=== PATIENT | male | born 1945 | race Caucasian/White ===

== ENCOUNTER 2019-01-19 06:18 | Emergency (ER) | payer MEDICARE, OTHER ==
[~2019-01-19] VITALS: Ht 177.8 cm; Wt 62.1 kg
--- OUTSIDE RECORDS SUMMARY | ~2019-01-19 | XMS | Clinical Summary ---
Demographics + + + | Address | [address] | | | [place] [address] | + + + | Home Phone | | + + + | Preferred Language | Unknown | + + + | Marital Status | | + + + | Nondenominational Affiliation | MET | + + + | Race | White | + + + | Ethnic Group | Not or | + + + Author + + + | Author | [facility] | + + + | Organization | [facility] | + + + | Address | Unknown | + + + | Phone | Unavailable | + + + Support + + + + + | Name | Relationship | Address | Phone | + + + + + | Marnie Osorio | ECON | [address] | | | | | [place], [place] | | | | | [address] | | + + + + + | Zoey Marie | ECON | Unknown | | + + + + + | Dionne Alba | ECON | Unknown | | + + + + + Care Team Providers + +------+ + | Care Architecture Intern Name | Role | Phone | + +------+ + | Vik Kraft DO | PCP | | + +------+ + Source Comments [facility] is fully live on both EpicCare Ambulatory and EpicCare InPatient.Formerly [facility], Later [facility] Allergies No Known Allergies Medications + + + +---------+------+------+-------+ | Medication | Sig | Dispensed | Refills | Star | End | Statu | | | | | | t | Date | s | | | | | | Date | | | + + + +---------+------+------+-------+ | levothyroxine 75 | Take 75 mcg by mouth | | 0 | | | Activ | | mcg Oral Tablet | once daily. | | | | | e | + + + +---------+------+------+-------+ | metoprolol | Take 50 mg by mouth | | 0 | | | Activ | | tartrate 25 mg Oral | two times daily. | | | | | e | | Tablet | | | | | | | + + + +---------+------+------+-------+ | | Take 1-2 Tabs by | 20 Tab | 0 | 03/1 | | Activ | | HYDROcodone-acetamin | mouth every four | | | 6/20 | | e | | ophen 5-325 mg Oral | hours as needed. Not | | | 12 | | | | Tablet | to exceed 10 | | | | | | | | tablets per any 24 | | | | | | | | hour period. (Not to | | | | | | | | exceed 3250 mg of | | | | | | | | acetaminophen from | | | | | | | | all products per 24 | | | | | | | | hour period.) | | | | | | + + + +---------+------+------+-------+ | warfarin 5 mg Oral | Take 5 mg by mouth | | 0 | | | Activ | | tablet | once daily. | | | | | e | + + + +---------+------+------+-------+ | Iron, Carbonyl 65 | Take by mouth. | | 0 | | | Activ | | mg Oral tablet | | | | | | e | + + + +---------+------+------+-------+ | pyridoxine | Take 200 mg by mouth | | 0 | | | Activ | | (VITAMIN B-6) 100 mg | once daily. | | | | | e | | Oral tablet | | | | | | | + + + +---------+------+------+-------+ | cyanocobalamin | Take 1,000 mcg by | | 0 | | | Activ | | (VITAMIN B-12) 1,000 | mouth once daily. | | | | | e | | mcg Oral tablet | | | | | | | + + + +---------+------+------+-------+ | gabapentin 300 mg | Take 300 mg by mouth | | 0 | | | Activ | | Oral capsule | three times daily. | | | | | e | | | | | | | | | + + + +---------+------+------+-------+ | NITROGLYCERIN SL | Place under tongue. | | 0 | | | Activ | | | | | | | | e | + + + +---------+------+------+-------+ | CEPHALEXIN ORAL | Take 300 mg by | | 0 | | | Activ | | | mouth. | | | | | e | + + + +---------+------+------+-------+ Active Problems + + + | Problem | Noted Date | + + + | S/P AVR (aortic valve replacement) | 06/07/2010 | + + + | S/P MVR (mitral valve replacement) | 06/07/2010 | + + + | Duodenal ulcer without hemorrhage or perforation and without | 05/06/2010 | | obstruction | | + + + + + | Overview: ICD10 | + + + + + | Endocarditis | 03/24/2010 | + + + Social History + +-------+ +--------+------+ | Tobacco [...] recent travel history available. | + + Last Filed Vital Signs + + + + + | Vital Sign | Reading | Time Taken | Comments | + + + + + | Blood Pressure | 122/65 | 05/11/2012 1:09 PM | | | | | PST | | + + + + + | Pulse | 79 | 05/11/2012 1:09 PM | | | | | PST | | + + + + + | Temperature | 36.4 C (97.6 F) | 05/11/2012 1:09 PM | | | | | PST | | + + + + + | Respiratory Rate | 16 | 06/04/2011 8:21 AM | | | | | PDT | | + + + + + | Oxygen Saturation | 82% | 05/11/2012 1:09 PM | | | | | PST | | + + + + + | Inhaled Oxygen | - | - | | | Concentration | | | | + + + + + | Weight | 71.3 kg (157 lb 3.2 | 05/11/2012 1:09 PM | | | | oz) | PST | | + + + + + | Height | 177.8 cm (5' 10") | 05/31/2011 7:58 PM | | | | | PDT | | + + + + + | Body Mass Index | 22.56 | 05/31/2011 7:58 PM | | | | | PDT | | + + + + + Plan of Treatment + + + + + | Health Maintenance | Due Date | Last Done | Comments | + + + + + | Pneumococcal | | | | | vaccination (1 of 2 | 2 | | | | - PCV13) | | | | + + + + + | Influenza (Flu) | | | | | vaccination (#1) | 9 | | | + + + + + Results Not on filefrom Last 3 Months Insurance + +--------+ +--------+ + +--------+ | Payer | Benefi | Subscriber | Effect | Phone | Address | Type | | | t Plan | ID | kvng | | | | | | / | | Dates | | | | | | Group | | | | | | + +--------+ +--------+ + +--------+ | MEDICARE | MEDICA | xxxxxxxxxxx | 03/21/19 | [phone] | [address] | [address] | | | RE A & | | 12-Pre | 1 [id number] | [address] | | | B | | sent | | [place], [place] | | | | | | | | [address] | | + +--------+ +--------+ + +--------+ | PROV PREF DIRECT | PROV | [id number] | 03/21/19 | | | PPO | | | PREF | | 10-Pre | | | | | | DIRECT | | sent | | | | + +--------+ +--------+ + +--------+ + +--------+ +--------+ + + | Guarantor Name | Accoun | Relation to | Date | Phone | Billing Address | | | t Type | Patient | of | | | | | | | | | | + +--------+ +--------+ + + | Clay Osorio | Person | Self | [birth year] | [address] | | | al/Fam | | 1946 | [phone] | [place] | | | scar | | | 2 (Home) | [phone] | + +--------+ +--------+ + + Advance Directives + + + + + | Type | Date Recorded | Patient | Explanation | | | | Inspector Casing | | + + + + + | Advance | | | | | Directives and | | | | | Living Will | | | | + + + + + | Advance | 06/01/2011 12:00 | | ADVANCE DIRECTIVE | | Directives and | AM | | | | Living Will | | | | + + + + + | Power of | | | | | Bark Press Operator | | | | + + + + + + + + + + | Code Status | Date | Date | Comments | | | Activated | Inactivated | | + + + + + | Full Code | 06/01/2011 | 06/04/2011 | | | | 7:28 AM | 6:00 PM | | + + + + + + + + +---+ | | | | | + + + +---+ | Full Code | 03/30/2010 | 07/28/2010 | | | | 8:09 PM | 12:37 AM | | + + + +---+ + + + +---+ | | | | | + + + +---+ | Full Code | 03/24/2010 | 03/30/2010 | | | | 2:46 PM | 2:52 PM | | + + + +---+
--- OUTSIDE RECORDS SUMMARY | ~2019-01-19 | XMS | Encounter Summary ---
Demographics + + + | Address | [address] | | | [place] [address] | + + + | Home Phone | | + + + | Preferred Language | Unknown | + + + | Marital Status | | + + + | Mu-Ism Affiliation | [id number] | + + + | Race | Unknown | + + + | Ethnic Group | Unknown | + + + Author + + + | Author | [facility] | | | and [place] | + + + | Organization | [facility] | | | and [place] | + + + | Address | Unknown | + + + | Phone | Unavailable | + + + Support + + + + + | Name | Relationship | Address | Phone | + + + + + | Marnie Osorio | ECON | [address] | | | | | [place] | | | | | [address] | | + + + + + Care Team Providers + +------+ + | Care Court Officer Name | Role | Phone | + +------+ + | Jesus Damon MD | PCP | | + +------+ + Reason for Visit + + + | Reason | Comments | + + + | Care Coordination | Appointment | + + + Encounter Details +--------+ + + + + | Date | Type | Department | Care Team | Description | +--------+ + + + + | 01/15/ | Telephone | [facility] | Nori Edwards, | Care Coordination | | 2019 | | INFECTIOUS DISEASE | Electrical Manufacturing Engineer | (Appointment) | | | | [address] | | | | | | [place], [place] | | | | | | [address] | | | | | | [phone] | | | +--------+ + + + + Social History + +-------+ +--------+------+ | Tobacco Use | Types | Packs/Day | Years | Date | | | | | Used | | + +-------+ +--------+------+ | Former Smoker | | 1 | | | + +-------+ +--------+------+ + + | Comments: quit about 33 yrs ago | + + + + + | Sex Assigned [...] as of this encounter Plan of Treatment +--------+---------+ + + + | Date | Type | Specialty | Care Team | Description | +--------+---------+ + + + | 03/01/ | Office | Cardiology | Kristy Luna DO | | | 2019 | Visit | | [address] | | | | | | [place] | | | | | | [phone] | | | | | | | | +--------+---------+ + + + documented as of this encounter Visit Diagnoses Not on filedocumented in this encounter"
--- OUTSIDE RECORDS SUMMARY | ~2019-01-19 | XMS | Encounter Summary ---
Demographics + + + | Address | [address] | | | [place] [address] | + + + | Home Phone | | + + + | Preferred Language | Unknown | + + + | Marital Status | | + + + | Jehovah'S Witness Affiliation | MET | + + + | Race | White | + + + | Ethnic Group | Not or | + + + Author + + + | Author | [facility] | + + + | Organization | [facility] | + + + | Address | Unknown | + + + | Phone | Unavailable | + + + Support + + + + + | Name | Relationship | Address | Phone | + + + + + | Marnie Osorio | ECON | [address] | | | | | [place], [place] | | | | | [address] | | + + + + + | Zoey Marie | ECON | Unknown | | + + + + + | Dionne Alba | ECON | Unknown | | + + + + + Care Team Providers + +------+ + | Care Treasury Director Name | Role | Phone | + +------+ + | Vik Kraft DO | PCP | | + +------+ + Reason for Visit PROC - Outpatient Surgery (Routine) +--------+ + + + + + | Status | Reason | Specialty | Diagnoses / | Referred By | Referred To | | | | | Procedures | Contact | Contact | +--------+ + + + + + | Closed | Specialty | Cardiac | Diagnoses | [place], | [place], | | | Services | Surgery | | Pranav Lemus, | MD Tiburcio | | | Required | | Endocarditis | DO [place] | [address] | | | | | , valve | [place] | [place] | | | | | unspecified, | CARDIOLOGY | [address] [place], | | | | | unspecified | [address] | [place] | | | | | cause | [place] | [address] | | | | | Procedures | [address] | | | | | | MI REMV | F | | | | | | [address] | [place], [place] | | | | | | ONE | [id number] | | | | | | LD/THORACOTM | Phone: | | | | | | Y MI REMV | [phone] | | | | | | EPICARD SYST | Fax: | | | | | | TWO | [phone] | | | | | | LD/THORACOTM | | | | | | | Y MI REMV | | | | | | | PERM XVEN | | | | | | | MATTHEW/VIVIEN | | | | | | | ACOTMY | | | +--------+ + + + + + Encounter Details +--------+---------+ + + + | Date | Type | Department | Care Team | Description | +--------+---------+ + + + | 04/27/ | Office | Cardiothoracic | Tiburcio Chung, | S/P AVR (aortic | | 2011 | Visit | Surgery at [facility] [address] | MD | valve replacement); | | | | [address] | | S/P MVR (mitral | | | | Rd Mailcode: [id number] | | valve replacement) | | | | Physician's | | | | | | [place], | | | | | | [place] [address] | | | | | | [phone] | | | +--------+---------+ + + + [...] + + + | Blood Pressure | 106/66 | 04/27/2011 2:58 PM | | | | | PST | | + + + + + | Pulse | 116 | 04/27/2011 2:58 PM | | | | | PST | | + + + + + | Temperature | - | - | | + + + + + | Respiratory Rate | 15 | 04/27/2011 2:58 PM | | | | | PST | | + + + + + | Oxygen Saturation | 100% | 04/27/2011 2:58 PM | | | | | PST | | + + + + + | Inhaled Oxygen | - | - | | | Concentration | | | | + + + + + | Weight | 67.1 kg (148 lb) | 04/27/2011 2:58 PM | | | | | PST | | + + + + + | Height | - | - | | + + + + + | Body Mass Index | 21.19 | 06/24/2010 3:05 AM | | | | | PDT | | + + + + + documented in this encounter Patient Instructions Patient Instructions Piero Goel - 04/27/2011 3:54 PM PST1. Last dose of warfarin (coumad in) on Wednesday, May 25, 2011 2. Start enoxaparin 60 mg (lovenox) sub-cutaneously every 12 hours as directed by pharmaci st on Saturday May 28, 2011 (morning and night) 3. Continue taking enoxaparin shots over the weekend (May 28 and May 29, and in AM of May 30). 4. Arrive at [facility] on Tuesday, May 31, 2011 in the afternoon for admission for anti-coagul ation 5. Tentatively plan surgery on Tuesday. (Electronically Signed) Piero Goel PA-C [facility] Cardiac Surgery documented in this encounter Progress Notes Piero Goel - 04/27/2011 4:03 PM [facility] Date of Service: 04/27/2011 Referring Providers: Pranav Souza DO Patient Care Team: Vik Kraft as PCP - General (Family Medicine) Pranav Souza (Internal Medicine) Reason for Visit: Postoperative check Subjective: Mr. Clay Osorio is well known to our service. 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 He had multiple complications including empyema requiring thoracotom y, duodenum perforation requiring ex-lap and PEG/J tube, renal failure and marked deconditio isela during his 4 month hospitalization. Over past 4 months, he has noticed development of quarter-sized bullae/pustule at inferior most sternotomy incision. It bursts spontaneously and yields blood/purulent fluid. Denies fevers, chills, pain. Saw a Cardiac Surgeon in [place], [place] for this. Obtained CT scan which demonstrated retained epicardial wires (no fl uid accumulation) and due to complexity, was referred to [facility] Cardiac Surgery. Has been on/ off antibiotics over the Fall/Winter secondary to development of PNA requiring hospitalizati on in [facility]. Most recently placed on SMX/TMZ for 1 month by his PCP for presumed staph infection. He has since recovered from his most recent illness/hospitalization and is seek ing our opinion. Other than above, he states that he is feeling well and making progress with his strength, energy, and appetite. Has been taking warfarin as directed and getting INR followed. The patient's current medications include: enoxaparin (LOVENOX) 60 mg/0.6 mL Subcutaneous Syringe, inject 1mg/kg by subcutaneous route every 12 hours levothyroxine 75 mcg Oral Tablet, Take 75 mcg by mouth once daily. metopro lol tartrate 25 mg Oral Tablet, Take 25 mg by mouth once daily. trimethoprim-sulfamethoxaz ole 160-800 mg Oral Tablet, Take 1 Tab by mouth two times daily. warfarin (COUMADIN) 4 mg Oral Tablet, Take 4 mg by mouth once daily. Objective: Vital Signs: BP 106/66 | Pulse 116 | RR 15 | Wt 67.132 kg (148 lb) | SpO2 100% General: thin middle-aged man, smiling,alert and cooperative. Chest: CTA bilateral. Chest Incision: well healed sternotomy incision. No clicks/rubs/crepitus with movement of sternum. Most inferior sternotomy incision has 2mm ulceration, healing, without surrounding erythema or purulence. Non-tender to palpation. Cardiovascular: irreg-irreg. (+) mechanical clicks. No rubs or gallops Extremities: [place], warm, dry, no peripheral edema . Studies: I personally reviewed the patient's CT abdomen form from outside hospital (November 10 2010) which demonstrates retained epicardial wire, well-healed sternotomy incision with intact peña rnal wires. Assessment/Plan: 66 yo man 1year s/p AVR/MVR mechanical valve replacement for MSSA endocarditis, multiple co mplications with extended ICU stay, now presents with retained epicardial wires and likely s uperficial infection vs. Inflammatory response secondary to same. As he is on life-long coumadin for his mechanical valves/a-fib, he will require bridging wi th enoxaparin and admission to [facility] for heparinization prior to surgery. Plan for surgery M arch 2011. He is to continue his TMP/SMZ for suppressive therapy until time of hospitalization. 1. Last dose of warfarin (coumadin) on Wednesday, May 25, 2011 2. Start enoxaparin 60 mg (lovenox) sub-cutaneously every 12 hours as directed by pharmaci st on Saturday May 28, 2011 (morning and night) 3. Continue taking enoxaparin shots over the weekend (May 28 and May 29, and in AM of May 30). 4. Arrive at [facility] on Tuesday, May 31, 2011 in the afternoon for admission for anti-coagul ation 5. Tentatively plan surgery on Tuesday. Above discussed with his PCP, Dr. Kraft (Electronically Signed) Piero Goel PA-C [facility] Cardiac Surgery documented in this encounter Plan of Treatment Not on filedocumented as of this encounter Procedures + +--------+ + + + | Procedure Name | Priori | Date/Time | Associated Diagnosis | Comments | | | ty | | | | + +--------+ + + + | OUTSIDE CARDIOLOGY | | 04/27/2011 | | Results for this | | | | 12:00 AM | | procedure are in the | | | | PST | | results section. | + +--------+ + + + | OUTSIDE CARDIOLOGY | | 04/27/2011 | | Results for this | | | | 12:00 AM | | procedure are in the | | | | PST | | results section. | + +--------+ + + + documented in this encounter Results OUTSIDE CARDIOLOGY (04/27/2011 12:00 AM PST) + + + | Narrative | Performed At | + + + | | | | | | + + + + + | Procedure Note | + + | Angy Carrillo - 03/30/2012 2:48 PM PST | + + OUTSIDE QUITA (04/27/2011 12:00 AM PST) + + + | Narrative | Performed At | + + + | | | | | | + + + + + | Procedure Note | + + | Angy Carrillo - 02/29/2012 1:47 PM PST | + + documented in this encounter Visit Diagnoses + + | Diagnosis | + + | S/P AVR (aortic valve replacement) Heart valve replaced by other means | + + | S/P MVR (mitral valve replacement) Heart valve replaced by other means | + + documented in this encounter"
--- OUTSIDE RECORDS SUMMARY | ~2019-01-19 | XMS | Clinical Summary ---
Demographics + + + | Address | [address] | | | [place] [address] | + + + | Home Phone | | + + + | Preferred Language | Unknown | + + + | Marital Status | | + + + | Bahai Affiliation | 1077 | + + + | Race | Unknown | + + + | Ethnic Group | Unknown | + + + Author + + + | Author | [facility] | | | and [place] | + + + | Organization | [facility] | | | and [place] | + + + | Address | Unknown | + + + | Phone | Unavailable | + + + Support + + + + + | Name | Relationship | Address | Phone | + + + + + | Marnie Osorio | ECON | [address] | | | | | [place] | | | | | [address] | | + + + + + Care Team Providers + +------+ + | Care Automotive Accessory Installer Name | Role | Phone | + +------+ + | Jesus Damon MD | PCP | | + +------+ + Allergies + + + + + + | Active Allergy | Reactions | Severity | Noted | Comments | | | | | Date | | + + + + + + | Uncoded | Other (See Comments) | Low | 08/03/19 | "runny nose and | | Nonscreenable | | | 16 | itchy eyes" | | Allergen | | | | | + + + + + + Medications + + + +---------+------+------+-------+ | Medication | Sig | Dispensed | Refills | Star | End | Statu | | | | | | t | Date | s | | | | | | Date | | | + + + +---------+------+------+-------+ | metoprolol | Take 25 mg by mouth | | 0 | 11/19 | | Activ | | tartrate (LOPRESSOR) | 2 times daily. | | | 07/08 | | e | | 25 mg tablet | | | | 12 | | | + + + +---------+------+------+-------+ | nitroglycerin | Dissolve 1 tablet | | 0 | /1 | | Activ | | (NITROSTAT) 0.4 mg | under tongue every 5 | | | 4/20 | | e | | SL tablet | minutes up to 3 | | | 12 | | | | | tablets total for | | | | | | | | chest pain. Call 911 | | | | | | | | or go to ER if not | | | | | | | | relieved. | | | | | | + + + +---------+------+------+-------+ | warfarin | Take 1 tablet by | | 0 | 11/19 | | Activ | | (COUMADIN) 5 mg | mouth once daily at | | | 4/20 | | e | | tablet | 6 pm | | | 12 | | | + + + +---------+------+------+-------+ | levothyroxine | Take 75 mcg by mouth | | 0 | 091 | | Activ | | (SYNTHROID, | Daily. | | | 4/20 | | e | | LEVOTHROID) 75 MCG | | | | 12 | | | | tablet | | | | | | | + + + +---------+------+------+-------+ | Ferrous Sulfate | 2 tabs daily | | 0 | 08/2 | | Activ | | Dried (GNP IRON) 200 | | | | 2/20 | | e | | (65 FE) MG TABS | | | | 12 | | | + + + +---------+------+------+-------+ | pyridOXINE | Take 100 mg by mouth | | 0 | | | Activ | | (VITAMIN B-6) 50 mg | Daily. | | | | | e | | tablet | | | | | | | + + + +---------+------+------+-------+ | vitamin B-12 | Take 1,000 mcg by | | 0 | | | Activ | | (CYANOCOBALAMIN) | mouth Daily. | | | | | e | | 1000 MCG tablet | | | | | | | + + + +---------+------+------+-------+ | cephalexin | Take 250 mg by mouth | | 0 | | | Activ | | (KEFLEX) 250 mg | 2 times daily. | | | | | e | | capsule | | | | | | | + + + +---------+------+------+-------+ | gabapentin | Take 1 tablet by | 90 | 2 | 01/2 | | Activ | | (NEURONTIN) 300 mg | mouth three times | capsule | | 8/20 | | e | | capsuleIndications: | daily as needed. | | | 13 | | | | Bilateral ankle pain | | | | | | | + + + +---------+------+------+-------+ | MULTIPLE VITAMIN | Take by mouth | | 0 | | | Activ | | PO | daily. | | | | | e | + + + +---------+------+------+-------+ | Lipoic Acid 150 MG | Take 150 mg by mouth | | 0 | | | Activ | | CAPS | daily as needed | | | | | e | | | (1-2 tabs daily | | | | | | | | prn). | | | | | | + + + +---------+------+------+-------+ | Ascorbic Acid | Take 1,000 mg by | | 0 | | | Activ | | (VITAMIN C) 1000 MG | mouth daily. | | | | | e | | tablet | | | | | | | + + + +---------+------+------+-------+ | digoxin (LANOXIN) | Take 1 tablet by | | 0 | 07/2 | | Activ | | 125 mcg tablet | mouth daily. | | | 3/20 | | e | | | | | | 18 | | | + + + +---------+------+------+-------+ | ferrous sulfate | Take 325 mg by mouth | | 0 | | | Activ | | 325 mg tablet | 2 (two) times | | | | | e | | | daily. | | | | | | + + + +---------+------+------+-------+ | Flaxseed, Linseed, | Take by mouth | | 0 | | | Activ | | (FLAXSEED OIL) 1000 | daily. | | | | | e | | MG CAPS | | | | | | | + + + +---------+------+------+-------+ | folic acid 1 mg | Take 1 mg by mouth | | 0 | | | Activ | | tablet | daily. | | | | | e | + + + +---------+------+------+-------+ | metoprolol | Take 1 tablet by | | 0 | 06/2 | | Activ | | succinate | mouth nightly. | | | 07/08 | | e | | (TOPROL-XL) 25 mg 24 | | | | 19 | | | | hr tablet | | | | | | | + + + +---------+------+------+-------+ | | Take 1 tablet by | | 0 | 03/1 | | Activ | | sulfamethoxazole-tri | mouth 2 (two) times | | | 20 | | e | | methoprim (BACTRIM | daily. | | | 19 | | | | DS) 800-160 mg per | | | | | | | | tablet | | | | | | | + + + +---------+------+------+-------+ | gabapentin | Take 300 mg by mouth | | 0 | | | Activ | | (NEURONTIN) 300 mg | every evening. | | | | | e | | capsule | | | | | | | + + + +---------+------+------+-------+ | nitroglycerin | Place 1 tablet under | | 0 | 11/1 | | Activ | | (NITROSTAT) 0.4 mg | the tongue every 5 | | | 2/20 | | e | | SL tablet | (five) minutes as | | | 18 | | | | | needed. | | | | | | + + + +---------+------+------+-------+ | SF 5000 PLUS 1.1 % | | | 0 | 07/0 | | Activ | | CREA | | | | 8/20 | | e | | | | | | 19 | | | + + + +---------+------+------+-------+ | metoprolol | | | 0 | 10/0 | | Activ | | tartrate (LOPRESSOR) | | | | 3/20 | | e | | 50 mg tablet | | | | 18 | | | + + + +---------+------+------+-------+ | amoxicillin | | | 0 | 02/18 | 12/20 | Disco | | (AMOXIL) 500 MG | | | | 04/09 | 05/10 | ntinu | | capsule | | | | 18 | 19 | ed | + + + +---------+------+------+-------+ Active Problems + + + | Problem | Noted Date | + + + | Muscular wasting and disuse atrophy, not elsewhere classified | 10/12/2018 | + + + | Persistent atrial fibrillation | 02/01/2018 | + + + | Thyroid disease | 01/30/2018 | + + + | Anticoagulated on Coumadin | 10/10/2017 | + + + | Dyslipidemia | 10/10/2017 | + + + | History of mitral valve replacement with mechanical valve | 10/10/2017 | + + + | Supratherapeutic INR | 08/03/2015 | + + + | Atrial flutter | 03/08/2013 | + + + + + | Overview: Last Assessment & Plan: | | A fib/flutter. On warfarin, mechanical heart valve. | | 24hr HM, 02/10/2016: A fib, 69-141, averaging 95bpm. | + + + + + | Essential hypertension | 03/08/2013 | + + + + + | Overview: Last Assessment & Plan: HTN, controlled, continue | | current meds. Labs: 02/05/2016: Sodium 138, potassium 5, glucose | | 88, BUN 30/creatinine 1.27. GFR 56. CRP 6.5. Hemoglobin | | 12.9/hematocrit 39. Platelets 239. ESR 16 | + + + + + | Valvular heart disease | 03/08/2013 | + + + + + | Overview: Last Assessment & Plan: AVR (#23 SJM) / MVR (#29 | | SJM). Anticoagulation per PCP. Endocarditis prophylaxis | | reenforced. 70yo WM, doing relatively well, back today to | | follow-up on his 24-hour Holter monitor. He reports he tries to | | stay as active as he can with woodworking but has difficulty with | | prolonged walking due to neuropathy to his feet. He denies any | | significant chest discomfort, shortness of breath, or | | lightheadedness. He walked 500 feet with me today at his own | | moderate pace and tolerated it well without any chest pain, | | palpitations, syncope, dyspnea, or lightheadedness but sometimes | | has problem with his balance but self corrects unsteady on his | | feet. He reports episodes of intermittent palpitations, and time | | his heart rate discussed past but for the most part this is | | relatively short-lived. He denied any new visual disturbances, | | dysarthria, dysphasia, lateralizing signs or symptoms. He also | | denies any significant bruising or bleeding. Results 24-hour | | Holter discussed with patient and results personally reviewed by | | me. It showed atrial fibrillation with rate 69-1 41 bpm and | | averaging in the 90s. His EKG may showed atrial fibrillation | | with controlled ventricular response of 81 bpm. We made no | | changes to his medications today as his blood pressure in the low | | range with a systolic of 95-100 mmHg. I will have him follow-up | | with our nurse practitioner, Mary Anne Rizzo ,whom he met | | today in 6 months.Hx CAB03/30/2010, AVR/MVR.Hx PCI/stent: noHx | | Pacemaker/ICD: noLast Cath: naLast Echo, 01/27/2012: LVEF 50-60%, | | AVR/MVR stable, mild Pulmonary HTN.Last stress test, 01/02/2015: | | Lexiscan, images NML, LVEF 65%.ECG, 08/03/2015: AJoy fib. | | Ventricular rate 81 bpm. QRS 90. Personally reviewed by Antonino | | 02/05/2016: Sodium 138, potassium 5, glucose 88, BUN | | 30/creatinine 1.27. GFR 56. CRP 6.5. Hemoglobin | | 12.9/hematocrit 39. Platelets 239. ESR 16 | + + + + + | Osteomyelitis of sternum | 10/05/2012 | + + + + + | Overview: Last Assessment & Plan: Sternal osteomyelitis, | | chronic antibiotic suppression managed by Dr Burgess. | + + + + + | Peripheral neuropathy | 04/18/2012 | + + + | PARESTHESIA | 11/17/2011 | + + + | FOOT DROP, LEFT | 11/17/2011 | + + + | WEAKNESS, LEFT SIDE OF BODY | 11/17/2011 | + + + | Other severe protein-calorie malnutrition | 01/25/2011 | + + + | History of shingles | 01/24/2011 | + + + + + | Overview: Last Assessment & Plan: The patient has not had any | | signs or symptoms of recurrence, now off Valtrex for 48 hours. | + + + + + | Pain | 01/24/2011 | + + + | Arm edema | 01/22/2011 | + + + + + | Overview: Last Assessment & Plan: | | This has resolved. | + + + + + | H/O mechanical aortic valve replacement | 01/19/2011 | + + + + + | Overview: Last Assessment & Plan: Blood cultures negative | | prior to antibiotics at the outside hospital. No evidence of | | endocarditis. | + + + + + | Anticoagulation monitoring, INR range 2.5-3.5 | 08/29/2010 | + + + + + | Overview: For Mechanical Aortic and Mitral Valves. | + + + +---+ | Chronic diarrhea | | + +---+ + + | Overview: JOLANTA [id number] Decision | + + + +---+ | PURE HYPERCHOLESTEROLEMIA | | + +---+ | HYPERLIPIDEMIA | | + +---+ | ORGANIC IMPOTENCE | | + +---+ | TRANSIENT DISORDER INITIATING/MAINTAINING SLEEP | | + +---+ | AORTIC VALVE REPLACEMENT, HX OF | | + +---+ | ENDOCARDITIS | | + +---+ Encounters +--------+ + + + + | Date | Type | Specialty | Care Team | Description | +--------+ + + + + | 01/15/ | Telephone | Infectious Diseases | Nori Edwards, | Care Coordination | | 2019 | | | Electronics Commodity Manager | (Appointment) | +--------+ + + + + | 01/09/ | Office | Infectious Diseases | Juanito Burgess DO | Osteomyelitis of | | 2019 | Visit | | | sternum (HCC) | | | | | | (Primary Dx) | +--------+ + + + + from Last 3 Months Immunizations + + + + | Name | Dates Previously Given | Next Due | + + + + | INFLUENZA 66 Y OR >, | 03/23/2016, 12/27/2013 | | | TRIVALENT HIGH-DOSE | | | + + + + | INFLUENZA TRIV | 12/19/2012 | | | W/PRES(PED/ADOL/ADUL | | | | T),MULTIDOSE | | | + + + + | PNEUMOCOCCAL | 08/04/2015 | | | CONJUGATE 13-VALENT | | | | (PCV13) | | | + + + + | PNEUMOCOCCAL | 07/29/2014 | | | POLYSACCHARIDE | | | | 23-VALENT (PPSV23) | | | + + + + | TDAP, (ADOL/ADULT) | 08/07/2011 | | + + + + | ZOSTER, 1 DOSE | 12/19/2009 | | | (ZOSTAVAX) | | | + + + + Family [...] | | + +------+ + + | Father | | | | + +------+ + + | Mother | | | cancer,Alzheimers Disease | | | | (Age | | | | | 74) | | + +------+ + + | Mother | | | | + +------+ + + | Paternal Grandmother | | | | + +------+ + + | Paternal Grandmother | | | | + +------+ + + Social History + +-------+ +--------+------+ [...] | 65.3 kg (144 lb) | 01/09/2019 142 PDT | + + + + | Height | 177.8 cm (5' 10") | 09/11/2018 1505 PDT | + + + + | Body Mass Index | 20.66 | 09/11/2018 1505 PDT | + + + + Plan of Treatment +--------+---------+ + + + | Date | Type | Specialty | Care Team | Description | +--------+---------+ + + + | 03/01/ | Office | Cardiology | Kristy Luna DO | | | 2019 | Visit | | [address] | | | | | | [facility] [place] | | | | | | [address] | | | | | | | | +--------+---------+ + + + + + + + + | Health Maintenance | Due Date | Last Done | Comments | + + + + + | Hepatitis C | | | | | Screening | 7 | | | + + + + + | Colorectal Cancer | | | | | Screening | 7 | | | | (Colonoscopy) | | | | + + + + + | AAA Screening | | | | | | 2 | | | + + + + + | Adult Annual | | | | | Wellness Visit | 9 | | | + + + + + | Statin Therapy | | | | | (optimal intensity) | 9 | | | + + + + + | Vaccine: Zoster (3 | | 09/17/2018, 12/19/2009 | | | of 3) | 9 | | | + + [...] + + + | Vaccine: Influenza | Completed | 12/05/2018, 01/09/2018, | | | | | 01/14/2017, Additional history | | | | | exists | | + + + + + Procedures + +--------+ + + + | Procedure Name | Priori | Date/Time | Associated Diagnosis | Comments | | | ty | | | | + +--------+ + + + | LABS - EXTERNAL SCAN | | 12/05/2018 | | Results for this | | | | 0:00 PDT | | procedure are in the | | | | | | results section. | + +--------+ + + + from Last 3 Months Results LABS - EXTERNAL SCAN (12/05/2018 0:00 PDT) + + + | Narrative | Performed At | + + + | Ordered by an | | | unspecified provider. | | + + + from Last 3 Months Insurance + +--------+ +--------+ +---------+--------+ | Payer | Benefi | Subscriber | Effect | Phone | Address | Type | | | t Plan | ID | kvng | | | | | | / | | Dates | | | | | | Group | | | | | | + +--------+ +--------+ +---------+--------+ | MEDICARE | MEDICA | [id number] | 03/21/19 | [phone] | | Medica | | | RE | | 12-Pre | 5 | | re | | | PART A | | sent | | | | | | AND B | | | | | | + +--------+ +--------+ +---------+--------+ | GEHA | GEHA | [id number] | 03/21/19 | [phone] | | Indemn | | | MDCR | | 10-Pre | 6 | | ity | | | SUPPL | | sent | | | | + +--------+ +--------+ +---------+--------+ | MEDICARE | MEDICA | [id number] | 03/21/19 | [phone] | | Medica | | | RE | | 12-Pre | 5 | | re | | | PART A | | sent | | | | | | AND B | | | | | | + +--------+ +--------+ +---------+--------+ | GEHA | GEHA | [id number] | 01/09/ | [phone] | | Indemn | | | MDCR | | 2019-P | 6 | | ity | | | SUPPL | | resent | | | | + +--------+ +--------+ +---------+--------+ + +--------+ +--------+ + + | Guarantor Name | Accoun | Relation to | Date | Phone | Billing Address | | | t Type | Patient | of | | | | | | | | | | + +--------+ +--------+ + + | Clay Osorio | Person | Self [birth year] | [address] | | | al/Fam | | 1946 | [phone] | [place], [place] | | | scar | | | 2 (Home) | [address] | + +--------+ +--------+ + + | Clay Osorio | Person | Self | [birth year] | [address] | | | al/Fam | | 1946 | [phone] | [place] | | | scar | | | 2 ([place]) | [phone] | + +--------+ +--------+ + + Advance Directives Patient has advance care planning documents on file. For more information, please contact:[facility] [place] [address]
--- OUTSIDE RECORDS SUMMARY | ~2019-01-19 | XMS | Encounter Summary ---
Demographics + + + | Address | [address] | | | [place] [address] | + + + | Home Phone | | + + + | Preferred Language | Unknown | + + + | Marital Status | | + + + | Caodaism Affiliation | MET | + + + | Race | White | + + + | Ethnic Group | Not or | + + + Author + + + | Author | [facility] | + + + | Organization | [facility] | + + + | Address | Unknown | + + + | Phone | Unavailable | + + + Support + + + + + | Name | Relationship | Address | Phone | + + + + + | Marnie Osorio | ECON | [address] | | | | | [place], [place] | | | | | [address] | | + + + + + | Zoey Marie | ECON | Unknown | | + + + + + | Dionne Alba | ECON | Unknown | | + + + + + Care Team Providers + +------+ + | Care Conductor And Engineer Name | Role | Phone | + [...] | | unspecified, | CARDIOLOGY | [address] [place], | | | | | unspecified | [address] | [place] | | | | | cause | [place] | [address] | | | | | Procedures | [address] | | | | | | [address] | F | | | | | | [address] | [place], [place] | | | | | | ONE | [id number] | | | | | | LD/THORACOTM | Phone: | | | | | | Y [address] | [phone] | | | | | | [address] | Fax: | | | | | | TWO | [phone] | | | | | | LD/THORACOTM | | | | | | | Y CO REMV | | | | | | [...] | | | | | | [place], | | | | | | [place] [address] | | | | | | [phone] | | | +--------+---------+ + + + [...] AM of May 30). 4. Arrive at [facility] on Tuesday, May 31, 2011 in the afternoon for admission for anti-coagul ation 5. Tentatively plan surgery on Tuesday. (Electronically Signed) Piero Goel PA-C [facility] Cardiac Surgery documented in this encounter Progress Notes Piero Goel - 04/27/2011 4:03 PM [facility] Date of Service: 04/27/2011 Referring Providers: Pranav Souza DO Patient Care Team: Vik Kraft as PCP - General (Family Medicine) Pranav Souza (Internal Medicine) Reason for Visit: Postoperative check Subjective: Mr. Clay Osorio is well known to our service. He is a 66 yo man from [place], [place] who presented with MSSA double valve [...] chills, pain. Saw a Cardiac Surgeon in [place], [place] for this. Obtained CT scan which demonstrated retained epicardial wires (no fl uid accumulation) and due to complexity, was referred to [facility] Cardiac Surgery. Has been on/ off antibiotics over the Fall/Winter secondary to development of PNA requiring hospitalizati on in [facility]. Most recently placed on SMX/TMZ for [...] mechanical clicks. No rubs or gallops Extremities: Tillar, warm, dry, no peripheral edema . Studies: [...] bridging wi th enoxaparin and admission to [facility] for heparinization prior to surgery. Plan for [...] AM of May 30). 4. Arrive at [facility] on Tuesday, May 31, 2011 in the afternoon for admission for anti-coagul ation 5. Tentatively plan surgery on Tuesday. Above discussed with his PCP, Dr. Kraft (Electronically Signed) Piero Goel PA-C [facility] Cardiac Surgery documented in this encounter Plan [...]
--- OUTSIDE RECORDS SUMMARY | ~2019-01-19 | XMS | Encounter Summary ---
Demographics + + + | Address | [address] | | | [place] [address] | + + + | Home Phone | | + + + | Preferred Language | Unknown | + + + | Marital Status | | + + + | Oriental Orthodox Affiliation | MET | + + + | Race | White | + + + | Ethnic Group | Not or | + + + Author + + + | Author | [facility] | + + + | Organization | [facility] | + + + | Address | Unknown | + + + | Phone | Unavailable | + + + Support + + + + + | Name | Relationship | Address | Phone | + + + + + | Marnie Osorio | ECON | [address] | | | | | [place], [place] | | | | | [address] | | + + + + + | Zoey Marie | ECON | Unknown | | + + + + + | Dionne Alba | ECON | Unknown | | + + + + + Care Team Providers + +------+ + | Care Business Coordinator Name | Role | Phone | + +------+ + | Vik Kraft DO | PCP | | + +------+ + Encounter Details +--------+ + + + + | Date | Type | Department | Care Team | Description | +--------+ + + + + | 04/28/ | Procedure - | Cardiothoracic | Piero Garduno MD | Operative Report | | 2010 | | Surgery at [facility] [address] | [address] | | | | Transcribed | [facility] | [facility] [address] | | | | | [address] Mailcode: [address] | [place], [place] | | | | | Physician's | [address] | | | | | [place], | [phone] | | | | | [place] [address] | | | | | | [phone] | | | +--------+ + + + [...] | + +--------+ + + + | OPERATION RECORD | | 04/28/2010 | | Results for this | | | | 12:00 AM | | procedure are in the | | | | PST | | results section. | + +--------+ + + + documented in this encounter Results OPERATION RECORD (04/28/2010 12:00 AM PST) + + + | Narrative | Performed At | + + + | [id number] | | | [id number] | | | [place] [id number] | | | Date: 04/28/2010 Attending Surgeon: | | | Piero Garduno M.D. Cigar Head Pegger(s): | | | Darnell Smith M.D. | | | Mary Sales PJoyACaitlin Preoperative | | | Diagnosis(es): Right hemothorax/fibrothorax. Postoperative | | | Diagnosis(es): Right hemothorax/fibrothorax. Procedures | | | Performed: Right thoracoscopy, decortication of right upper, middle, | | | and lower lobes, evacuation of pleural effusion. Anesthesia: | | | General endotracheal anesthesia, single-lumen ET tube with | | | bronchial sylvie. 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 He developed hemothorax approximately a | | | week and a half ago which was evacuated with a chest tube | | | initially. He has, since that time, although initially having good | | | drainage developed a loculated right pleural effusion with likely | | | trapped lung and collapsed right lower and middle lobes. He is | | | indicated for decortication/deloculation. Procedure: | | | Patience was brought to the operating room suite. General | | | endotracheal anesthesia was induced. A tracheostomy tube was | | | already in place. This was switched out to an 8.0 ET tube. | | | Single lung ventilation was established using a bronchial sylvie. | | | The patient was positioned in the left lateral decubitus | | | position. The right chest was prepped and draped. Two | | | thoracoscopy port sites were ultimately made, one at the anterior | | | axillary line at approximately seventh interspace, one at the | | | anterior axillary line at approximately fifth interspace. Through | | | these, the chest was evacuated of approximately 1 L of fluid. | | | This was largely serous, some sanguineous. Deloculation was | | | then performed. The lung was freed up from the chest wall | | | posteriorly to the hilum apically to approximately the second to | | | third rib, coming posteriorly, inferiorly to the diaphragm and | | | inferior pulmonary ligament, and anteriorly anterior to the | | | mediastinum. The lung was left attached to the mediastinum and to the | | | area in the vicinity of the azygos vein, secondary to this being | | | the area of scar tissue and possible injury from caval catheter. | | | This was also an area of very dense adhesions. The middle, | | | lower, and the lower part of the upper lobe were found to be | | | contained in a rind. This was removed using a decortication using | | | decortication curettes. The lung was 95% freed up and re-expanded | | | to fill the entire chest cavity. Hemostasis was obtained by direct | | | pressure filling the chest cavity with mini laparotomy pads, 10 in | | | and 10 out. There was still some oozing diffusely from the chest | | | wall, but no discrete bleeding areas. Three chest tubes were | | | placed, anterior and posterior apical 32-Vietnamese and a right angle | | | 32-Vietnamese. These were secured to skin with 2-0 nylon stitches. | | | The patient was taken intubated to the ICU. Please note that the | | | 8-Vietnamese ET tube was changed back to his tracheostomy tube. | | | Findings: Mr. Clay Osorio had a deloculation/decortication done | | | thoracoscopically. He had an old retained hemothorax removed and a | | | fibrous peel on his upper, middle, and lower lobe removed. He had | | | a 95% re-expansion of his lung with this. He did have some | | | diffuse oozing from his chest wall, which was largely controlled | | | with laparotomy pad packing. Piero Garduno M.D. PS / HS | | | [id number] / [id number] / [id number] / | | | | | + + + + + | Procedure Note | + + | Piero Garduno MD - 04/28/2010 12:00 AM [facility] [id number] | | [id number] [facility] | | [id number] Date: 04/28/2010 Attending Surgeon: Piero | | Kelechi Garduno Cigar Head Pegger(s): Darnell Smith M.D. | | Giselle Lucio Preoperative Diagnosis(es):Right | | hemothorax/fibrothorax. Postoperative Diagnosis(es):Right hemothorax/fibrothorax. | | Procedures Performed:Right thoracoscopy, decortication of right upper, middle, and lower | | lobes,evacuation of pleural effusion. Anesthesia:General endotracheal anesthesia, | | single-lumen ET tube with bronchialblocker. Indications:Clay Osorio is a 65-year-old | | gentleman who is several weeks post adouble-valve operation for endocarditis. He | | developed hemothoraxapproximately a week and a half ago which was evacuated with a chest | | tubeinitially. He has, since that time, although initially having gooddrainage | | developed a loculated right pleural effusion with likely trappedlung and collapsed right | | lower and middle lobes. He is indicated fordecortication/deloculation. Procedure: | | Patience was brought to the operating room suite. General endotrachealanesthesia was | | induced. A tracheostomy tube was already in place. Thiswas switched out to an 8.0 ET | | tube. Single lung ventilation wasestablished using a bronchial sylvie. The patient | | was positioned in theleft lateral decubitus position. The right chest was prepped and | | draped.Two thoracoscopy port sites were ultimately made, one at the anterioraxillary | | line at approximately seventh interspace, one at the anterioraxillary line at | | approximately fifth interspace. Through these, the chestwas evacuated of approximately | | 1 L of fluid. This was largely serous, somesanguineous. Deloculation was then | | performed. The lung was freed up fromthe chest wall posteriorly to the hilum apically | | to approximately thesecond to third rib, coming posteriorly, inferiorly to the diaphragm | | andinferior pulmonary ligament, and anteriorly anterior to the mediastinum.The lung was | | left attached to the mediastinum and to the area in thevicinity of the azygos vein, | | secondary to this being the area of scartissue and possible injury from caval catheter. | | This was also an area ofvery dense adhesions. The middle, lower, and the lower part of | | the upper lobe were found to becontained in a rind. This was removed using a | | decortication usingdecortication curettes. The lung was 95% freed up and re-expanded | | tofill the entire chest cavity. Hemostasis was obtained by direct pressurefilling the | | chest cavity with mini laparotomy pads, 10 in and 10 out.There was still some oozing | | diffusely from the chest wall, but no discretebleeding areas. Three chest tubes were | | placed, anterior and posteriorapical 32-Vietnamese and a right angle 32-Vietnamese. These were | | secured to skinwith 2-0 nylon stitches. The patient was taken intubated to the | | ICU.Please note that the 8-Vietnamese ET tube was changed back to his tracheostomytube. | | Findings:Mr. Clay Osorio had a deloculation/decortication done thoracoscopically.He | | had an old retained hemothorax removed and a fibrous peel on his upper,middle, and lower | | lobe removed. He had a 95% re-expansion of his lung withthis. He did have some | | diffuse oozing from his chest wall, which waslargely controlled with laparotomy pad | | packing. Piero Garduno M.D.[place] / [id number] / [id number] / [id number] / T: | | 04/29/2010 | |Procedure: | |Mr. Osorio was brought to the operating room suite. General endotracheal | |anesthesia was induced. A tracheostomy tube was already in place. This | |was switched out to an 8.0 ET tube. Single lung ventilation was | |established using a bronchial sylvie. The patient was positioned in the | |left lateral decubitus position. The right chest was prepped and draped. | |Two thoracoscopy port sites were ultimately made, one at the anterior | |axillary line at approximately seventh interspace, one at the anterior | |axillary line at approximately fifth interspace. Through these, the chest | |was evacuated of approximately 1 L of fluid. This was largely serous, some | |sanguineous. Deloculation was then performed. The lung was freed up from | |the chest wall posteriorly to the hilum apically to approximately the | |second to third rib, coming posteriorly, inferiorly to the diaphragm and | |inferior pulmonary ligament, and anteriorly anterior to the mediastinum. | |The lung was left attached to the mediastinum and to the area in the | |vicinity of the azygos vein, secondary to this being the area of scar | |tissue and possible injury from caval catheter. This was also an area of | |very dense adhesions. | | | | | |The middle, lower, and the lower part of the upper lobe were found to be | |contained in a rind. This was removed using a decortication using | |decortication curettes. The lung was 95% freed up and re-expanded to | |fill the entire chest cavity. Hemostasis was obtained by direct pressure | |filling the chest cavity with mini laparotomy pads, 10 in and 10 out. | |There was still some oozing diffusely from the chest wall, but no discrete | |bleeding areas. Three chest tubes were placed, anterior and posterior | |apical 32-Vietnamese and a right angle 32-Vietnamese. These were secured to skin | |with 2-0 nylon stitches. The patient was taken intubated to the ICU. | |Please note that the 8-Vietnamese ET tube was changed back to his tracheostomy | |tube. | | | | | |Findings: | |Mr. Clay Osorio had a deloculation/decortication done thoracoscopically. | |He had an old retained hemothorax removed and a fibrous peel on his upper, | |middle, and lower lobe removed. He had a 95% re-expansion of his lung with | |this. He did have some diffuse oozing from his chest wall, which was | |largely controlled with laparotomy pad packing. | | | | | | | | | |Piero Garduno M.D. | |PS / HS | |[id number] / [id number] / [id number] / | | | | | | | | | | | | | | | | | | | | | + + documented in this encounter Visit Diagnoses Not on filedocumented in this encounter"
--- OUTSIDE RECORDS SUMMARY | ~2019-01-19 | XMS | Clinical Summary ---
Demographics + + + | Address | [address] | | | [place] [address] | + + + | Home Phone | | + + + | Preferred Language | Unknown | + + + | Marital Status | | + + + | Mandaen Affiliation | 1077 | + + + | Race | Unknown | + + + | Ethnic Group | Unknown | + + + Author + + + | Author | [facility] | | | and [place] | + + + | Organization | [facility] | | | and [...] [place] | | | | | [address] | | + + + + + Care Team Providers + +------+ + | Care Sales Representative [employer] Name | Role | Phone | + [...] + +---+ + + | Overview: JOLANTA [id number] Decision | + + + +---+ | [...] Coordination | | 2019 | | | Secretary To Board Of Commissioners | (Appointment) | +--------+ + + + [...] | | | | [address] [facility] | | | | | | [address] | | | | | | | [...] +--------+ +---------+--------+ | MEDICARE | MEDICA | [id number] | 03/21/19 | [phone] | | Medica | | | RE | | 12-Pre | 5 | | re | | | PART A | | sent | | | | | | AND B | | | | | | + +--------+ +--------+ +---------+--------+ | GEHA | GEHA | [id number] | 03/21/19 | [phone] | | Indemn | | | MDCR | | 10-Pre | 6 | | ity | | | SUPPL | | sent | | | | + +--------+ +--------+ +---------+--------+ | MEDICARE | MEDICA | [id number] | 03/21/19 | [phone] | | Medica | | | RE | | 12-Pre | 5 | | re | | | PART A | | sent | | | | | | AND B | | | | | | + +--------+ +--------+ +---------+--------+ | GEHA | GEHA | [id number] | 01/09/ | [phone] | | Indemn [...] scar | | | 2 (Home) | [address] | + +--------+ +--------+ + + | Clay Osorio | Person | Self | [birth year] | [address] | | | al/Fam | | 1946 | [phone] | [place] | | | scar | | | 2 ([place]) | [address] | + +--------+ +--------+ + + Advance Directives Patient has advance care planning documents on file. For more information, please contact:[facility] and [facility] [place] [address]
--- OUTSIDE RECORDS SUMMARY | ~2019-01-19 | XMS | Encounter Summary ---
Demographics + + + | Address | [address] | | | [place] [address] | + + + | Home Phone [...] Author + + + | Author | [facility] | + + + | Organization | [facility] | + + + | Address | Unknown | + + + | Phone | Unavailable | + + + Support + + + + + | Name | Relationship | Address | Phone | + + + + + | Marnie Osorio | ECON | [address] | | | | | [place], [place] | | | | | [address] | | + + + + + | Zoey Marie | ECON | Unknown | | + + + + + | Dionne Alba | ECON | Unknown | | + + + + + Care Team Providers + +------+ + | Care Monotypist Name | Role | Phone | + +------+ + | iVk Kraft DO | PCP | | + +------+ + Encounter Details +--------+ + + + + | Date | Type | Department | Care Team | Description | +--------+ + + + + | 04/05/ | Results | LAB REFERRED TESTS | Other, Faculty | | | 2010 | Only | [address] | [phone] | | | | | [address] | | | | | | [place], [place] | | | | | | [address] | | | +--------+ + + + [...] + | EJECTION FRACTION | Routin | 04/05/2010 | | Results for this | | | e | 3:06 PM | | procedure are in the | | | | PST | | results section. | + +--------+ + + + documented in this encounter Results EJECTION FRACTION (04/05/2010 3:06 PM PST) + + + + + + | Component | Value | Ref Range | Performed | Pathologist | | | | | At | Signature | + + + + + + | EJECTION | 70 - 75%Comment: EF | | [facility] | | | FRACTION | Recorded from | | OF | | | | Transesophageal | | CARDIOLOGY | | | | Echocardiagram | | | | + + + + + + + + | Specimen | + + | | + + + + + + + | Performing | Address | City/State/Zipcode | Phone Number | | Organization | | | | + + + + + | [facility] | [address] | [place], [place] | | | CARDIOLOGY | [facility] | [address] | | + + + + + documented in this encounter Visit Diagnoses Not on filedocumented in this encounter"
--- OUTSIDE RECORDS SUMMARY | ~2019-01-19 | XMS | Encounter Summary ---
Demographics + + + | Address | [address] | | | [place] [address] | + + + | Home Phone | | + + + | Preferred Language | Unknown | + + + | Marital Status | | + + + | Mandaeism Affiliation | MET | + + + | Race | White | + + + | Ethnic Group | Not or | + + + Author + + + | Author | [facility] | + + + | Organization | [facility] | + + + | Address | Unknown | + + + | Phone | Unavailable | + + + Support + + + + + | Name | Relationship | Address | Phone | + + + + + | Marnie Osorio | ECON | [address] | | | | | [place], [place] | | | | | [address] | | + + + + + | Zoey Marie | ECON | Unknown | | + + + + + | Dionne Alba | ECON | Unknown | | + + + + + Care Team Providers + +------+ + | Care Environmental Conservation Professor Name | Role | Phone | + +------+ + | Vik Kraft DO | PCP | | + +------+ + Encounter Details +--------+------+ + + + | Date | Type | Department | Care Team | Description | +--------+------+ + + + | 05/11/ | Lab | Laboratory, | | S/P AVR (aortic | | 2012 | | Specimen Collection | | valve replacement) | | | | at [facility] [address] | | | | | | [address] | | | | | | [place], | | | | | | [place] [address] | | | | | | [phone] | | | +--------+------+ + + + Social History + +-------+ [...] +--------+ + + + | INR | Routin | 05/11/2012 | S/P AVR (aortic | Results for this | | | e | 2:22 PM | valve replacement) | procedure are in the | | | | PST | | results section. | + +--------+ + + + documented in this encounter Results INR (05/11/2012 2:22 PM PST) + + + + + + | Component | Value | Ref Range | Performed | Pathologist | | | | | At | Signature | + + + + + + | INR | 2.01 (H) | 0.90 - 1.20 INR | [facility] | | | | | | LABORATORY | | | | | | SERVICES, | | | | | | CORE | | + + + + + + + + | Specimen | + + | Blood - Blood | + + + + + | Narrative | Performed At | + + + | INR Therapeutic ranges for full anticoagulation: INR for | [facility] | | Venous Thromboembolism (2.0 - 3.0) INR INR for | LABORATORY | | most patients with mech. valves (2.5 - 3.5) INR | [facility] | + + + + + + + + | Performing | Address | City/State/Zipcode | Phone Number | | Organization | | | | + + + + + | [facility] | [address] | [place] [address] | | | [place] | [address] | | | + + + + + documented in this encounter Visit Diagnoses + + | Diagnosis | + + | S/P AVR (aortic valve replacement) Heart valve replaced by other means | + + documented in this encounter"
--- OUTSIDE RECORDS SUMMARY | ~2019-01-19 | XMS | Encounter Summary ---
Demographics + + + | Address | [address] | | | [place] [address] | + + + | Home Phone | | + + + | Preferred Language | Unknown | + + + | Marital Status | | + + + | Hinduism Affiliation | MET | + + + | Race | White | + + + | Ethnic Group | Not or | + + + Author + + + | Author | [facility] | + + + | Organization | [facility] | + + + | Address | Unknown | + + + | Phone | Unavailable | + + + Support + + + + + | Name | Relationship | Address | Phone | + + + + + | Marnie Osorio | ECON | [address] | | | | | [place], [place] | | | | | [address] | | + + + + + | Zoey Marie | ECON | Unknown | | + + + + + | Dionne Alba | ECON | Unknown | | + + + + + Care Team Providers + +------+ + | Care Liner Replacer Name | Role | Phone | + [...] [address] | | | | | | [place], [place] | | | | | | [address] | | | +--------+ + + + [...]
--- OUTSIDE RECORDS SUMMARY | ~2019-01-19 | XMS | Encounter Summary ---
Demographics + + + | Address | [address] | | | [place] [address] | + + + | Home Phone | | + + + | Preferred Language | Unknown | + + + | Marital Status | | + + + | Rastafarian Affiliation | MET | + + + | Race | White | + + + | Ethnic Group | Not or | + + + Author + + + | Author | [facility] | + + + | Organization | [facility] | + + + | Address | Unknown | + + + | Phone | Unavailable | + + + Support + + + + + | Name | Relationship | Address | Phone | + + + + + | Marnie Osorio | ECON | [address] | | | | | [place], [place] | | | | | [address] | | + + + + + | Zoey Marie | ECON | Unknown | | + + + + + | Dionne Alba | ECON | Unknown | | + + + + + Care Team Providers + +------+ + | Care Head Control Clerk Name | Role | Phone | + [...] | | | | (aortic | [address] | [address] | | | | | valve | [address] | Mailcode: | | | | | replacement) | [address] | [facility] | | | | | Procedures | [place], [place] | for [facility] | | | | | X-RAY | [address] | and Healing, | | | | | ESOPHAGRAM | Phone: | [address], | | | | | | [phone] | 3rd Floor | | | | | | Fax: | [place], [place] | | | | | | [phone] | [address] | | | | | | | Phone: | | | | | | | [phone] | | | | | | | Fax: | | | | | | | [phone] | +--------+--------+ + + + + Encounter Details +--------+ + + + + | Date | Type | Department | Care Team | Description | +--------+ + + + + | 08/13/ | Hospital | Radiology/Imaging | | | | 2010 | Encounter | Lab at [facility] [address] | | | | | | [address] Mailcode: | | | | | | [facility] | | | | | | Health and Healing, | | | | | | Building , [facility] | | | | | | Floor [place], [place] | | | | | | [address] | | | | | | [phone] | | | +--------+ + + + [...]
--- OUTSIDE RECORDS SUMMARY | ~2019-01-19 | XMS | Encounter Summary ---
Demographics + + + | Address | [address] | | | [place] [address] | + + + | Home Phone | | + + + | Preferred Language | Unknown | + + + | Marital Status | | + + + | Baptist Affiliation | 1077 | + + + | Race | Unknown | + + + | Ethnic Group | Unknown | + + + Author + + + | Author | [facility] | | | and [place] | + + + | Organization | [facility] | | | [...] [place] | | | | | [address] | | + + + + + Care Team Providers + +------+ + | Care Tuck Pointer Helper Name | Role | Phone | + +------+ + | Jesus Damon MD | PCP | | + +------+ + Encounter Details +--------+---------+ + + + | Date | Type | Department | Care Team | Description | +--------+---------+ + + + | 01/09/ | Office | [facility] | Kelly BurgessianDO | Osteomyelitis of | | 2019 | Visit | INFECTIOUS DISEASE | [address] | sternum (HCC) | | | | [address] | [place] [address] | (Primary Dx) | | | | [place], [place] | [phone] | | | | | [address] | | | | | | [phone] | | | +--------+---------+ + + + [...] | | | | | [address] [place], [place] | | | | | | [address] | | | | | | | | +--------+---------+ + + + documented as of this encounter Visit Diagnoses + + | Diagnosis | + + | 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
--- OUTSIDE RECORDS SUMMARY | ~2019-01-19 | XMS | Encounter Summary ---
Demographics + + + | Address | [address] | | | [place] [address] | + + + | Home Phone | | + + + | Preferred Language | Unknown | + + + | Marital Status | | + + + | Tenriism Affiliation | MET | + + + | Race | White | + + + | Ethnic Group | Not or | + + + Author + + + | Author | [facility] | + + + | Organization | [facility] | + + + | Address | Unknown | + + + | Phone | Unavailable | + + + Support + + + + + | Name | Relationship | Address | Phone | + + + + + | Marnie Morin | ECON | [address] | | | | | [place], [place] | | | | | [address] | | + + + + + | Zoey Marie | ECON | Unknown | | + + + + + | Dionne Alba | ECON | Unknown | | + + + + + Care Team Providers + +------+ + | Care Executive Relations Specialist Name | Role | Phone | + [...] EPICARDIAL PACING | | 2011 | | [facility] | MD | WIRE REMOVAL flouro | | | | Admitting Desk | | used | | | | Located on the 9th | | | | | | floor [address] | | | | | | [address] | | | | | | [place], [place] | | | | | | [address] | | | +--------+---------+ + + + [...] Course: Mr. Clay Morin was admitted to [facility] on 06/01/2011 for heparin bridge (on [...] Care Coordination rounds held. Disciplines attending included: Detective Bureau Chief,, Rope Rider,, Bedside RN,, consultant technology,, Physician, Dr. Winn, Physician's Emergency Dept Tech,, Physical Therapist,, Roof Mechanic,, Pharmacist PERTINENT FINDINGS Notes: Pt will DC home when IRN >1.8; with follow up from PCP Dr. Kraft for anti-coag upon DC. Electronically signed by:Elyse An Position:Detective Bureau Chief Pager ID:[phone] Electronically signed on:2011-06-03 1215Electronically signed by Elyse [...] INR >1.8 (Electronically Signed) Piero Goel PA-C [facility] Cardiac Surgery Ceci Handy PA-C - 2011 4:37 PM PDTPost-procedure note: Pt underwent small subxiphoid incision. Two pacing wires were removed. No complication. Pt to recover in PACU then back to 11K. Restart coumadin tonight. Start Heparin gtt tomorrow @ 0900. CECI ARAYA PA-C Division of Cardiothoracic Surgery [facility] [place] Mail Code L353 [address] [facility] [address] Tiburcio Panda MD - 06/01/2011 5:58 [...] Electronically signed Tiburcio Chung MD, FACS, FACC Child Specialist, Department of Surgery Clinical Director, Adult Cardiac Surgery Co-Director, Multidisciplinary Heart Valve Clinic [facility] | [email or web address] ambriz Martinez Nagy 0 06/01/2011 4:07 [...] 66y/o M admitted for heparin bridge (has [facility] AV/MV) prior to retained epic ardial pacing [...] the living situation and support system included: [facility] Spouse or Domestic Partner Kai [phone] FUNCTIONAL STATUS Patient's baseline functional status prior [...] that may arise. Electronically signed by:Elyse An Position:Detective Bureau Chief Pager ID:[phone] Electronically signed on:2011-06-01 1148Electronically signed by Elyse [...] 1.13Comment: | 0.90 - 1.20 INR | [facility] | | | | INR Therapeutic [...] | + + + + + | [facility] DEPARTMENT OF | [address] | [place] [address] | | | PATHOLOGY | [address] [...] | + + + + + | [facility] | [address] | [place] [address] | | | PATHOLOGY | [address] [...] DEPARTMENT OF | [address] | [place] [address] | | | PATHOLOGY | [address] [...] HEPARIN, | < 0.10Comment: | U/mL | [facility] | | | STD LMW | Heparin, [...] | + + + + + | [facility] | [address] | [place] [address] | | | PATHOLOGY | [address] [...] | | + +---------+ + + | [facility] DEPARTMENT OF | | | | [...] 1.13Comment: | 0.90 - 1.20 INR | [facility] | | | | INR Therapeutic [...] | + + + + + | [facility] | [address] | [place] [address] | | | PATHOLOGY | [address] [...] | + + + + + | [facility] | [address] | [place] [address] | | | PATHOLOGY | [address] [...] + + + + | PRODUCT | [id number] | | [facility] | | | UNIT [...] + + + + | BLOOD | [id number] | | [facility] | | | PRODUCT [...] | + + + + + | [facility] DEPARTMENT OF | [address] | [place] [address] | | | PATHOLOGY | [address] [...] [facility] DEPARTMENT | [address] | [place] [address] | | | PATHOLOGY | [address] [...] | + + + + + | [facility] | [address] | [place] [address] | | | PATHOLOGY | [address] [...] | | + +---------+ + + | [facility] DEPARTMENT OF | | | | [...] DEPARTMENT OF | [address] | [place] [address] | | | PATHOLOGY | [address] [...] | + + + + + | [facility] DEPARTMENT | [address] | [place] [address] | | | PATHOLOGY | [address] [...] | HEPARIN, | 0.48Comment: | U/mL | [facility] | | | STD LMW | [...] | + + + + + | [facility] | [address] | [place] [address] | | | PATHOLOGY | [address] [...] view image for the detailed interpretation from [employer] results. | CARDIOLOGY | + + + + + + + + | Performing | Address | City/State/Zipcode | Phone Number | | Organization | | | | + + + + + | [facility] DEPT OF | [address] | [place], [place] | | | CARDIOLOGY | [address] | [address] | | + + + + + [...] | + + + + + | [facility] DEPARTMENT OF | [address] | [place] [address] | | | PATHOLOGY | [address] | | | + + + + + INR (05/31/2011 8:49 PM PDT) + + + + + + | Component | Value | Ref Range | Performed | Pathologist | | | | | At | Signature | + + + + + + | INR | 1.14Comment: | 0.90 - 1.20 INR | [facility] | | | | INR Therapeutic [...] | + + + + + | [facility] | [address] | [place] [address] | | | PATHOLOGY | [address] [...] | + + + + + | [facility] | [address] | [place] [address] | | | PATHOLOGY | [address] [...] | + + + + + | [facility] | [address] | [place] [address] | | | PATHOLOGY | [address] [...]
--- OUTSIDE RECORDS SUMMARY | ~2019-01-19 | XMS | Encounter Summary ---
Demographics + + + | Address | [address] | | | [place] [address] | + + + | Home Phone | | + + + | Preferred Language | Unknown | + + + | Marital Status | | + + + | Uatsdin Affiliation | MET | + + + | Race | White | + + + | Ethnic Group | Not or | + + + Author + + + | Author | [facility] | + + + | Organization | [facility] | + + + | Address | Unknown | + + + | Phone | Unavailable | + + + Support + + + + + | Name | Relationship | Address | Phone | + + + + + | Marnie Osorio | ECON | [address] | | | | | [place], [place] | | | | | [address] | | + + + + + | Zoey Marie | ECON | Unknown | | + + + + + | Dionne Alba | ECON | Unknown | | + + + + + Care Team Providers + +------+ + | Care Basic Combatant Swimmer Name | Role | Phone | + +------+ + | Vik Kraft DO | PCP | | + +------+ + Encounter Details +--------+ + + + + | Date | Type | Department | Care Team | Description | +--------+ + + + + | 04/05/ | Results | LAB REFERRED TESTS | Other, Faculty | | | 2010 | Only | [address] [facility] | [phone] | | | | | [address] | | | | | | [place], [place] | | | | | | [address] | | | +--------+ + + + [...] DEPT OF | [address] | [place], [place] | | | CARDIOLOGY | [facility] | [address] | | + + + + + documented in this encounter Visit Diagnoses Not on filedocumented in this encounter"
--- OUTSIDE RECORDS SUMMARY | ~2019-01-19 | XMS | Encounter Summary ---
Demographics + + + | Address | [address] | | | [place] [address] | + + + | Home Phone | | + + + | Preferred Language | Unknown | + + + | Marital Status | | + + + | Moravian Affiliation | MET | + + + | Race | White | + + + | Ethnic Group | Not or | + + + Author + + + | Author | [facility] | + + + | Organization | [facility] | + + + | Address | Unknown | + + + | Phone | Unavailable | + + + Support + + + + + | Name | Relationship | Address | Phone | + + + + + | Marnie Osorio | ECON | [address] | | | | | [place], [place] | | | | | [address] | | + + + + + | Zoey Marie | ECON | Unknown | | + + + + + | Dionne Alba | ECON | Unknown | | + + + + + Care Team Providers + +------+ + | Care Amr Physician Name | Role | Phone | + +------+ + | Vik Kraft DO | PCP | | + +------+ + Reason for Visit + + + | Reason | Comments | + + + | Feeding Tube Clogged | | + + + | Tachycardia | | + + + Encounter Details +--------+ + + + + | Date | Type | Department | Care Team | Description | +--------+ + + + + | 11/12/ | Emergency | [facility] Emergency | | | | 2010 | | Department [address] | | | | | | [facility] | | | | | | [facility] | | | | | | [place], [place] | | | | | | [address] | | | | | | [phone] | | | +--------+ + + + [...]
--- OUTSIDE RECORDS SUMMARY | ~2019-01-19 | XMS | Encounter Summary ---
Demographics + + + | Address | [address] | | | [place] [address] | + + + | Home Phone | | + + + | Preferred Language | Unknown | + + + | Marital Status | | + + + | Confucianist Affiliation | MET | + + + | Race | White | + + + | Ethnic Group | Not or | + + + Author + + + | Author | [facility] | + + + | Organization | [facility] | + + + | Address | Unknown | + + + | Phone | Unavailable | + + + Support + + + + + | Name | Relationship | Address | Phone | + + + + + | Marnie Osorio | ECON | [address] | | | | | [place], [place] | | | | | [address] | | + + + + + | Zoey Marie | ECON | Unknown | | + + + + + | Dionne Alba | ECON | Unknown | | + + + + + Care Team Providers + +------+ + | Care Sales Hunter Name | Role | Phone | + +------+ + | Vik Kraft DO | PCP | | + +------+ + Encounter Details +--------+ + + + + | Date | Type | Department | Care Team | Description | +--------+ + + + + | 04/08/ | Results | LAB REFERRED TESTS | Other, Faculty | | | 2010 | Only | [address] [facility] | [phone] | | | | | [address] | | | | | | [place], [place] | | | | | | [address] | | | +--------+ + + + [...] + | EJECTION FRACTION | Routin | 04/08/2010 | | Results for this | | | e | 4:40 PM | | procedure are in the | | | | PST | | results section. | + +--------+ + + + documented in this encounter Results EJECTION FRACTION (04/08/2010 4:40 PM PST) + + + + + + | Component | Value | Ref Range | Performed | Pathologist | | | | | At | Signature | + + + + + + | EJECTION | > 75%Comment: EF | | [facility] DEPT | [...] + + | [facility] | [address] | [place], [place] | | | CARDIOLOGY | [facility] | [address] | | + + + + + documented in this encounter Visit Diagnoses Not on filedocumented in this encounter"
--- OUTSIDE RECORDS SUMMARY | ~2019-01-19 | XMS | Encounter Summary ---
Demographics + + + | Address | [address] | | | [place] [address] | + + + | Home Phone | | + + + | Preferred Language | Unknown | + + + | Marital Status | | + + + | Muslim Affiliation | MET | + + + | Race | White | + + + | Ethnic Group | Not or | + + + Author + + + | Author | [facility] | + + + | Organization | [facility] | + + + | Address | Unknown | + + + | Phone | Unavailable | + + + Support + + + + + | Name | Relationship | Address | Phone | + + + + + | Marnie Osorio | ECON | [address] | | | | | [place], [place] | | | | | [address] | | + + + + + | Zoey Marie | ECON | Unknown | | + + + + + | Dionne Alba | ECON | Unknown | | + + + + + Care Team Providers + +------+ + | Care Digital Imager Name | Role | Phone | + +------+ + | Vik Kraft DO | PCP | | + +------+ + Encounter Details +--------+ + + + + | Date | Type | Department | Care Team | Description | +--------+ + + + + | 05/31/ | Results | LAB REFERRED TESTS | Other, Faculty | | | 2011 | Only | [address] [facility] | [phone] | | | | | [address] | | | | | | [place], [place] | | | | | | [address] | | | +--------+ + + + [...] DEPT OF | [address] | [place], [place] | | | CARDIOLOGY | [address] | [address] | | + + + + + documented in this encounter Visit Diagnoses Not on filedocumented in this encounter"
--- OUTSIDE RECORDS SUMMARY | ~2019-01-19 | XMS | Encounter Summary ---
Demographics + + + | Address | [address] | | | [place] [address] | + + + | Home Phone [...] [place], [place] | | | | | [address] | | + + + + + | Zoey Marie | ECON | Unknown | | + + + + + | Dionne Alba | ECON | Unknown | | + + + + + Care Team Providers + +------+ + | Care Water Supervisor Name | Role | Phone | [...] | | | 2011 | Event | [facility] | [address] [facility] | | | | | Admitting Desk | Silvia Vizcarra [facility] | | | | | Located on the | [place] [address] | | | | | floor [address] [facility] | [phone] | | | | | [address] | | | | | | [place], [place] | Marielle Kaufman MD | | | | | [address] | [facility] | | | | | | Group [address] | | | | | | [address] | | | | | | [place] [address] | | | | | | [phone] | | | | | | | [...] 0720 | Asuncion Madrigal RN | Seth Montesinos | | Incisi | | | MARLINE [...]
--- OUTSIDE RECORDS SUMMARY | ~2019-01-19 | XMS | Encounter Summary ---
Demographics + + + | Address | [address] | | | [place] [address] | + + + | Home Phone | | + + + | Preferred Language | Unknown | + + + | Marital Status | | + + + | Confucianism Affiliation | MET | + + + | Race | White | + + + | Ethnic Group | Not or | + + + Author + + + | Author | [facility] | + + + | Organization | [facility] | + + + | Address | Unknown | + + + | Phone | Unavailable | + + + Support + + + + + | Name | Relationship | Address | Phone | + + + + + | Marnie Osorio | ECON | [address] | | | | | [place], [place] | | | | | [address] | | + + + + + | Zoey Marie | ECON | Unknown | | + + + + + | Dionne Alba | ECON | Unknown | | + + + + + Care Team Providers + +------+ + | Care Cutting And Splicing Supervisor Name | Role | Phone | [...] | | | | Transcribed | [facility] | [facility] | | | | | Rd Mailcode: L[address] | [place], [place] | | | | | Physician's | [address] | | | | | [place], | [phone] | | | | | [place] [address] | | | | | | [phone] | | | +--------+ + + + [...] Performed At | + + + | [id number] | | | [id number] [phone] | | | [address] [id number] | | | Date: 04/28/2010 Attending Surgeon: | | | Piero Garduno M.D. It Training Specialist(s): | | | Darnell Smith M.D. | [...] | | placed, anterior and posterior apical 32-Cypriot and a right angle | | | 32-Cypriot. These were secured to skin with 2-0 nylon stitches. | | | The patient was taken intubated to the ICU. Please note that the | | | 8-Cypriot ET tube was changed back to his [...] M.D. PS / HS | | | [id number] / [id number] / [id number] / | | | | | + + + + + | Procedure Note | + + | Piero Garduno MD - 04/28/2010 12:[address] [facility] [id number] | | [phone] [id number] | | [id number] Date: 04/28/2010 Attending Surgeon: Piero | | Kelechi Garduno It Training Specialist(s): Darnell Smith M.D. | | Giselle Lucio [...] were | | placed, anterior and posteriorapical 32-Cypriot and a right angle 32-Cypriot. These were | | secured to skinwith 2-0 nylon stitches. The patient was taken intubated to the | | ICU.Please note that the 8-Cypriot ET tube was changed back to his [...] | | packing. Piero Garduno M.D.[place] / [id number] / [id number] / [id number] / T: | | 04/29/2010 | |Procedure: [...] were placed, anterior and posterior | |apical 32-Cypriot and a right angle 32-Cypriot. These were secured to skin | |with 2-0 nylon stitches. The patient was taken intubated to the ICU. | |Please note that the 8-Cypriot ET tube was changed back to his [...] Garduno M.D. | |PS / HS | |[id number] / [id number] / [id number] / | | | | | | | | | | | | | | | | | | | | | + + documented in this encounter Visit Diagnoses Not on filedocumented in this encounter"
--- OUTSIDE RECORDS SUMMARY | ~2019-01-19 | XMS | Encounter Summary ---
Demographics + + + | Address | [address] | | | [place] [address] | + + + | Home Phone | | + + + | Preferred Language | Unknown | + + + | Marital Status | | + + + | Mandaeism Affiliation | MET | + + + | Race | White | + + + | Ethnic Group | Not or | + + + Author + + + | Author | [facility] | + + + | Organization | [facility] | + + + | Address | Unknown | + + + | Phone | Unavailable | + + + Support + + + + + | Name | Relationship | Address | Phone | + + + + + | Marnie Osorio | ECON | [address] | | | | | [place], [place] | | | | | [address] | | + + + + + | Zoey Marie | JAZZMINE | Unknown | | + + + + + | Dionne Alba | ECON | Unknown | | + + + + + Care Team Providers + +------+ + | Care Spice Mixer Name | Role | Phone | + [...] | | | | valve | DO [facility] | [address] [facility] | | | | | disorders | [place] | [address] | | | | | | CARDIOLOGY | [address] [place], | | | | | | [address] | [place] | | | | | | [place] | [address] | | | | | | [address]IVE [address] | | | | | | | [address] | | | | | | | [place] | | | | | | | [address] | | | | | | | Phone: | | | | | | | [phone] | | | | | | | Fax: | | | | | | | [phone] | | +--------+--------+ + + + + [...] | | | | | | [place], | | | | | | [place] [address] | | | | | | [phone] | | | +--------+---------+ + + + [...] [facility] | [address] | [place] [address] | | | DAISY AQU[address] | SAMANTHA [...]
--- OUTSIDE RECORDS SUMMARY | ~2019-01-19 | XMS | Encounter Summary ---
Demographics + + + | Address | [address] | | | [place] [address] | + + + | Home Phone | | + + + | Preferred Language | Unknown | + + + | Marital Status | | + + + | Zoroastrian Affiliation | MET | + + + | Race | White | + + + | Ethnic Group | Not or | + + + Author + + + | Author | [facility] | + + + | Organization | [facility] | + + + | Address | Unknown | + + + | Phone | Unavailable | + + + Support + + + + + | Name | Relationship | Address | Phone | + + + + + | Marnie Osorio | ECON | [address] | | | | | [place], [place] | | | | | [address] | | + + + + + | Zoey Marie | ECON | Unknown | | + + + + + | Dionne Alba | ECON | Unknown | | + + + + + Care Team Providers + +------+ + | Care Sde Name | Role | Phone | + [...] | 2010 | Only | [address] [facility] | [phone] | | | | | [address] | | | | | | [place], [place] | | | | | | [address] | | | +--------+ + + + [...] + + | [facility] | [address] | [place], [place] | | | CARDIOLOGY | [facility] | [address] | | + + + + + documented in this encounter Visit Diagnoses Not on filedocumented in this encounter"
--- OUTSIDE RECORDS SUMMARY | ~2019-01-19 | XMS | Encounter Summary ---
Demographics + + + | Address | [address] | | | [place] [address] | + + + | Home Phone | | + + + | Preferred Language | Unknown | + + + | Marital Status | | + + + | Muslim Affiliation | MET | + + + | Race | White | + + + | Ethnic Group | Not or | + + + Author + + + | Author | [facility] | + + + | Organization | [facility] | + + + | Address | Unknown | + + + | Phone | Unavailable | + + + Support + + + + + | Name | Relationship | Address | Phone | + + + + + | Marnie Osorio | ECON | [address] | | | | | [place], [place] | | | | | [address] | | + + + + + | Zoey Marie | ECON | Unknown | | + + + + + | Dionne Alba | ECON | Unknown | | + + + + + Care Team Providers + +------+ + | Care Copy Coordinator Name | Role | Phone | [...] | | | 2011 | Event | [facility] | [address] [facility] | | | | | Admitting Desk | Silvia Vizcarra [facility] | | | | | Located on the | [place] [address] | | | | | floor [address] [facility] | [phone] | | | | | [address] | | | | | | [place], [place] | Marielle Kaufman MD | | | | | [address] | [facility] | | | | | | Group [address] | | | | | | [address] | | | | | | [place] [address] | | | | | | [phone] | | | | | | | [...] Gastri | feeding tube | | MARLINE aZman | | c/Feed | intraoperatively{"Witzel"} | | [...] | | Drains | 7mm CARLTON drain; ACRLTON; Anterior, Left; | | MARLINE Zaman | [...]
--- OUTSIDE RECORDS SUMMARY | ~2019-01-19 | XMS | Encounter Summary ---
Demographics + + + | Address | [address] | | | [place] [address] | + + + | Home Phone | | + + + | Preferred Language | Unknown | + + + | Marital Status | | + + + | Restorationist Affiliation | MET | + + + [...] [place], [place] | | | | | [address] | | + + + + + | Zoey Marie | ECON | Unknown | | + + + + + | Dionne Alba | ECON | Unknown | | + + + + + Care Team Providers + +------+ + | Care Hand Box Coverer Name | Role | Phone | + [...] Duodenal | Cortes Henriquez MD | [address] | | | | | ulcer, | | [address] | | | | | unspecified | | Sil[facility]ra | | | | | as acute or | | Mailcode: | | | | | chronic, | | [facility] | | | | | without | | [place] | | | | | hemorrhage, | | [address] | | | | | perforation, | | [place], | | | | | or | | [place] [address] | | | | | obstruction | | Phone: | | | | | Procedures | | [phone] | | | | | CONSULT TO | | Fax: | | | | | GI PROCEDURE | | [phone] | | | | | UNIT: EGD | | | +--------+--------+ + + + + Encounter Details +--------+ + + + + | Date | Type | Department | Care Team | Description | +--------+ + + + + | 05/08/ | Grief Counsellor | Digestive Health | Cortes Schmitt | Duodenal ulcer | | 2010 | | Center at [facility] [address] | MD Martinez | (Primary Dx) | | | | [address] | | | | | | Mailcode: [place] | | | | | | for Health and | | | | | | [facility] [place] [address] | | | | | | [place], [place] | | | | | | [address] | | | | | | [phone] | | | +--------+ + + + [...]
--- OUTSIDE RECORDS SUMMARY | ~2019-01-19 | XMS | Encounter Summary ---
Demographics + + + | Address | [address] | | | [place] [address] | + + + | Home Phone [...] + + + | Author | [facility] | + + + | Organization | [facility] | + + + | Address | Unknown | + + + | Phone | Unavailable | + + + Support + + + + + | Name | Relationship | Address | Phone | + + + + + | Marnie Morin | ECON | [address] | | | | | [place], [place] | | | | | [address] | | + + + + + | Zoey Marie | ECON | Unknown | | + + + + + | Dionne Alba | ECON | Unknown | | + + + + + Care Team Providers + +------+ + | Care Bellperson Name | Role | Phone | + [...] | | | | MAHAMED Mcgovern | [facility] [address] | | | | | TRANSTHORACI | [address] | [address] | | | | | C | [address] | Samantha Vizcarra | | | | | ECHOCARDIOGR | Samantha Vizcarra | Mailcode: | | | | | AM, ADULT | [place], [place] | [address] | | | | | | [address] | [address] | | | | | | Phone: | Building | | | | | | [phone] | [place], [place] | | | | | | Fax: | [address] | | | | | | [phone] | Phone: | | | | | | | [phone] | +--------+--------+ + + + + Reason [...] + + | 05/30/ | Hospital | [facility] [address] | Tiburcio Chung, | | | 2011 - | Encounter | [address] | | | | | | [id number] [facility] | | | | 06/03/ | | [facility], | | | | 2011 | | [place] [address] | | | | | | [phone] | | | +--------+ + + + [...] Course: Mr. Clay Morin was admitted to [facility] on 06/01/2011 for heparin bridge [...] Care Coordination rounds held. Disciplines attending included: Snow Ranger,, Cake Stripper,, Bedside RN,, general surgeon,, Physician, Dr. Winn, Physician's J2Ee Architect,, Physical Therapist,, Mate First,, Pharmacist PERTINENT FINDINGS Notes: Pt will DC home when IRN >1.8; with follow up from PCP Dr. Kraft for anti-coag upon DC. Electronically signed by:Elyse An Position:Snow Ranger Pager ID:[phone] Electronically signed on:2011-06-03 1215Electronically signed by Elyse [...] INR >1.8 (Electronically Signed) Piero Goel PA-C [facility] Cardiac Surgery Ceci Handy PA-C - 2011 4:37 PM PDTPost-procedure note: Pt underwent small subxiphoid incision. Two pacing wires were removed. No complication. Pt to recover in PACU then back to 11K. Restart coumadin tonight. Start Heparin gtt tomorrow @ 0900. CECI ARAYA PA-C Division of Cardiothoracic Surgery [facility] Mail Code L353 [address] [facility] [address] Tiburcio Panda MD - 06/01/2011 5:58 [...] Electronically signed Tiburcio Chung MD, FACS, FACC Platen Drier Operator, Department of Surgery Clinical Director, Adult Cardiac Surgery Co-Director, Multidisciplinary Heart Valve Clinic [facility] | [email or web address] eterson, Thuy L - 0 06/01/2011 4:07 [...] 66y/o M admitted for heparin bridge ([facility]) prior to retained epic ardial [...] included: Wtih Spouse or Domestic Partner Geramauricio [phone] FUNCTIONAL STATUS Patient's baseline functional status prior [...] that may arise. Electronically signed by:Elyse An Position:Snow Ranger Pager ID:[phone] Electronically signed on:2011-06-01 1148Electronically signed by Elyse [...] | + + + + + | [facility] | [address] | [place] [address] | | | PATHOLOGY | [address] [...] | + + + + + | [facility] | [address] | [place] [address] | | | PATHOLOGY | [address] [...] | + + + + + | [facility] | [address] | [place] [address] | | | PATHOLOGY | [address] [...] | + + + + + | [facility] | [address] | [place] [address] | | | PATHOLOGY | [address] [...] | + + + + + | [facility] DEPARTMENT OF | [address] | [place] [address] | | | PATHOLOGY | [address] [...] | + + + + + | [facility] | [address] | [place] [address] | | | PATHOLOGY | [address] [...] + + + + | PRODUCT | [id number] | | [facility] | | | UNIT [...] + + + + | BLOOD | [id number] | | [facility] | | | PRODUCT [...] | + + + + + | [facility] | [address] | [place] [address] | | | PATHOLOGY | [address] [...] [place] DEPARTMENT | [address] | [place] [address] | | | PATHOLOGY | [address] [...] | + + + + + | [facility] | [address] | [place] [address] | | | PATHOLOGY | [address] [...] DEPARTMENT OF | [address] | [place] [address] | | | PATHOLOGY | [address] [...] | + + + + + | [facility] DEPARTMENT OF | [address] | [place] [address] | | | PATHOLOGY | [address] [...] | + + + + + | [facility] | [address] | [place] [address] | | | PATHOLOGY | [address] [...] view image for the detailed interpretation from [employer]Q results. | CARDIOLOGY | + + + + + + + + | Performing | Address | City/State/Zipcode | Phone Number | | Organization | | | | + + + + + | [facility] DEPT OF | [address] | [place], [place] | | | CARDIOLOGY | [address] | [address] | | + + + + + [...] + + | [facility] DEPARTMENT OF | [address] | [place] [address] | | | PATHOLOGY | [address] [...] | + + + + + | [facility] | [address] | [place] [address] | | | PATHOLOGY | [address] [...] | + + + + + | [facility] | [address] | [place] [address] | | | PATHOLOGY | [address] [...] | + + + + + | [facility] | [address] | [place] [address] | | | PATHOLOGY | [address] [...]
--- OUTSIDE RECORDS SUMMARY | ~2019-01-19 | XMS | Encounter Summary ---
Demographics + + + | Address | [address] | | | [place] [address] | + + + | Home Phone [...] + + + | Author | [facility] | + + + | Organization | [facility] | + + [...] [place], [place] | | | | | [address] | | + + + + + | Zoey Marie | ECON | Unknown | | + + + + + | Dionne Alba | ECON | Unknown | | + + + + + Care Team Providers + +------+ + | Care Metallography Teacher Name | Role | Phone | + +------+ + | Vik Karft DO | PCP | | + +------+ [...] | | | | MAHAMED Mcgovern | [facility] [address] | | | | | TRANSTHORACI | [address] | [address] | | | | | C | [address] | Samantha Vizcarra | | | | | ECHOCARDIOGR | Samantha Vizcarra | Mailcode: | | | | | AM, ADULT | [place], [place] | [address] | | | | | | [address] | [address] | | | | | | Phone: | Building | | | | | | [phone] | [place], [place] | | | | | | Fax: | [address] | | | | | | [phone] | Phone: | | | | | | | [phone] | +--------+--------+ + + + + Reason [...] + + | 05/30/ | Hospital | [facility] [address] | Tiburcio Chung, | | | 2011 - | Encounter | [address] | | | | | | [id number] [facility] | | | | 06/03/ | | [facility], | | | | 2011 | | [place] [address] | | | | | | [phone] | | | +--------+ + + + [...] Course: Mr. Clay Morin was admitted to [facility] on 06/01/2011 for heparin bridge (on warfarin [...] Care Coordination rounds held. Disciplines attending included: Central Service Tech,, Mothercraft Nurse,, Bedside RN,, valet service attendant,, Physician, Dr. Winn, Physician's Pipeman,, Physical Therapist,, Plate Shear Operator,, Pharmacist PERTINENT FINDINGS Notes: Pt will DC home when IRN >1.8; with follow up from PCP Dr. Kraft for anti-coag upon DC. Electronically signed by:Elyse An Position:Central Service Tech Pager ID:[phone] Electronically signed on:2011-06-03 1215Electronically signed by Elyse [...] INR >1.8 (Electronically Signed) Piero Goel PA-C [facility] Cardiac Surgery Ceci Handy PA-C - 2011 4:37 PM PDTPost-procedure note: Pt underwent small subxiphoid incision. Two pacing wires were removed. No complication. Pt to recover in PACU then back to 11K. Restart coumadin tonight. Start Heparin gtt tomorrow @ 0900. CECI ARAYA PA-C Division of Cardiothoracic Surgery [facility] Mail Code L353 [address] [facility] [address] Tiburcio Panda MD - [...] Electronically signed Tiburcio Chung MD, FACS, FACC Germination Worker, Department of Surgery Clinical Director, Adult Cardiac Surgery Co-Director, Multidisciplinary Heart Valve Clinic [facility] | [email or web address] eterson, Thuy L - 0 06/01/2011 4:07 [...] 66y/o M admitted for heparin bridge (has [facility] AV/MV) prior to retained epic ardial [...] included: Wtih Spouse or Domestic Partner Geramauricio [phone] FUNCTIONAL STATUS Patient's baseline functional status prior [...] that may arise. Electronically signed by:Elyse An Position:Central Service Tech Pager ID:[phone] Electronically signed on:2011-06-01 1148Electronically signed by Elyse [...] | + + + + + | [facility] | [address] | [place] [address] | | | PATHOLOGY | [address] [...] | + + + + + | [facility] | [address] | [place] [address] | | | PATHOLOGY | [address] [...] | + + + + + | [facility] | [address] | [place] [address] | | | PATHOLOGY | [address] [...] | + + + + + | [facility] | [address] | [place] [address] | | | PATHOLOGY | [address] [...] | + + + + + | [facility] DEPARTMENT OF | [address] | [place] [address] | | | PATHOLOGY | [address] [...] | + + + + + | [facility] | [address] | [place] [address] | | | PATHOLOGY | [address] [...] + + + + | PRODUCT | [id number] | | [facility] | | | UNIT [...] + + + + | BLOOD | [id number] | | [facility] | | | PRODUCT [...] | + + + + + | [facility] | [address] | [place] [address] | | | PATHOLOGY | [address] [...] [place] DEPARTMENT | [address] | [place] [address] | | | PATHOLOGY | [address] [...] | + + + + + | [facility] | [address] | [place] [address] | | | PATHOLOGY | [address] [...] DEPARTMENT OF | [address] | [place] [address] | | | PATHOLOGY | [address] [...] | + + + + + | [facility] DEPARTMENT OF | [address] | [place] [address] | | | PATHOLOGY | [address] [...] | + + + + + | [facility] | [address] | [place] [address] | | | PATHOLOGY | [address] [...] view image for the detailed interpretation from [employer] results. | CARDIOLOGY | + + + + + + + + | Performing | Address | City/State/Zipcode | Phone Number | | Organization | | | | + + + + + | [facility] DEPT OF | [address] | [place], [place] | | | CARDIOLOGY | [address] | [address] | | + + + + + [...] + + | [facility] DEPARTMENT OF | [address] | [place] [address] | | | PATHOLOGY | [address] [...] | + + + + + | [facility] | [address] | [place] [address] | | | PATHOLOGY | [address] [...] | + + + + + | [facility] | [address] | [place] [address] | | | PATHOLOGY | [address] [...] | + + + + + | [facility] | [address] | [place] [address] | | | PATHOLOGY | [address] [...] | | | | ONCE, 1 dose, [facility] 06/01/11 at 1615 | | | | [...]
--- OUTSIDE RECORDS SUMMARY | ~2019-01-19 | XMS | Encounter Summary ---
Demographics + + + | Address | [address] | | | [place] [address] | + + + | Home Phone | | + + + | Preferred Language | Unknown | + + + | Marital Status | | + + + | Hindu Affiliation | 1077 | + + + | Race | Unknown | + + + | Ethnic Group | Unknown | + + + Author + + + | Author | [facility] | | | and [place] | + + + | Organization | [facility] | | | [...] [place] | | | | | [address] | | + + + + + Care Team Providers + +------+ + | Care Supervisor Pyrotechnic Loading Name | Role | Phone | + [...] + + | 01/15/ | Telephone | [facility] | Nori Edwards, | Care Coordination | | 2019 | | INFECTIOUS DISEASE | Environmental Education Specialist | (Appointment) | | | | [address] [facility] | | | | | | [place], [place] | | | | | | [address] | | | | | | [phone] | | | +--------+ + + + [...] | | | | | JUDY Fitzgerald [facility]AN[facility]DMITRY | | | | | | [id number] | | | | | | | | +--------+---------+ + + + documented as of this encounter Visit Diagnoses Not on filedocumented in this encounter"
--- OUTSIDE RECORDS SUMMARY | ~2019-01-19 | XMS | Encounter Summary ---
Demographics + + + | Address | [address] | | | [place] [address] | + + + | Home Phone | | + + + | Preferred Language | Unknown | + + + | Marital Status | | + + + | Shinto Affiliation | MET | + + + [...] [place], [place] | | | | | [address] | | + + + + + | Zoey Marie | ECON | Unknown | | + + + + + | Dionne Alba | ECON | Unknown | | + + + + + Care Team Providers + +------+ + | Care Benefit Specialist Name | Role | Phone | [...] Duodenal | Cortes Henriquez MD | [address] | | | | | ulcer, | | [address] | | | | | unspecified | | [place] V[address]carra | | | | | as acute or | | Mailcode: | | | | | chronic, | | [facility] | | | | | without | | [place] | | | | | hemorrhage, | | [address] | | | | | perforation, | | [place], | | | | | or | | [place] [address] | | | | | obstruction | | Phone: | | | | | Procedures | | [phone] | | | | | CONSULT TO | | Fax: | | | | | GI PROCEDURE | | [phone] | | | | | UNIT: | | | | | | | COLONOSCOPY | | | +--------+--------+ + + + + Encounter Details +--------+ + + + + | Date | Type | Department | Care Team | Description | +--------+ + + + + | 05/06/ | [employer]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 and | | | | | | [facility] [place] [address] | | | | | | [place], [place] | | | | | | [address] | | | | | | [phone] | | | +--------+ + + + [...]
--- OUTSIDE RECORDS SUMMARY | ~2019-01-19 | XMS | Encounter Summary ---
Demographics + + + | Address | [address] | | | [place] [address] | + + + | Home Phone | | + + + | Preferred Language | Unknown | + + + | Marital Status | | + + + | Orthodox Affiliation | MET | + + + | Race | White | + + + | Ethnic Group | Not or | + + + Author + + + | Author | [facility] | + + + | Organization | [facility] | + + + | Address | Unknown | + + + | Phone | Unavailable | + + + Support + + + + + | Name | Relationship | Address | Phone | + + + + + | Marnie Morin | ECON | [address] | | | | | [place], [place] | | | | | [address] | | + + + + + | Zoey Marie | ECON | Unknown | | + + + + + | Dionne Alba | ECON | Unknown | | + + + + + Care Team Providers + +------+ + | Care Health Companion Name | Role | Phone | + [...] | | 2011 | | [facility] | MD | WIRE REMOVAL flouro | | | | Admitting Desk | | used | | | | Located on the 9th | | | | | | floor [address] | | | | | | [address] | | | | | | [place], [place] | | | | | | [address] | | | +--------+---------+ + + + [...] Course: Mr. Clay Morin was admitted to [facility] on 06/01/2011 for heparin bridge [...] Condition: good Discharging Physician: Electronically signed by: Leyt MARISCAL PAYakovC Department of Surgery | Division [...] Care Coordination rounds held. Disciplines attending included: Developer Analyst,, Cartography Technician,, Bedside RN,, art gallery director,, Physician, Dr. Winn, Physician's Metal Furniture Repairer,, Physical Therapist,, Steam Oven Operator,, Pharmacist PERTINENT FINDINGS Notes: Pt will DC home when IRN >1.8; with follow up from PCP Dr. Kraft for anti-coag upon DC. Electronically signed by:Elyse An Position:Developer Analyst Pager ID:[phone] Electronically signed on:2011-06-03 1215Electronically signed by Elyse [...] INR >1.8 (Electronically Signed) Piero Goel PA-C [facility] Cardiac Surgery Ceci Hnady PA-C - 2011 4:37 PM PDTPost-procedure note: Pt underwent small subxiphoid incision. Two pacing wires were removed. No complication. Pt to recover in PACU then back to 11K. Restart coumadin tonight. Start Heparin gtt tomorrow @ 0900. CECI ARAYA PA-C Division of Cardiothoracic Surgery Replaced By [facility] Mail Code L353 [address] [facility] [address] Tiburcio Panda MD - 06/01/2011 5:58 [...] Electronically signed Tiburcio Chung MD, FACS, FACC Bike Shop Manager, Department of Surgery Clinical Director, Adult Cardiac Surgery Co-Director, Multidisciplinary Heart Valve Clinic Replaced By [facility] | [email or web address] ennyferThuy ambriz Martinez Nagy 0 06/01/2011 4:07 [...] 66y/o M admitted for heparin bridge (has [facility]) prior to retained epic ardial [...] the living situation and support system included: [facility] Spouse or Domestic Partner Kai [phone] FUNCTIONAL STATUS Patient's baseline functional status prior [...] that may arise. Electronically signed by:Elyse An Position:Developer Analyst Pager ID:[phone] Electronically signed on:2011-06-01 1148Electronically signed by Elyse [...] 1.13Comment: | 0.90 - 1.20 INR | [facility] | | | | INR [...] | + + + + + | [facility] DEPARTMENT OF | [address] | [place] [address] | | | PATHOLOGY | [address] [...] | + + + + + | [facility] | [address] | [place] [address] | | | PATHOLOGY | [address] [...] DEPARTMENT OF | [address] | [place] [address] | | | PATHOLOGY | [address] [...] HEPARIN, | < 0.10Comment: | U/mL | CASU | | | STD LMW | Heparin, [...] | + + + + + | [facility] | [address] | [place] [address] | | | PATHOLOGY | [address] [...] | | + +---------+ + + | [facility] DEPARTMENT OF | | | [...] 1.13Comment: | 0.90 - 1.20 INR | [facility] | | | | INR [...] | + + + + + | [facility] | [address] | [place] [address] | | | PATHOLOGY | [address] [...] | + + + + + | [facility] | [address] | [place] [address] | | | PATHOLOGY | [address] [...] + + + + | PRODUCT | [id number] | | [facility] | | | UNIT [...] + + + + | BLOOD | [id number] | | [facility] | | | PRODUCT [...] | + + + + + | [facility] DEPARTMENT OF | [address] | [place] [address] | | | PATHOLOGY | [address] [...] [facility] DEPARTMENT | [address] | [place] [address] | | | PATHOLOGY | [address] [...] | + + + + + | [facility] | [address] | [place] [address] | | | PATHOLOGY | [address] [...] | | + +---------+ + + | [facility] DEPARTMENT OF | | | [...] DEPARTMENT OF | [address] | [place] [address] | | | PATHOLOGY | [address] [...] | + + + + + | [facility] DEPARTMENT | [address] | [place] [address] | | | PATHOLOGY | [address] [...] | HEPARIN, | 0.48Comment: | U/mL | [facility] | | | STD LMW [...] | + + + + + | [facility] | [address] | [place] [address] | | | PATHOLOGY | [address] [...] view image for the detailed interpretation from [employer] results. | CARDIOLOGY | + + + + + + + + | Performing | Address | City/State/Zipcode | Phone Number | | Organization | | | | + + + + + | [facility] DEPT OF | [address] | [place], [place] | | | CARDIOLOGY | [address] | [address] | | + + + + + [...] | + + + + + | [facility] DEPARTMENT OF | [address] | [place] [address] | | | PATHOLOGY | [address] | | | + + + + + INR (05/31/2011 8:49 PM PDT) + + + + + + | Component | Value | Ref Range | Performed | Pathologist | | | | | At | Signature | + + + + + + | INR | 1.14Comment: | 0.90 - 1.20 INR | [facility] | | | | INR [...] | + + + + + | [facility] | [address] | [place] [address] | | | PATHOLOGY | [address] [...] | + + + + + | [facility] | [address] | [place] [address] | | | PATHOLOGY | [address] [...] | + + + + + | [facility] | [address] | [place] [address] | | | PATHOLOGY | [address] [...]
--- OUTSIDE RECORDS SUMMARY | ~2019-01-19 | XMS | Encounter Summary ---
Demographics + + + | Address | [address] | | | [place] [address] | + + + | Home Phone | | + + + | Preferred Language | Unknown | + + + | Marital Status | | + + + | Congregational Affiliation | MET | + + + | Race | White | + + + | Ethnic Group | Not or | + + + Author + + + | Author | [facility] | + + + | Organization | [facility] | + + + | Address | Unknown | + + + | Phone | Unavailable | + + + Support + + + + + | Name | Relationship | Address | Phone | + + + + + | Marnie Osorio | ECON | [address] | | | | | [place], [place] | | | | | [address] | | + + + + + | Zoey Marie | JAZZMINE | Unknown | | + + + + + | Dionne Alba | ECON | Unknown | | + + + + + Care Team Providers + +------+ + | Care Gear Finisher Name | Role | Phone | + [...] | | | | valve | DO [facility] | [address] [facility] | | | | | disorders | [place] | [address] | | | | | | CARDIOLOGY | [address] [place], | | | | | | [address] | [place] | | | | | | [place] | [address] | | | | | | [address]IVE [address] | | | | | | | [address] | | | | | | | [place] | | | | | | | [address] | | | | | | | Phone: | | | | | | | [phone] | | | | | | | Fax: | | | | | | | [phone] | | +--------+--------+ + + + + [...] | | | | | | [place], | | | | | | [place] [address] | | | | | | [phone] | | | +--------+---------+ + + + [...] malaise. He is currently en route to [place] in his RV c his until May. [...] [facility] | [address] | [place] [address] | | | DAISY AQUINO | [address] [...]
--- OUTSIDE RECORDS SUMMARY | ~2019-01-19 | XMS | Clinical Summary ---
Demographics + + + | Address | [address] | | | [place] [address] | + + + | Home Phone | | + + + | Preferred Language | Unknown | + + + | Marital Status | | + + + | Muslim Affiliation | 1077 | + + + | Race | Unknown | + + + | Ethnic Group | Unknown | + + + Author + + + | Author | [employer] (Historical as of | | | 11-04-18) | + + + | Organization | [facility] [employer] (Historical as of | | | 11-04-18) [...] [place] | | | | | [address] | | + + + + + Care Team Providers + +------+ + | Care Director Dietetics Department Name | Role | Phone | + [...] [place] | | | | | | [address] | | | | | | | [...] +------+-------+ + | MEDICARE | MEDICA | [id number] | | | [address] | | | RE | | | | [place] [address] | | | IP-OP | | | | | + +--------+ +------+-------+ + | AETNA | AETNA | [id number] | | | | | | - [...] | | | scar | | | [address] | [address] | + +--------+ +--------+ + +
--- OUTSIDE RECORDS SUMMARY | ~2019-01-19 | XMS | Encounter Summary ---
Demographics + + + | Address | [address] | | | [place] [address] | + + + | Home Phone [...] [place], [place] | | | | | [address] | | + + + + + | Zoey Marie | ECON | Unknown | | + + + + + | Dionne Alba | ECON | Unknown | | + + + + + Care Team Providers + +------+ + | Care Secondary History Teacher Name | Role | Phone | [...] Duodenal | Cortes Henriquez MD | [address] | | | | | ulcer, | | [address] | | | | | unspecified | | Silvia Vizcarra | | | | | as acute or | | Mailcode: | | | | | chronic, | | [facility] | | | | | without | | [place] | | | | | hemorrhage, | | [address] | | | | | perforation, | | [place], | | | | | or | | [place] [address] | | | | | obstruction | | Phone: | | | | | Procedures | | [phone] | | | | | CONSULT TO | | Fax: | | | | | GI PROCEDURE | | [phone] | | | | | UNIT: EGD | | | +--------+--------+ + + + + Encounter Details +--------+ + + + + | Date | Type | Department | Care Team | Description | +--------+ + + + + | 05/08/ | Staff Radiologist | Digestive Health | Cortes Schmitt | Duodenal ulcer | | 2010 | | Center at [facility] [address] | MD Martinez | (Primary Dx) | | | | [address] | | | | | | Mailcode: [place] | | | | | | for Health and | | | | | | [facility], [place] [address] | | | | | | [place], [place] | | | | | | [address] | | | | | | [phone] | | | +--------+ + + + [...]
--- OUTSIDE RECORDS SUMMARY | ~2019-01-19 | XMS | Encounter Summary ---
Demographics + + + | Address | [address] | | | [place] [address] | + + + | Home Phone [...] + + | Author | [facility] | + + + | Organization | [facility] | + + + | Address | Unknown | + + + | Phone | Unavailable | + + + Support + + + + + | Name | Relationship | Address | Phone | + + + + + | Marnie Osorio | ECON | [address] | | | | | [place], [place] | | | | | [address] | | + + + + + | Zoey Marie | ECON | Unknown | | + + + + + | Dionne Alba | ECON | Unknown | | + + + + + Care Team Providers + +------+ + | Care Railroad Hand Name | Role | Phone | + [...] | | | | | Samantha Vizcarra [place], | | | | | | [place] [address] | | | | | | [phone] | | | +--------+------+ + + + [...] | + + + + + | [facility] | [address] | [place] [address] | | | DAISY AQUINO | [address] | | | + + + + + documented in this encounter Visit Diagnoses + + | Diagnosis | + + | S/P AVR (aortic valve replacement) Heart valve replaced by other means | + + documented in this encounter"
--- OUTSIDE RECORDS SUMMARY | ~2019-01-19 | XMS | Encounter Summary ---
Demographics + + + | Address | [address] | | | [place] [address] | + + + | Home Phone | | + + + | Preferred Language | Unknown | + + + | Marital Status | | + + + | Methodist Affiliation | MET | + + + | Race | White | + + + | Ethnic Group | Not or | + + + Author + + + | Author | [facility] | + + + | Organization | [facility] | + + + | Address | Unknown | + + + | Phone | Unavailable | + + + Support + + + + + | Name | Relationship | Address | Phone | + + + + + | Marnie Osorio | ECON | [address] | | | | | [place], [place] | | | | | [address] | | + + + + + | Zoey Marie | ECON | Unknown | | + + + + + | Dionne Alba | ECON | Unknown | | + + + + + Care Team Providers + +------+ + | Care Diamond Cleaner Name | Role | Phone | + [...] | | | | (aortic | [address] | [address] | | | | | valve | [address] | Mailcode: | | | | | replacement) | [address] | [facility] | | | | | Procedures | [place], [place] | for Health | | | | | X-RAY | [address] | and Healing, | | | | | ESOPHAGRAM | Phone: | Building [address], | | | | | | [phone] | 3rd Floor | | | | | | Fax: | [place], [place] | | | | | | [phone] | [address] | | | | | | | Phone: | | | | | | | [phone] | | | | | | | Fax: | | | | | | | [phone] | +--------+--------+ + + + + Encounter Details +--------+ + + + + | Date | Type | Department | Care Team | Description | +--------+ + + + + | 08/13/ | Hospital | Radiology/Imaging | | | | 2010 | Encounter | Lab at [facility] [address] | | | | | | [address] Mailcode: | | | | | | [facility] | | | | | | Health and Healing, | | | | | | Building , [facility] | | | | | | Floor [place], [place] | | | | | | [address] | | | | | | [phone] | | | +--------+ + + + [...]
--- OUTSIDE RECORDS SUMMARY | ~2019-01-19 | XMS | Encounter Summary ---
Demographics + + + | Address | [address] | | | [place] [address] | + + + | Home Phone | | + + + | Preferred Language | Unknown | + + + | Marital Status | | + + + | Moravian Affiliation | 1077 | + + + | Race | Unknown | + + + | Ethnic Group | Unknown | + + + Author + + + | Author | [facility] | | | and [place] | + + + | Organization | [facility] | | | [...] [place] | | | | | [address] | | + + + + + Care Team Providers + +------+ + | Care Assembler Radio And Electrical Name | Role | Phone | + +------+ + | Jesus Damon MD | PCP | | + +------+ + Encounter Details +--------+---------+ + + + | Date | Type | Department | Care Team | Description | +--------+---------+ + + + | 01/09/ | Office | [facility] | Kelly BurgessianDO | Osteomyelitis of | | 2019 | Visit | INFECTIOUS DISEASE | [address] | sternum (HCC) | | | | [address] | [place] [address] | (Primary Dx) | | | | [place], [place] | [phone] | | | | | [address] | | | | | | [phone] | | | +--------+---------+ + + + [...] | | | | | [place], [place] | | | | | | [address] | | | | | | | | +--------+---------+ + + + documented as of this encounter Visit Diagnoses + + | Diagnosis | + + | 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
--- OUTSIDE RECORDS SUMMARY | ~2019-01-19 | XMS | Encounter Summary ---
Demographics + + + | Address | [address] | | | [place] [address] | + + + | Home Phone [...] + + | Author | [facility] | + + + | Organization | [facility] | + + + | Address | Unknown | + + + | Phone | Unavailable | + + + Support + + + + + | Name | Relationship | Address | Phone | + + + + + | Marnie Osorio | ECON | [address] | | | | | [place], [place] | | | | | [address] | | + + + + + | Zoey Marie | ECON | Unknown | | + + + + + | Dionne Alba | ECON | Unknown | | + + + + + Care Team Providers + +------+ + | Care Campaign Director Name | Role | Phone | [...] | | 2011 | Only | [address] [facility] | [phone] | | | | | [address] | | | | | | [place], [place] | | | | | | [address] | | | +--------+ + + + [...] DEPT OF | [address] | [place], [place] | | | CARDIOLOGY | [address] | [address] | | + + + + + documented in this encounter Visit Diagnoses Not on filedocumented in this encounter"
--- OUTSIDE RECORDS SUMMARY | ~2019-01-19 | XMS | Encounter Summary ---
Demographics + + + | Address | [address] | | | [place] [address] | + + + | Home Phone [...] [place], [place] | | | | | [address] | | + + + + + | Zoey Marie | ECON | Unknown | | + + + + + | Dionne Alba | ECON | Unknown | | + + + + + Care Team Providers + +------+ + | Care Retention Representative Name | Role | Phone | + [...] Duodenal | Cortes Henriquez MD | [address] | | | | | ulcer, | | [address] | | | | | unspecified | | Silvia Vizcarra | | | | | as acute or | | Mailcode: | | | | | chronic, | | [facility] | | | | | without | | [place] | | | | | hemorrhage, | | [address] | | | | | perforation, | | [place], | | | | | or | | [place] [address] | | | | | obstruction | | Phone: | | | | | Procedures | | [phone] | | | | | CONSULT TO | | Fax: | | | | | GI PROCEDURE | | [phone] | | | | | UNIT: | | | | | | | COLONOSCOPY | | | +--------+--------+ + + + + Encounter Details +--------+ + + + + | Date | Type | Department | Care Team | Description | +--------+ + + + + | 05/06/ | Electoral Officer | Digestive Health | Cortes Schmitt | Duodenal ulcer | | 2010 | | [place] at [facility] [address] | MD Martinez | (Primary Dx) | | | | [address] | | | | | | Mailcode: [place] | | | | | | [facility] and | | | | | | [facility] [place] [address] | | | | | | [place], [place] | | | | | | [address] | | | | | | [phone] | | | +--------+ + + + [...]
--- OUTSIDE RECORDS SUMMARY | ~2019-01-19 | XMS | Encounter Summary ---
Demographics + + + | Address | [address] | | | [place] [address] | + + + | Home Phone | | + + + | Preferred Language | Unknown | + + + | Marital Status | | + + + | Jain Affiliation | MET | + + + [...] [place], [place] | | | | | [address] | | + + + + + | Zoey Marie | ECON | Unknown | | + + + + + | Dionne Alba | ECON | Unknown | | + + + + + Care Team Providers + +------+ + | Care Nutrition Aide Name | Role | Phone | + [...] + + | 11/12/ | Emergency | [facility] Emergency | | | | 2010 | | Department [address] | | | | | | [facility] | | | | | [facility] | | | | | | [place], [place] | | | | | | [address] | | | | | | [phone] | | | +--------+ + + + [...]
--- OUTSIDE RECORDS SUMMARY | ~2019-01-19 | XMS | Encounter Summary ---
Demographics + + + | Address | [address] | | | [place] [address] | + + + | Home Phone | | + + + | Preferred Language | Unknown | + + + | Marital Status | | + + + | Yazidi Affiliation | MET | + + + | Race | White | + + + | Ethnic Group | Not or | + + + Author + + + | Author | [facility] | + + + | Organization | [facility] | + + + | Address | Unknown | + + + | Phone | Unavailable | + + + Support + + + + + | Name | Relationship | Address | Phone | + + + + + | Marnie Osorio | ECON | [address] | | | | | [place], [place] | | | | | [address] | | + + + + + | Zoey Marie | ECON | Unknown | | + + + + + | Dionne Alba | ECON | Unknown | | + + + + + Care Team Providers + +------+ + | Care Cryogenics Repairer Name | Role | Phone | + [...] [address] | | | | | | [place], [place] | | | | | | [address] | | | +--------+ + + + [...]
--- OUTSIDE RECORDS SUMMARY | ~2019-01-19 | XMS | Clinical Summary ---
Demographics + + + | Address | [address] | | | [place] [address] | + + + | Home Phone | | + + + | Preferred Language | Unknown | + + + | Marital Status | | + + + | Restorationist Affiliation | 1077 | + + + | Race | Unknown | + + + | Ethnic Group | Unknown | + + + Author + + + | Author | [facility] (Historical as of | | | 11-04-18) | + + + | Organization | [facility] (Historical as of | | | 11-04-18) [...] [place] | | | | | [address] | | + + + + + Care Team Providers + +------+ + | Care Continuous Drier Operator Name | Role | Phone | [...] [place] | | | | | | [address] | | | | | | | [...] +------+-------+ + | MEDICARE | MEDICA | [id number] | | | [address] | | | RE | | | | [place] [address] | | | IP-OP | | | | | + +--------+ +------+-------+ + | AETNA | AETNA | [id number] | | | | | | - [...] | | | scar | | | [address] | [address] | + +--------+ +--------+ + +
--- OUTSIDE RECORDS SUMMARY | ~2019-01-19 | XMS | Clinical Summary ---
Demographics + + + | Address | [address] | | | [place] [address] | + + + | Home Phone [...] [place], [place] | | | | | [address] | | + + + + + | Zoey Marie | ECON | Unknown | | + + + + + | Dionne Alba | ECON | Unknown | | + + + + + Care Team Providers + +------+ + | Care Harvester Operator Name | Role | Phone | + +------+ + | iVk Kraft DO | PCP | | + +------+ + Source Comments OLIVA is fully live on both EpicCare Ambulatory and EpicCare InPatient.[facility] Allergies No Known Allergies Medications + + [...] | | | | | | | [address] | | + +--------+ +--------+ + +--------+ [...] scar | | | 2 (Home) | [address] | + +--------+ +--------+ + + Advance Directives + + + + + | Type | Date Recorded | Patient | Explanation | | | | Manager Call | | + + + + + [...] Power of | | | | | Showcase Trimmer | | | | + + + [...]
[~2019-01-19 06:18] MED LIST: BACTRIM DS TAB1 EACH PO; CENTRUM SILVER1 EAC6 PO; COUMADIN5 MG PO; DELATESTRY200 MG/1 M IM; DIGOXIN125 MCG PO; DOXYCYCLINE HY100 MG PO; FEROSUL325 MG PO; FLAXSEED1000 MG PO; FOLIC ACID1 MG PO; GABAPENTIN300 MG PO; LEVOTHYROXINE75 MCG PO; METOPROLOL TART25 MG PO; METOPROLOL TART50 MG PO; NITROGLYCERIN0.4 MG SL; SEPTRA DS TABL1 EACH PO; SULFAMETHOXAZO1 EAC1 PO; SYNTHROID75 MCG PO; WARFARIN SODIUM5 MG PO
== END 2019-01-19 10:52 | disposition home or self-care (01) ==
LOC: ED 06:18
DX: R04.2 Hemoptysis (principal); Z79.01 Long term (current) use of anticoagulants; Z87.891 Personal history of nicotine dependence; Z79.899 Other long term (current) drug therapy
CPT/HCPCS: 71046; 80053; 85025; 85610; 94640; 99283-25

== ENCOUNTER 2019-01-20 17:47 | Emergency (ER) | payer MEDICARE, OTHER ==
[~2019-01-20] VITALS: Ht 177.8 cm; Wt 62.1 kg
--- OUTSIDE RECORDS SUMMARY | ~2019-01-20 | XMS | Encounter Summary ---
Demographics + + + | Address | [address] | | | [place] [address] | + + + | Home Phone | | + + + | Preferred Language | Unknown | + + + | Marital Status | | + + + | Bahai Affiliation | MET | + + + | Race | White | + + + | Ethnic Group | Not or | + + + Author + + + | Author | [facility] | + + + | Organization | [facility] | + + + | Address | Unknown | + + + | Phone | Unavailable | + + + Support + + + + + | Name | Relationship | Address | Phone | + + + + + | Marnie Osorio | ECON | [address] | | | | | [place], [place] | | | | | [address] | | + + + + + | Zoey Marie | ECON | Unknown | | + + + + + | Dionne Alba | ECON | Unknown | | + + + + + Care Team Providers + +------+ + | Care Mechanic/Welder Name | Role | Phone | + +------+ + | Vik Kraft DO | PCP | | + +------+ + Reason for Visit AUTH/CERT (Routine) +--------+--------+ + + + + | Status | Reason | Specialty | Diagnoses / | Referred By | Referred To | | | | | Procedures | Contact | Contact | +--------+--------+ + + + + | Closed | | | | | | +--------+--------+ + + + + Encounter Details +--------+ + + + + | Date | Type | Department | Care Team | Description | +--------+ + + + + | 06/01/ | Anesthesia | 6A Intra [facility] | Carmela Triplett MD | | | 2011 | Event | [facility] | [address] [facility] | | | | | Admitting Desk | Silvia Vizcarra [facility] | | | | | Located on the | [place] [address] | | | | | floor [address] [facility] | [phone] | | | | | [address] | | | | | | [place], [place] | Marielle Kaufman [place] | | | | | [address] | [facility] | | | | | | Group [address] | | | | | | [address] | | | | | | [place] [address] | | | | | | [phone] | | | | | | | | +--------+ + + + + Anesthesia Record + + + + + | Procedure Name | Responsible | Anesthesia Start | Anesthesia Stop Time | | | Anesthesiologist | Time | | + + + + + | EPICARDIAL PACING | Carmela Triplett MD | 06/02/11 1427 | 06/02/11 1630 | | WIRE REMOVAL coyo | | | | | used (N/A ) | | | | + + + + + +----+---+ + + | Da | T | Event | Comment | | te | i | | | | | m | | | | | e | | | +----+---+ + + | 03 | 1 | An Start | | | /1 | 4 | | | | 4/ | 2 | | | | 20 | 7 | | | | 12 | | | | +----+---+ + + | | 1 | Eq Check | Anesthesia machine checked Equipment verified | | | 4 | | | | | 2 | | | | | 7 | | | +----+---+ + + | | 1 | Pt. Check | Prior to anesthesia start, pt. Identified, examined, chart | | | 4 | | reviewed, PARQ held, anesthetic plan made or approved by | | | 2 | | attending anesthesiologist. NPO status confirmed as appropriate | | | 8 | | for procedure Preoperative evaluation: unchanged | +----+---+ + + | | 1 | Preprocedur | Pt ID confirmed, informed consent obtained, insertion site | | | 4 | e Checklist | marked, equipment available | | | 2 | | | | | 8 | | | +----+---+ + + | | 1 | An Start | | | | 4 | Data | | | | 3 | | | | | 4 | | | +----+---+ + + | | 1 | Vitals | Monitors applied Vital signs checked | | | 4 | Checked | | | | 4 | | | | | 0 | | | +----+---+ + + | | 1 | Ready | | | | 4 | | | | | 4 | | | | | 0 | | | +----+---+ + + | | 1 | Quick Note | Awaiting arrival of surgeon | | | 4 | | | | | 4 | | | | | 9 | | | +----+---+ + + | | 1 | Quick Note | Local injected by surgeon | | | 4 | | | | | 5 | | | | | 3 | | | +----+---+ + + | | 1 | Abx | | | | 5 | Administere | | | | 2 | d | | | | 0 | | | +----+---+ + + | | 1 | Incision | | | | 5 | | | | | 2 | | | | | 1 | | | +----+---+ + + | | 1 | Surgery end | | | | 6 | | | | | 1 | | | | | 5 | | | +----+---+ + + | | 1 | Anesthesia | | | | 6 | End | | | | 3 | | | | | 0 | | | +----+---+ + + +------+ | Meds | +------+ + + + | Name | Total | + + + | propofol INF | 403,125 mcg | + + + | alfentanil | 1,000 mcg | + + + | ceFAZolin | 1,000 mg | + + + | LR | 700 mL | + + + + + | Name | + + | Avance Primary Agent 1=Iso 3= None 5=Logan 6=Sevo | + + | EtNO2 | + + | insp | + + | Et | + + | Insp N2O % | + + | O2 Flow Rate (Total Liters) | + + + + | No blood administrations on file. | + + +--------+ + + + | Type | Details | Placement | Removal | +--------+ + + + | RETIRE | 05/10/10; 328; 06/03/11; 737; | 05/10/10328 by | 06/03/11737 by | | D - | No; 26 fr. decompressive | Evangelina Goldberg RN | Seth Montesinos | | Gastri | gastrostomy feeding tube to drain | | [address]aman | | c/Feed | bag--placed | | | | ing | intraoperatively{"Juanito"} | | | | Tube | | | | +--------+ + + + | RETIRE | 05/10/10; 0405; 06/03/11; 0738; | 05/10/10 0405 by | 06/03/11 0738 by | | D - | No; 16 fr. Red Rubber placed as | Evangelina Goldberg RN | Seth Montesinos | | Gastri | feeding tube | | MARLINE [place]aman | | c/Feed | intraoperatively{"Witzel"} | | | | ing | | | | | Tube | | | | +--------+ + + + | RETIRE | 05/13/10; 0800; Bilateral:, | 05/13/10 0800 by | 06/03/11 07 by | | D - | lateral, upper; penis; | Sailaja Edeney | Seth Montesinos | | Wound | ulceration; 06/03/11; 0720 | | [address] | +--------+ + + + | RETIRE | 05/16/10; 1100; midline; abdomen; | 05/16/10 1100 by | 06/03/11 0720 by | | D - | 06/03/11; 0720 | Asuncion Madrigal RN | Seth oMntesinos | | Incisi | | | [place] | | on | | | | +--------+ + + + | RETIRE | 05/26/10; 1200; Sacral | 05/26/10 1200 by | 06/03/11 0720 by | | D - | Laceration; Yes; Right:; sacrum; | Len Rodrigues | Seth Montesinos | | Wound | skin tear, laceration, pressure | | [address] Zaman | | | ulcer; 06/03/11; 0720 | | | +--------+ + + + | RETIRE | 06/11/10; 0243; 06/03/11; 0720; | 06/11/10 0243 by | 06/03/11 0720 by | | D - | 10 fr. flat Timmy drain to Right | Evangelina Goldberg RN | Seth Montesinos | | Drains | flank incision--Right | | [place]aman | | | | | | | (wound | | | | | s/surg | | | | | ical) | | | | +--------+ + + + | RETIRE | 06/11/10; 0400; Right:, anterior; | 06/11/10 0400 by | 06/03/11 0720 by | | D - | abdomen; surgical wound; | Norman Frey | Seth Montesinos | | Wound | 06/03/11; 0720 | | [address] | +--------+ + + + | RETIRE | 06/03/11; 0720; No; left upper | 06/20/10 1834 by | 06/03/11 0720 by | | D - | quadrant drain; Left; Abdomen | | Seth Montesinos | | Drains | | | MARLINE [place]aman | | | | | | | (wound | | | | | s/surg | | | | | ical) | | | | +--------+ + + + | RETIRE | 06/23/10; 1430; central; Left:; | 06/23/10 1430 by | 06/03/11 0737 by | | D - | Arm; basilic; 5 Fr; 2; no; | Leda Spencer RN | Seth Montesinos | | PICC | saline; no; 4 cm (pulled back 4cm | | MARLINE Zaman | | Line | after cxr); 06/03/11; 0737 | | | +--------+ + + + | RETIRE | 06/30/10; 1000; Forearm; Left:; | 06/30/10 1000 by | 06/03/11 0720 by | | D - | skin tear; 06/03/11; 0720 | Norman Elsea | Seth Montesinos | | Wound | | | [address] | +--------+ + + + | RETIRE | 07/17/10; 1100; 06/03/11; 07; | 07/17/10 1100 by | 06/03/11 07 by | | D - | No; Santos; 6.0; Cuffed | Yelena Reyes RN | Seth Montesinos | | Trach | | | [address] | +--------+ + + + | RETIRE | 05/31/11; 2128; 06/04/11; 1799; | 05/31/112128 by | 06/04/11 1800 by | | D - | No; #20 guage; 20; Right; | Jelena Zafar RN | Discontinued After | | Periph | Forearm; Lidocaine; No; Positive | | Discharge | | eral | | | | | Line | | | | +--------+ + + + | RETIRE | 06/02/11; 1528; sternum; No; | 06/02/11 1528 by | 01/06/17 1622 by | | D - | anterior; chest; 01/06/17 | Mikki Junior RN | Discontinued After | | Incisi | (Automatic cleanup per RA | | Discharge | | on | 3006--contact admin for | | | | | questions.); 1622 (Automatic | | | | | cleanup per RA 3006--contact | | | | | admin for questions.) | | | +--------+ + + + | RETIRE | 06/02/11; 1553 (placed by M. | 06/02/11 1553 by | 06/04/11 0900 by | | D - | Sheldon TA); 06/04/11; 0900; No; | Mikki Junior RN | Seth Barnardlante | | Drains | 7mm CARLTON drain; CARLTON; Anterior, Left; | | [address] [place]aman | | | Chest | | | | (wound | | | | | s/surg | | | | | ical) | | | | +--------+ + + + documented in this encounter Social History + +-------+ +--------+------+ | Tobacco Use | Types | Packs/Day | Years | Date | | | | | Used | | + +-------+ +--------+------+ | Former Smoker | | | | | + +-------+ +--------+------+ + + | Comments: pt quit 32 yrs ago | + + + + +---------+ + | Alcohol Use | Drinks/Week | oz/Week | Comments | + + +---------+ + | Yes | 4 Shots of liquor | 3.3 | | + + +---------+ + + + + | Sex Assigned at | Date Recorded | | | | + + + | Not on file | | + + + + + + + | Job Start Date | Occupation | Industry | + + + + | Not on file | Not on file | Not on file | + + + + + + + + | Travel History | Travel Start | Travel End | + + + + + + | No recent travel history available. | + + documented as of this encounter Plan of Treatment Not on filedocumented as of this encounter Visit Diagnoses Not on filedocumented in this encounter Administered Medications + +--------+ +---------+------+------+ | Medication Order | MAR | Action | Dose | Rate | Site | | | Action | Date | | | | + +--------+ +---------+------+------+ | alfentanil (akbhavna ALFMERLYN) | Given | 06/02/19 | 100 mcg | | | | injection INTRAPROCEDURE PRN, | | 12 4:07 | | | | | Starting Tue06/02/11 at 1452, | | PM PDT | | | | | Until Tue06/02/11 at 1630 | | | | | | + +--------+ +---------+------+------+ +-------+ +---------+---+---+ | Given | 06/02/19 | 100 mcg | | | | | 12 4:00 | | | | | | PM PDT | | | | +-------+ +---------+---+---+ | Given | 06/02/19 | 100 mcg | | | | | 12 3:29 | | | | | | PM PDT | | | | +-------+ +---------+---+---+ +---+---+ | | | +---+---+ + +-------+ + +---+---+ | ceFAZolin (aka ANCEF) injection | Given | 06/02/19 | 1,000 mg | | | | intravenous, INTRAPROCEDURE | | 12 3:20 | | | | | PRN, Starting 06/02/11 at | | PM PDT | | | | | 1520, Until Tue06/02/11 at 1630 | | | | | | + +-------+ + +---+---+ +---+---+ | | | +---+---+ + + + +----+---+---+ | lactated ringers IV | given by | 06/02/19 | mL | | | | intravenous, INTRAPROCEDURE | | 12 4:28 | | | | | CONTINUOUS PRN, Starting Tue | anesthes | PM PDT | | | | | 06/02/11 at 1427, Until Tue | iology | | | | | | 06/02/11 at 1630 | | | | | | + + + +----+---+---+ +---------+ +----+---+---+ | New Bag | 06/02/19 | mL | | | | | 12 2:27 | | | | | | PM PDT | | | | +---------+ +----+---+---+ +---+---+ | | | +---+---+ + + + + +--------+---+ | propofol (alejandro NORRISRIMANUEL) | Rate/Dos | 06/02/19 | 75 | 29.03 | | | injection INTRAPROCEDURE | e Change | 12 3:37 | mcg/kg/m | mL/hr | | | CONTINUOUS PRN, Starting Wed | | PM PDT | in | | | | 06/02/11 at 1439, Until Wed | | | | | | | 06/02/11 at 1630 | | | | | | + + + + +--------+---+ + + + +--------+---+ | Rate/Dose Change | 06/02/19 | 50 | 19.35 | | | | 12 2:49 | mcg/kg/m | mL/hr | | | | PM PDT | in | | | + + + +--------+---+ | New Bag | 06/02/19 | 100 | 38.7 | | | | 12 2:39 | mcg/kg/m | mL/hr | | | | PM PDT | in | | | + + + +--------+---+ +---+---+ | | | +---+---+ documented in this encounter
--- OUTSIDE RECORDS SUMMARY | ~2019-01-20 | XMS | Encounter Summary ---
Demographics + + + | Address | [address] | | | [place] [address] | + + + | Home Phone | | + + + | Preferred Language | Unknown | + + + | Marital Status | | + + + | Oriental Orthodox Affiliation | 1077 | + + + | Race | Unknown | + + + | Ethnic Group | Unknown | + + + Author + + + | Author | [facility] | | | and [place] | + + + | Organization | [facility] | | | and [...] [place] | | | | | [address] | | + + + + + Care Team Providers + +------+ + | Care Regional Clinical Research Associate Name | Role | Phone | + [...] + + | 01/15/ | Telephone | [facility] | Nori Edwards, | Care Coordination | | 2019 | | INFECTIOUS DISEASE | Mental Health Tech | (Appointment) | | | | [address] [facility] | | | | | | [place], [place] | | | | | | [address] | | | | | | [phone] | | | +--------+ + + + [...] | | | | | JUDY Fitzgerald [place] | | | | | | [phone] | | | | | | | | +--------+---------+ + + + documented as of this encounter Visit Diagnoses Not on filedocumented in this encounter"
--- OUTSIDE RECORDS SUMMARY | ~2019-01-20 | XMS | Clinical Summary ---
Demographics + + + | Address | [address] | | | [place] [address] | + + + | Home Phone | | + + + | Preferred Language | Unknown | + + + | Marital Status | | + + + | Scientologist Affiliation | 1077 | + + + | Race | Unknown | + + + | Ethnic Group | Unknown | + + + Author + + + | Author | [facility] (Historical as of | | | 11-04-18) | + + + | Organization | [facility] (Historical as of | | | 11-04-18) | + + + | Address | Unknown | + + + | Phone | Unavailable | + + + Support + + + + + | Name | Relationship | Address | Phone | + + + + + | Marnie Osorio | ECON | [address] | | | | | [place] | | | | | [address] | | + + + + + Care Team Providers + +------+ + | Care Field Mechanic Name | Role | Phone | + +------+ + | Jesus Damon MD | PP | | + +------+ + Allergies + + + + + + | Active Allergy | Reactions | Severity | Noted | Comments | | | | | Date | | + + + + + + | Other-Environmental | Rhinitis | Low | 08/03/19 | "runny nose and | | | | | 16 | itchy eyes" | + + + + + + Current Medications + + +--------+---------+------+------+-------+ | Prescription | Sig. | Disp. | Refills | Star | End | Statu | | | | | | t | Date | s | | | | | | Date | | | + + +--------+---------+------+------+-------+ | ferrous sulfate | Take 325 mg by mouth | | | | | Activ | | 325 (65 FE) MG | 2 (two) times | | | | | e | | tablet | daily. | | | | | | + + +--------+---------+------+------+-------+ | levothyroxine | Take 75 mcg by mouth | | | | | Activ | | (SYNTHROID, | daily. | | | | | e | | LEVOTHROID) 75 MCG | | | | | | | | tablet | | | | | | | + + +--------+---------+------+------+-------+ | warfarin | Take 5 mg by mouth | | | | | Activ | | (COUMADIN) 5 MG | daily. Dr. Leighton Kraft | | | | | e | | tabletIndications: | regulatesPatient | | | | | | | afib and valvular | takes warfarin 5mg | | | | | | | heart disease | every day Except | | | | | | | | Tuesday when takes | | | | | | | | 7.5mg | | | | | | + + +--------+---------+------+------+-------+ | gabapentin | Take 300 mg by mouth | | | | | Activ | | (NEURONTIN) 300 MG | every evening. | | | | | e | | capsule | | | | | | | + + +--------+---------+------+------+-------+ | folic acid | Take 1 mg by mouth | | | | | Activ | | (FOLVITE) 1 MG | daily. | | | | | e | | tablet | | | | | | | + + +--------+---------+------+------+-------+ | Alpha-Lipoic Acid | Take 150 mg by mouth | | | | | Activ | | 150 MG CAPS | daily as needed | | | | | e | | | (1-2 tabs daily | | | | | | | | prn). | | | | | | + + +--------+---------+------+------+-------+ | Flaxseed, Linseed, | Take by mouth | | | | | Activ | | (FLAXSEED OIL) 1000 | daily. | | | | | e | | MG CAPS | | | | | | | + + +--------+---------+------+------+-------+ | MULTIPLE VITAMIN | Take by mouth | | | | | Activ | | PO | daily. | | | | | e | + + +--------+---------+------+------+-------+ | digoxin (LANOXIN) | Take 1 tablet by | 90 | 3 | 07/2 | | Activ | | 0.125 MG tablet | mouth daily. | tablet | | 3/20 | | e | | | | | | 18 | | | + + +--------+---------+------+------+-------+ | nitroGLYCERIN | Place 1 tablet under | 25 | 1 | 01/19 | | Activ | | (NITROSTAT) 0.4 MG | the tongue every 5 | tablet | | 05/10 | | e | | SL tablet | (five) minutes as | | | 18 | | | | | needed. | | | | | | + + +--------+---------+------+------+-------+ | | Take 1 tablet by | 180 | 3 | 05/19 | | Activ | | sulfamethoxazole-tri | mouth 2 (two) times | tablet | | 12/08 | | e | | methoprim (BACTRIM | daily. | | | 19 | | | | DS) 800-160 MG per | | | | | | | | tablet | | | | | | | + + +--------+---------+------+------+-------+ | Ascorbic Acid | Take 1,000 mg by | | | | | Activ | | (VITAMIN C) 1000 MG | mouth daily. | | | | | e | | tablet | | | | | | | + + +--------+---------+------+------+-------+ | metoprolol | Take 1 tablet by | 90 | 3 | 06 | | Activ | | (TOPROL-XL) 25 MG 24 | mouth nightly. | tablet | | 07/08 | | e | | hr tablet | | | | 19 | | | + + +--------+---------+------+------+-------+ Active Problems + + + | Problem | Noted Date | + + + | Persistent atrial fibrillation (HCC) | 02/01/2018 | + + + | Thyroid disease | 01/30/2018 | + + + | History of mitral valve replacement with mechanical valve | 10/10/2017 | + + + | Dyslipidemia | 10/10/2017 | + + + | Anticoagulated on Coumadin | 10/10/2017 | + + + | Supratherapeutic INR | 08/03/2015 | + + + | Atrial flutter (HCC) | 03/08/2013 | + + + + + | Last Assessment & Plan: A fib/flutter. On warfarin, | | mechanical heart valve.24hr , 02/10/2016: A fib, 69-141, | | averaging 95bpm. | + + + + + | Valvular heart disease | 03/08/2013 | + + + + + | Last Assessment & Plan: AVR (#23 SJM) / MVR (#29 SJM). | | Anticoagulation per PCP. Endocarditis prophylaxis reenforced. | | 70yo WM, doing relatively well, back today to follow-up on his | | 24-hour Holter monitor. 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 He denies any significant | | chest discomfort, shortness of breath, or lightheadedness. He | | walked 500 feet with me today at his own moderate pace and | | tolerated it well without any chest pain, palpitations, syncope, | | dyspnea, or lightheadedness but sometimes has problem with his | | balance but self corrects unsteady on his feet. He reports | | episodes of intermittent palpitations, and time his heart rate | | discussed past but for the most part this is relatively | | short-lived. He denied any new visual disturbances, dysarthria, | | dysphasia, lateralizing signs or symptoms. He also denies any | | significant bruising or bleeding. Results 24-hour Holter | | discussed with patient and results personally reviewed by me. It | | showed atrial fibrillation with rate 69-1 41 bpm and averaging | | in the 90s. His EKG may showed atrial fibrillation with | | controlled ventricular response of 81 bpm. We made no changes to | | his medications today as his blood pressure in the low range | | with a systolic of 95-100 mmHg. I will have him follow-up with | | our nurse practitioner, Mary Anne Rizzo ,whom he met today in | | 6 months.Hx CAB03/30/2010, AVR/MVR.Hx PCI/stent: noHx | | Pacemaker/ICD: noLast Cath: naLast Echo, 01/27/2012: LVEF 50-60%, | | AVR/MVR stable, mild Pulmonary HTN.Last stress test, 01/02/2015: | | Lexiscan, images NML, LVEF 65%.ECG, 08/03/2015: A. fib. | | Ventricular rate 81 bpm. QRS 90. Personally reviewed by Antonino | | 02/05/2016: Sodium 138, potassium 5, glucose 88, BUN | | 30/creatinine 1.27. GFR 56. CRP 6.5. Hemoglobin | | 12.9/hematocrit 39. Platelets 239. ESR 16 | + + + + + | Essential hypertension | 03/08/2013 | + + + + + | Last Assessment & Plan: HTN, controlled, continue current | | meds. Labs: 02/05/2016: Sodium 138, potassium 5, glucose 88, BUN | | 30/creatinine 1.27. GFR 56. CRP 6.5. Hemoglobin | | 12.9/hematocrit 39. Platelets 239. ESR 16 | + + + + + | Osteomyelitis of sternum (HCC) | 10/05/2012 | + + + + + | Last Assessment & Plan: Sternal osteomyelitis, chronic | | antibiotic suppression managed by Dr Burgess. | + + + + + | Other severe protein-calorie malnutrition | 01/25/2011 | + + + | Pain | 01/24/2011 | + + + | History of shingles | 01/24/2011 | + + + + + | Last Assessment & Plan: The patient has not had any signs or | | symptoms of recurrence, now off Valtrex for 48 hours. | + + + + + | Arm edema | 01/22/2011 | + + + + + | Last Assessment & Plan: This has resolved. | + + + + + | H/O mechanical aortic valve replacement | 01/19/2011 | + + + + + | Last Assessment & Plan: Blood cultures negative prior to | | antibiotics at the outside hospital. No evidence of endocarditis. | + + + + + | Anticoagulation monitoring, INR range 2.5-3.5 | 08/29/2010 | + + + + + | Overview: Overview: | | For Mechanical Aortic and Mitral Valves. | + + + +---+ | Physical deconditioning | | + +---+ Resolved Problems + + + + | Problem | Noted | Resolved | | | Date | Date | + + + + | Community acquired bacterial pneumonia | 08/03/19 | | | | 16 | 8 | + + + + | Sepsis (HCC) | 08/03/19 | | | | 16 | 8 | + + + + | Hemoptysis | 08/03/19 | | | | 16 | 9 | + + + + | Pneumonia due to Streptococcus (HCC) | 01/20/20 | | | | 11 | 8 | + + + + + + | Last Assessment & Plan: Continue Rocephin 2 g q.24 hours. Rx | | day # . Four-week course of therapy will be completed on | | February 142010. | + + + + + + | Empyema of left pleural space (HCC) | 01/20/20 | | | | 11 | 8 | + + + + + + | Last Assessment & Plan: Findings on CT scan showed resolution | | of the previous infection with mild residual scarring in the | | right lung base. The patient's lymphadenopathy has also improved | | with multiple lymph nodes still visible but not meeting | | pathologic size. These are likely related to the previous severe | | bilateral lung infection and should not need any further | | followup. | + + + + + + | Respiratory failure (HCC) | 01/20/20 | | | | 11 | 8 | + + + + + + | Last Assessment & Plan: Stable on the vent, await [facility] | | transfer. | + + + + + + | Mechanical complication of cardiac device, implant, and graft, | 12/03/19 | | | other | 11 | 1 | + + + + + + | Last Assessment & Plan: Blood cultures obtained on admission | | to the outside hospital were negative. It is unlikely that his | | current infection involves his mechanical heart valves. | + + + +---+ + | Empyema lung | | | | | | 8 | + +---+ + + + | Overview: 1st R lung, 2nd L lung | + + Immunizations + + + + | Name | Dates Previously Given | Next Due | + + + + | INFLUENZA, PF | 03/23/2016, 12/27/2013 | | | TRIVALENT HIGH DOSE | | | | 65 YRS OR > | | | + + + + | Influenza, Trivalent | 12/19/2012 | | | W/Preservative | | | + + + + | Pneumococcal | 08/04/2015 | | | Conjugate 13-valent | | | + + + + | Pneumococcal | 07/29/2014 | | | Polysaccharide | | | | 23-valent | | | + + + + | Tdap | 08/07/2011 | | + + + + | Zoster (Live) | 12/19/2009 | | + + + + Family History + + +------+ + | Medical History | Relation | Name | Comments | + + +------+ + | Heart disease | Father | | | + + +------+ + | Alzheimer's disease | Mother | | | + + +------+ + | Cancer | Mother | | lung | + + +------+ + | Lung cancer | Mother | | | + + +------+ + | Heart disease | Paternal | | | | | Grandmoth | | | | | er | | | + + +------+ + + +------+ + + | Relation | Name | Status | Comments | + +------+ + + | Father | | | heart disease | | | | (Age | | | | | 69) | | + +------+ + + | Mother | | | cancer,Alzheimers Disease | | | | (Age | | | | | 74) | | + +------+ + + | Paternal Grandmother | | | | + +------+ + + Social History + + + +--------+ + | Tobacco Use | Types | Packs/Day | Years | Date | | | | | Used | | + + + +--------+ + | Former Smoker | Cigarettes | 1 | 10 | Quit: 08/30/1976 | + + + +--------+ + + +---+---+---+ | Smokeless Tobacco: | | | | | Never Used | | | | + +---+---+---+ + + | Comments: quit about 33 yrs ago | + + + + +---------+ + | Alcohol Use | Drinks/We | oz/Week | Comments | | | ek | | | + + +---------+ + | No | 0 | 0.0 | | | | Standard | | | | | drinks or | | | | | | | | | | equivalen | | | | | t | | | + + +---------+ + + + + | Sex Assigned at | Date Recorded | | | | + + + | Not on file | | + + + Last Filed Vital Signs + + + + | Vital Sign | Reading | Time Taken | + + + + | Blood Pressure | 122/52 | 09/11/2018 3:02 PM PDT | + + + + | Pulse | 74 | 09/11/2018 3:02 PM PDT | + + + + | Temperature | 36.1 C (96.9 F) | 06/27/2018 10:50 AM PDT | + + + + | Respiratory Rate | 16 | 09/11/2018 3:02 PM PDT | + + + + | Oxygen Saturation | 99% | 09/11/2018 3:02 PM PDT | + + + + | Inhaled Oxygen | - | - | | Concentration | | | + + + + | Weight | 66.5 kg (146 lb 9.6 | 09/11/2018 3:02 PM PDT | | | oz) | | + + + + | Height | 177.8 cm (5' 10") | 09/11/2018 3:02 PM PDT | + + + + | Body Mass Index | 21.03 | 09/11/2018 3:02 PM PDT | + + + + Plan of Treatment +--------+---------+ + + + | Date | Type | Specialty | Care Team | Description | +--------+---------+ + + + | 03/01/ | Office | | Kristy Luna DO | | | 2019 | Visit | | [address] | | | | | | [place] | | | | | | [address] | | | | | | | | +--------+---------+ + + + + + + + + | Health Maintenance | Due Date | Last Done | Comments | + + + + + | Colon Cancer | | | | | Screening | 7 | | | | (Colonoscopy) | | | | + + + + + | Vaccine: Zoster (2 | | 12/19/2009 | | | of 3) | 0 | | | + + + + + | Statin Therapy | | | | | (optimal intensity) | 7 | | | + + + + + | Vaccine: Influenza | | 03/23/2016, 12/27/2013, | | | (#1) | 9 | 12/19/2012 | | + + + + + | Vaccine: | | 08/07/2011 | | | Dtap/Tdap/Td (2 - | 2 | | | | Td) | | | | + + + + + | Vaccine: | Completed | 08/04/2015, 07/29/2014 | | | Pneumococcal 65+ | | | | | Low/Medium Risk | | | | + + + + + Results Not on filefrom Last 3 Months Insurance + +--------+ +------+-------+ + | Payer | Benefi | Subscriber | Type | Phone | Address | | | t Plan | ID | | | | | | / | | | | | | | Group | | | | | + +--------+ +------+-------+ + | MEDICARE | MEDICA | [id number] | | | [address] | | | RE | | | | [place] [address] | | | IP-OP | | | | | + +--------+ +------+-------+ + | AETNA | AETNA | [id number] | | | | | | - [place] | | | | | + +--------+ +------+-------+ + + +--------+ +--------+ + + | Guarantor Name | Accoun | Relation to | Date | Phone | Billing Address | | | t Type | Patient | of | | | | | | | | | | + +--------+ +--------+ + + | CLAY OSORIO | Person | Self | [birth year] | Home: | [address] | | | [place] | | 1946 | [phone] [place] | | | scar | | | [phone] | [address] | + +--------+ +--------+ + +
--- OUTSIDE RECORDS SUMMARY | ~2019-01-20 | XMS | Encounter Summary ---
Demographics + + + | Address | [address] | | | [place] [address] | + + + | Home Phone | | + + + | Preferred Language | Unknown | + + + | Marital Status | | + + + | Orthodox Affiliation | MET | + + + | Race | White | + + + | Ethnic Group | Not or | + + + Author + + + | Author | [facility] | + + + | Organization | [facility] | + + + | Address | Unknown | + + + | Phone | Unavailable | + + + Support + + + + + | Name | Relationship | Address | Phone | + + + + + | Marnie Osorio | ECON | [address] | | | | | [place], [place] | | | | | [address] | | + + + + + | Zoey Marie | ECON | Unknown | | + + + + + | Dionne Alba | ECON | Unknown | | + + + + + Care Team Providers + +------+ + | Care Yarding Supervisor Name | Role | Phone | + +------+ + | Vik Kraft DO | PCP | | + +------+ + Encounter Details +--------+ + + + + | Date | Type | Department | Care Team | Description | +--------+ + + + + | 05/31/ | Results | LAB REFERRED TESTS | Other, Faculty | | | 2011 | Only | [address] [facility] | [phone] | | | | | [address] | | | | | | [place], [place] | | | | | | [address] | | | +--------+ + + + [...] Not on filedocumented as of this encounter Procedures + +--------+ + + + | Procedure Name | Priori | Date/Time | Associated Diagnosis | Comments | | | ty | | | | + +--------+ + + + | EJECTION FRACTION | Routin | 06/01/2011 | | Results for this | | | e | 3:03 PM | | procedure are in the | | | | PDT | | results section. | + +--------+ + + + documented in this encounter Results EJECTION FRACTION (06/01/2011 3:03 PM PDT) + + + + + + | Component | Value | Ref Range | Performed | Pathologist | | | | | At | Signature | + + + + + + | EJECTION | 50 - 55%Comment: EF | | [facility] | | | FRACTION | Recorded from | | OF | | | | Transthoracic | | CARDIOLOGY | | | | Echocardiogram | | | | + + + + + + + + | Specimen | + + | | + + + + + + + | Performing | Address | City/State/Zipcode | Phone Number | | Organization | | | | + + + + + | [facility] | [address] | [place], [place] | | | CARDIOLOGY | [address] | [address] | | + + + + + documented in this encounter Visit Diagnoses Not on filedocumented in this encounter"
--- OUTSIDE RECORDS SUMMARY | ~2019-01-20 | XMS | Encounter Summary ---
Demographics + + + | Address | [address] | | | [place] [address] | + + + | Home Phone | | + + + | Preferred Language | Unknown | + + + | Marital Status | | + + + | Restorationist Affiliation | 1077 | + + + | Race | Unknown | + + + | Ethnic Group | Unknown | + + + Author + + + | Author | [facility] | | | and [place] | + + + | Organization | [facility] | | | and [...] [place] | | | | | [address] | | + + + + + Care Team Providers + +------+ + | Care Auctioneer Art Name | Role | Phone | + +------+ + | Jesus Damon MD | PCP | | + +------+ + Encounter Details +--------+---------+ + + + | Date | Type | Department | Care Team | Description | +--------+---------+ + + + | 01/09/ | Office | [facility] | Kelly BurgessianDO | Osteomyelitis of | | 2019 | Visit | INFECTIOUS DISEASE | [address] | sternum (HCC) | | | | [address] | [place] [address] | (Primary Dx) | | | | [place], [place] | [phone] | | | | | [address] | | | | | | [phone] | | | +--------+---------+ + + + Social History + +-------+ [...] + + documented as of this encounter Last Filed Vital Signs + + + + | Vital Sign | Reading | Time Taken | + + + + | Blood Pressure | 108/65 | 01/09/20191424 PDT | + + + + | Pulse | 76 | 01/09/20191424 PDT | + + + + | Temperature | 36.5 C (97.7 F) | 01/09/20191424 PDT | + + + + | Respiratory Rate | 16 | 01/09/20191424 PDT | + + + + | Oxygen Saturation | 99% | 01/09/20191424 PDT | + + + + | Inhaled Oxygen | - | - | | Concentration | | | + + + + | Weight | 65.3 kg (144 lb) | 01/09/2019 1425 PDT | + + + + | Height | - | - | + + + + | Body Mass Index | 20.66 | 09/11/2018 1505 PDT | + + + + documented in this encounter Patient Instructions Patient Instructions Juanito Burgess DO - 01/09/2019 14:40 PDTContinue Bactrim once daily.Elec tronically signed by Juanito Burgess DO at 01/09/2019 15:04 PDT documented in this encounter Progress Notes Juanito Burgess DO - 01/09/2019 1440 PDT Subjective Patient ID: Clay Osorio is a 73 y.o. male. Chief complaint: Follow-up sternal osteomyelitis Background history: This is a pleasant 72-year-old male with a history of recurrent sternal wound infection wit h presumed underlying chronic osteomyelitis and chronic draining sinus tract. The patient west s had 2 relapses in the past after stopping antibiotic therapy, and due to the presence of p rosthetic valves has been placed on chronic lifelong suppression. He was initially taking mi nocycline, but was switched to trimethoprim-sulfamethoxazole due to blue pigmentation on his skin. The patient had been doing very well when he followed up in February 2018, but called in March 2018 to report that a new bump that appeared on his chest wound. CT scan suggest ed there may be a pocket of fluid below the sternum at that level. The patient underwent peña rnal debridement with removal of [address] Menedz on May 31, 2018, and recov ered well, discharged home to continue Bactrim as previously prescribed. Interim history: The patient presents for follow-up today and reports that his chest has been doing well, west s not had any redness, swelling or drainage there. He denies any fevers or chills. Bactrim double strength once daily has been well-tolerated, no nausea, vomiting or diarrhea. He west s been struggling with control of his INR recently, but has not had any change in his diet. He has also been found to have a very high iron level, but has been taking iron supplementa tion for anemia. The following elements of the patient's history were reviewed and updated as appropriate. T hey are available elsewhere in the patient record. allergies, current medications, past med ical history, past social history and problem list Review of Systems Objective BP 108/65 | Pulse 76 | Temp 36.5 C (97.7 F) (Oral) | Resp 16 | Wt 65.3 kg (144 lb) | SpO2 99% | BMI 20.66 kg/m Physical Exam Assessment /Plan 1. Osteomyelitis of sternum (HCC) This has now been debrided, and the patient continues to do well on chronic suppression wit h trimethoprim-sulfamethoxazole. There is no evidence of recurrent infection at the site. I do not suspect that this problem or the trimethoprim-sulfamethoxazole is contributing to h is anemia and elevated iron levels. Trimethoprim-sulfamethoxazole can interact with Coumadi n, but as long as his dosing of the antibiotic does not change, it should not lead to instab ility in the INR. Agree with hematology consultation for assistance with anticoagulation an d his anemia, which is noted to be normocytic or on the upper limit of cell size. A total of 15 minutes was spent face to face with the patient, of which greater than 10 min utes was spent in education and councilling regarding the above issues. documented in this encounter Plan of Treatment +--------+---------+ + + + | Date | Type | Specialty | Care Team | Description | +--------+---------+ + + + | 03/01/ | Office | Cardiology | Kristy Luna DO | | | 2018 | Visit | | [address] | | | | | | [place], [place] | | | | | | [address] | | | | | | | | +--------+---------+ + + + documented as of this encounter Visit Diagnoses + + | Diagnosis | + + | 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
--- OUTSIDE RECORDS SUMMARY | ~2019-01-20 | XMS | Encounter Summary ---
Demographics + + + | Address | [address] | | | [place] [address] | + + + | Home Phone | | + + + | Preferred Language | Unknown | + + + | Marital Status | | + + + | Jewish Affiliation | 1077 | + + + | Race | Unknown | + + + | Ethnic Group | Unknown | + + + Author + + + | Author | [facility] | | | and [place] | + + + | Organization | [facility] | | [...] [place] | | | | | [address] | | + + + + + Care Team Providers + +------+ + | Care Parts Department Manager Name | Role | Phone | + +------+ + | Jesus Damon MD | PCP | | + +------+ + Encounter Details +--------+---------+ + + + | Date | Type | Department | Care Team | Description | +--------+---------+ + + + | 01/09/ | Office | [facility] | Kelly BurgessianDO | Osteomyelitis of | | 2019 | Visit | INFECTIOUS DISEASE | [address] | sternum (HCC) | | | | [address] | [place] [address] | (Primary Dx) | | | | [place], [place] | [phone] | | | | | [address] | | | | | | [phone] | | | +--------+---------+ + + + [...] removal of [address] Mendez on May 31, 2018, and recov ered [...] | | | | | [address] [place], [place] | | | | | | [address] | | | | | | | | +--------+---------+ + + + documented as of this encounter Visit Diagnoses + + | Diagnosis | + + | 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
--- OUTSIDE RECORDS SUMMARY | ~2019-01-20 | XMS | Encounter Summary ---
Demographics + + + | Address | [address] | | | [place] [address] | + + + | Home Phone | | + + + | Preferred Language | Unknown | + + + | Marital Status | | + + + | Quaker Affiliation | MET | + + + | Race | White | + + + | Ethnic Group | Not or | + + + Author + + + | Author | [facility] | + + + | Organization | [facility] | + + + | Address | Unknown | + + + | Phone | Unavailable | + + + Support + + + + + | Name | Relationship | Address | Phone | + + + + + | Marnie Osorio | ECON | [address] | | | | | [place], [place] | | | | | [address] | | + + + + + | Zoey Marie | ECON | Unknown | | + + + + + | Dionne Alba | ECON | Unknown | | + + + + + Care Team Providers + +------+ + | Care Production Lapping Machine Operator Name | Role | Phone | + +------+ + | Vik Kraft DO | PCP | | + +------+ + Reason for Referral Consultation (Routine) +--------+--------+ + + + + | Status | Reason | Specialty | Diagnoses / | Referred By | Referred To | | | | | Procedures | Contact | Contact | +--------+--------+ + + + + | Closed | | Gastroenterol | Diagnoses | Schlansky, | [facility] End[facility] | | | | ogy | Duodenal | Cortes Henriquez MD | [address] | | | | | ulcer, | | Chuck Williamson | | | | | unspecified | | Silvia Vizcarra | | | | | as acute or | | Mailcode: | | | | | chronic, | | [facility] | | | | | without | | [place] | | | | | hemorrhage, | | [address] | | | | | perforation, | | [place], | | | | | or | | [place] [address] | | | | | obstruction | | Phone: | | | | | Procedures | | [phone] | | | | | CONSULT TO | | Fax: | | | | | GI PROCEDURE | | [phone] | | | | | UNIT: | | | | | | | COLONOSCOPY | | | +--------+--------+ + + + + Encounter Details +--------+ + + + + | Date | Type | Department | Care Team | Description | +--------+ + + + + | 05/06/ | Community Midwife | Digestive Health | Cortes Schmitt | Duodenal ulcer | | 2010 | | [place] [facility] [address] | MD Martinez | (Primary Dx) | | | | [address] | | | | | | Mailcode: [place] | | | | | | [facility] | | | | | | [facility] [place] [address] | | | | | | [place], [place] | | | | | | [address] | | | | | | [phone] | | | +--------+ + + + [...] filedocumented as of this encounter Visit Diagnoses + + | Diagnosis | + + | Duodenal ulcer, unspecified as acute or chronic, without hemorrhage, perforation, or | | obstruction - Primary | + + documented in this encounter"
--- OUTSIDE RECORDS SUMMARY | ~2019-01-20 | XMS | Clinical Summary ---
Demographics + + + | Address | [address] | | | [place] [address] | + + + | Home Phone | | + + + | Preferred Language | Unknown | + + + | Marital Status | | + + + | Advent Affiliation | 1077 | + + + | Race | Unknown | + + + | Ethnic Group | Unknown | + + + Author + + + | Author | [facility] | | | and [place] | + + + | Organization | [facility] | | | [...] [place] | | | | | [address] | | + + + + + Care Team Providers + +------+ + | Care Vocational Guidance Counselor Name | Role | Phone | + [...] + +---+ + + | Overview: JOLANTA [id number] Decision | + + + +---+ | [...] Coordination | | 2019 | | | Route Delivery Supervisor | (Appointment) | +--------+ + + + [...] | | | | | [facility] [place] | | | | | | [address] | | | | | | | [...] +--------+ +---------+--------+ | MEDICARE | MEDICA | [id number] | 03/21/19 | [phone] | | Medica | | | RE | | 12-Pre | 5 | | re | | | PART A | | sent | | | | | | AND B | | | | | | + +--------+ +--------+ +---------+--------+ | GEHA | GEHA | [id number] | 03/21/19 | [phone] | | Indemn | | | MDCR | | 10-Pre | 6 | | ity | | | SUPPL | | sent | | | | + +--------+ +--------+ +---------+--------+ | MEDICARE | MEDICA | [id number] | 03/21/19 | [phone] | | Medica | | | RE | | 12-Pre | 5 | | re | | | PART A | | sent | | | | | | AND B | | | | | | + +--------+ +--------+ +---------+--------+ | GEHA | GEHA | [id number] | 01/09/ | [phone] | | Indemn [...] scar | | | 2 (Home) | [address] | + +--------+ +--------+ + + | Clay Osorio | Person | Self | [birth year] | [address] | | | al/Fam | | 1946 | [phone] | [place] | | | scar | | | 2 ([place]) | [phone] | + +--------+ +--------+ + + Advance Directives Patient has advance care planning documents on file. For more information, please contact:[facility] [place] [address]
--- OUTSIDE RECORDS SUMMARY | ~2019-01-20 | XMS | Encounter Summary ---
Demographics + + + | Address | [address] | | | [place] [address] | + + + | Home Phone [...] Author + + + | Author | [facility] | + + + | Organization | [facility] | + + + | Address | Unknown | + + + | Phone | Unavailable | + + + Support + + + + + | Name | Relationship | Address | Phone | + + + + + | Marnie Osorio | ECON | [address] | | | | | [place], [place] | | | | | [address] | | + + + + + | Zoey Marie | ECON | Unknown | | + + + + + | Dionne Alba | ECON | Unknown | | + + + + + Care Team Providers + +------+ + | Care Corn Cutter Operator Name | Role | Phone | + +------+ + | Vik Kraft DO | PCP | | + +------+ + Reason for Visit Diagnostic Testing (Routine) +--------+--------+ + + + + | Status | Reason | Specialty | Diagnoses / | Referred By | Referred To | | | | | Procedures | Contact | Contact | +--------+--------+ + + + + | Closed | | Radiology | Diagnoses | Wacek, | Rad General | | | | | S/P AVR | GALLO Diaz | [address] | | | | | (aortic | [address] | [address] | | | | | valve | [address] | Mailcode: | | | | | replacement) | [address] | [facility] | | | | | Procedures | [place], [place] | for Health | | | | | X-RAY | [address] | and Healing, | | | | | [facility] | Phone: | [address], | | | | | | [phone] | [address]rd Floor | | | | | | Fax: | [place], [place] | | | | | | [phone] | [address] | | | | | | | Phone: | | | | | | | [phone] | | | | | | | Fax: | | | | | | | [phone] | +--------+--------+ + + + + Encounter Details +--------+ + + + + | Date | Type | Department | Care Team | Description | +--------+ + + + + | 08/13/ | Hospital | Radiology/Imaging | | | | 2010 | Encounter | Lab at [facility] [address] | | | | | | [address] Mailcode: | | | | | | [facility] | | | | | | [facility] and Healing, | | | | | | Building , [facility] | | | | | | Floor [place], [place] | | | | | | [address] | | | | | | [phone] | | | +--------+ + + + [...] | + +--------+ + + + | ORDERS OTHER | | 08/13/2010 | | Results for this | | | | 12:00 AM | | procedure are in the | | | | PDT | | results section. | + +--------+ + + + documented in this encounter Results ORDERS OTHER (08/13/2010 12:00 AM PDT) + + + | Narrative | Performed At | + + + | | | + + + + + | Procedure Note | + + | Angy Carrillo - 08/22/2010 8:03 AM PDT | | | + + documented in this encounter Visit Diagnoses + + | Diagnosis | + + | S/P AVR (aortic valve replacement) Heart valve replaced by other means | + + documented in this encounter"
--- OUTSIDE RECORDS SUMMARY | ~2019-01-20 | XMS | Encounter Summary ---
Demographics + + + | Address | [address] | | | [place] [address] | + + + | Home Phone | | + + + | Preferred Language | Unknown | + + + | Marital Status | | + + + | Mandaen Affiliation | MET | + + + [...] + + + + + | Marnie Morin | ECON | [address] | | | | | [place], [place] | | | | | [address] | | + + + + + | Zoey Marie | ECON | Unknown | | + + + + + | Dionne Alba | ECON | Unknown | | + + + + + Care Team Providers + +------+ + | Care Well Digger Name | Role | Phone | + [...] +--------+--------+ + + + + Encounter Details +--------+---------+ + + + | Date | Type | Department | Care Team | Description | +--------+---------+ + + + | 06/01/ | Surgery | 6A Intra Op [facility] | Tiburcio Chung, | EPICARDIAL PACING | | 2011 | | [facility] | MD | WIRE REMOVAL flouro | | | | Admitting Desk | | used | | | | Located on the 9th | | | | | | floor [address] | | | | | | [address] | | | | | | [place], [place] | | | | | | [address] | | | +--------+---------+ + + + [...] + + + | Blood Pressure | 94/64 | 06/04/2011 8:21 AM | | | | | PDT | | + + + + + | Pulse | 110 | 06/04/2011 8:21 AM | | | | | PDT | | + + + + + | Temperature | 36.6 C (97.9 F) | 06/04/2011 8:21 AM | | | | | PDT | | + + + + + | Respiratory Rate | 16 | 06/04/2011 8:21 AM | | | | | PDT | | + + + + + | Oxygen Saturation | 99% | 06/04/2011 8:21 AM | | | | | PDT | | + + + + + | Inhaled Oxygen | - | - | | | Concentration | | | | + + + + + | Weight | 64.6 kg (142 lb 6.7 | 06/04/2011 9:23 AM | | | | oz) | PDT | | + + + + + | Height | 177.8 cm (5' 10") | 05/31/2011 7:58 PM | | | | | PDT | | + + + + + | Body Mass Index | 20.43 | 05/31/2011 7:58 PM | | | | | PDT | | + + + + + documented in this encounter Discharge Summaries Lety Cuellar PA - 06/07/2011 2:27 PM PDTFormatting of this note might be different f rom the original. INPATIENT PHYSICIAN DISCHARGE SUMMARY Author: MAHAMED MAN Attending Physician: Tiburcio Chung MD PCP: Vik Kraft DO Admission Date: 06/01/2011 Discharge Date: 06/04/2011 Principal Final Diagnoses: Retained epicardial pacing wire Additional Diagnoses: H/o MSSA endocarditis s/p MVR/AVR (mechanical) H/o respiratory failure requiring multiple intubations and tracheostomy - decannulated H/o empyema s/p decortication H/o duodenal perforation s/p ex lap and PEG - dc'd Afib Hypothyroid Chronic anemia Principal Procedure: Extraction of retained pacing wires Additional Procedures: CARLTON drain IVs TTE Hospital Course: Mr. Clay Morin was admitted to [facility] on 06/01/2011 for heparin bridge (on warfarin for Af ib and mechanical MV and AV) and underwent pacing wire removal on 06/02/2011. He recovered i n the PACU and then was transferred to the telemetry floor. Warfarin was restarted that nig ht. Heparin gtt bridge was restarted 06/02. Drain was removed on 06/03, and was di scharged home on lovenox while his INR became therapeutic. Medications: Discharge Medication List as of 06/04/2011 10:06 AM START taking these medications Details HYDROcodone-acetaminophen 5-325 mg Oral Tablet Take 1-2 Tabs by mouth every four hours as n eeded. Not to exceed 10 tablets per any 24 hour period. (Not to exceed 3250 mg of acetaminop hen from all products per 24 hour period.), Disp-20 Tab, R-0, Print Prescription CONTINUE these medications which have CHANGED or have new prescriptions Details enoxaparin 80 mg/0.8 mL Subcutaneous Syringe Inject 0.6 mL under the skin (SUBC) every twel ve hours for 4 doses., Disp-2.4 mL, R-2, Print Prescription trimethoprim-sulfamethoxazole 160-800 mg Oral Tablet Take 1 Tab by mouth two times daily fo r 14 days., Disp-28 Tab, R-0, Print Prescription CONTINUE these medications which have NOT CHANGED Details levothyroxine 75 mcg Oral Tablet Take 75 mcg by mouth once daily. , Historical Med metoprolol tartrate 25 mg Oral Tablet Take 25 mg by mouth two times daily., Historical Med warfarin (COUMADIN) 4 mg Oral Tablet Take 4 mg by mouth once daily. , Historical Med Outstanding labs/studies: INR/anticoag monitoring - First appt TuesdayJune 06. Diet: regular Activity: as tolerated. Shower daily. Follow Up: PCP - Vik Kraft DO - 2-4 weeks Disposition: home Condition: good Discharging Physician: Electronically signed by: Lety MARISCAL PAYakovC Department of Surgery | Division of Cardiothoracic Surgery Attending Physician: Tiburcio Chung MD documented in this encounter Discharge Instructions Instructions Seth Guillen RN - 06/04/2011Patient Education Materials: Signs and symptoms of wound infection Wound care. Additional Instructions: Call or come in for: Fever Increased pain not relieved by pain meds Colored drainage from wound especially green or yellow Increased redness around wound . Sensation of heat from around wound. AVOID Driving while taking pain meds Drinking alcohol while taking pain meds. Handling your wound with your bare hands unless you wash them with soap and water well. Take your Lovenox as directed and follow up with your primary doctor. Discharge Nurse: Seth Zaman Date: 06/04/2011 Discharge Time: 10:04 AM AttachmentsThe following attachments cannot be sent through Care Everywhere.Adult Health Ad visor 2010.3: Surgical Site InfectionAdult Health Advisor 2010.3: Wound Closure and Wound Ca reAdult Health Advisor 2010.3: Wound Care with Topical Skin Adhesivedocumented in this encou nter Medications at Time of Discharge + + + +---------+ + + | Medication | Sig | Dispensed | Refills | Start | End Date | | | | | | Date | | + + + +---------+ + + | | Take 1-2 Tabs by | 20 Tab | 0 | // | | | HYDROcodone-acetamin | mouth every four | | | 12 | | | ophen 5-325 mg Oral | hours as needed. Not | | | | | | Tablet | to [...] hour period.) | | | | | + + + +---------+ + + | levothyroxine 75 | Take 75 mcg by mouth | | 0 | | | | mcg Oral Tablet | once daily. | | | | | + + + +---------+ + + | metoprolol | Take 50 mg by mouth | | 0 | | | | tartrate 25 mg Oral | two times daily. | | | | | | Tablet | | | | | | + + + +---------+ + + | enoxaparin 60 | Inject 0.6 mL under | 6 | 2 | 06/04/19 | | | mg/0.6 mL | the skin (SUBC) | Syringe | | 12 | 2 | | Subcutaneous Syringe | every twelve hours | | | | | | | for 6 doses. | | | | | + + + +---------+ + + | | Take 1 Tab by mouth | 28 Tab | 0 | 06/04/19 | | | trimethoprim-sulfame | two times daily for | | | 12 | 2 | | thoxazole 160-800 mg | 14 days. | | | | | | Oral Tablet | | | | | | + + + +---------+ + + documented as of this encounter Progress Notes Elyse An RN - 06/03/2011 12:15 PM PDTPatient Name: CLAY MORIN Date of : 1945 CARE COORDINATION ROUNDING NOTE Care Coordination rounds held. Disciplines attending included: Log Buncher,, Drywall Foreman,, Bedside RN,, event planning intern,, Physician, Dr. Winn, Physician's Net C Developer,, Physical Therapist,, Hogshead Roller,, Pharmacist PERTINENT FINDINGS Notes: Pt will DC home when IRN >1.8; with follow up from PCP Dr. Kraft for anti-coag upon DC. Electronically signed by:Elyse An Position:Log Buncher Pager ID:[phone] Electronically signed on:2011-06-03 1215Electronically signed by Elyse An RN at 12:15 PM PDTWacelola Piero - 06/03/2011 7:20 AM PDTFormatting of this note might be di fferent from the original. Cardiothoracic Surgery Progress Note POD # 1 Past 24 hour Events Coumadin resumed Subjective Denies pain, slept well Objective: Last Vitals: BP 102/55 | Pulse 95 | Temp 36.5 C (97.7 F) | RR 16 | Ht 177.8 cm (5' 10") | Wt 64.5 kg (142 lb 3.2 oz) | SpO2 99% | BMI 20.40 kg/(m^2) Intake/Output Summary (Last 24 hours) at 06/03/11 0720 Last data filed at 06/03/11 0600 Gross per 24 hour Intake 1530 ml Output 945 ml Net 585 ml Telemetery: A-fib (90's) Neuro: WNL CV: s1-s2 irreg-irreg Resp: cta GI Skin: pink,warm, dry. Sternal incision dressing is c,d,i Chemistries: Last 72 Hours (or 3 results): Recent Labs Basename 06/01/11 1505 05/31/11 2049 NA 136 135 K 4.2 4.9 CL 110* 109* BICARB 22 22 BUN 19 23* CR 1.34* 1.48* CA 8.1* 8.5* MG -- -- PO4 3.4 3.5 CBC with diff last 72 hours (or 3 results) Recent Labs Basename 05/31/11 2049 WBC 4.7 HB 9.7* HCT 28.4* PLT 207 NEUTROPERC 60 BANDPCT -- LYMPHPERC 21 MONOPERC 15* BASOPERC 0 EOSPERC 4* Chest x-ray: Assessment/Plan: Operative Issues: S/p epicardial wire d/c -- low drain output, (15mL past 8 hours), likely d/c this afternoon Other issues: Mechanical valve prophylaxis--- heparin bridge to start this AM. Continue qhs coumadin 5 m g A-fib (chronic)--- rate controlled on metoprolol. On coumadin Home when INR >1.8 (Electronically Signed) Piero Goel PA-C [facility] Cardiac Surgery Ceci Handy PA-C - 2011 4:37 PM PDTPost-procedure note: Pt underwent small subxiphoid incision. Two pacing wires were removed. No complication. Pt to recover in PACU then back to 11K. Restart coumadin tonight. Start Heparin gtt tomorrow @ 0900. CECI ARAYA PA-C Division of Cardiothoracic Surgery [facility] [place] Mail Code [id number] [facility] [address] Tiburcio Panda MD - 06/01/2011 5:58 PM PDTCT Surgery Staff I Interviewed and examined the patient with the team. I agree with Mahamed Cuellar's assessment and plan and have edited the note where appropriate. Imaging and chart reviewed Mccabe for pacing wire extraction later today. PARQ with patient and his family. He wishes to proceed and has signed his consent. Heparin .48 I spent 35 minutes with the patient, over 50% of this time was counseling and coordinating care focused on the rationale for wire removal, the risks, the alternatives, and the anticip ated duration of hospitalization. Electronically signed Tiburcio Chung MD, FACS, FACC Theater Education Teacher, Department of Surgery Clinical Director, Adult Cardiac Surgery Co-Director, Multidisciplinary Heart Valve [facility] | [email or web address] [email or web address] ambriz Martinez Nagy 0 06/01/2011 4:07 PM PDTTransthoracic echocardiogram completed. Final report to follow. Lety Mac PA - 06/01/2011 1:02 PM PDTCTS NOTE S: No complaints Slept well O: BP 89/54 | Pulse 94 | Temp 36.8 C (98.2 F) | RR 16 | Ht 177.8 cm (5' 10") | Wt 64.5 kg (142 lb 3.2 oz) | SpO2 99% | BMI 20.40 kg/(m^2) GA: supine, comfortable CV: tachy, irreg irreg A/P: Mr. Morin is a 66y/o M admitted for heparin bridge (has [place] AV/MV) prior to retained epic ardial pacing wire removal. 1. Protruding pacemaker lead --to OR tomorrow --PARQ to be held and consent signed c Dr. Chung this evening 2. Afib/flutter c RVR --hemodynamically stable and asymptomatic --cont scheduled PO and prn IV metop --TTE today 3. Elevated creat --good UOP. Will recheck this pm 4. Anemia --continue iron supplement Electronically signed by: Lety MARISCAL PAYakovC Department of Surgery | Division of Cardiothoracic Surgery Elyse Pozo R N - 06/01/2011 11:48 AM PDTPatient Name: CLAY MORIN Date of : 1945 CASE MANAGEMENT INITIAL ASSESSMENT SOURCE OF INFORMATION Assessment information came from: patient interview, chart review REASON FOR ADMISSION The circumstances leading to hospitalization are as follows: Notes: Pacer wire removal PRIOR HOME SERVICES IN PLACE Names of agencies providing services include the following: Notes: attended out pt PT at this time LIVING SITUATION AND SUPPORT SYSTEM Prior to admission, the living situation and support system included: [facility] Spouse or Domestic Partner Kai [phone] FUNCTIONAL STATUS Patient's baseline functional status prior to coming to admission: Requires assistance/assistive device POTENTIAL FOR READMISSION My assessment indicates the following high risk factors for readmission apply: Age > 65 years, Male, Other risk factor for readmission Multiple hospitalizations with complications. TRANSPORTATION AVAILABLE Patient's plan for discharge transportation: Family or friends to transport ANTICIPATED DISCHARGE NEEDS The initial plan was discussed with: Patient OTHER PERTINENT ASSESSMENT AND PLANNING INFORMATION * Notes: This pt is well know to this CM, plan to DC home with his , CM will arrange any additional needs that may arise. Electronically signed by:Elyse An Position:Log Buncher Pager ID:[phone] Electronically signed on:2011-06-01 1148Electronically signed by Elyse An RN at 11:48 AM PDTdocumented in this encounter Plan of Treatment + +---------+--------+ + + | Name | Type | Priori | Associated Diagnoses | Date/Time | | | | ty | | | + +---------+--------+ + + | FLUOROSCOPY OR <= 1 | Imaging | Routin | | 06/02/2011 4:09 PM | | HR | | e | | PDT | + +---------+--------+ + + + +---------+--------+ + + | Name | Type | Priori | Associated Diagnoses | Order Schedule | | | | ty | | | + +---------+--------+ + + | FLUOROSCOPY OR <= 1 | Imaging | Routin | | One Time for 1 | | HR | | e | | Occurrences starting | | | | | | 06/02/2011 until | | | | | | 06/02/2011 | + +---------+--------+ + + | X-RAY PORTABLE CHEST | Imaging | Routin | | One Time for 1 | | 1 VIEW | | e | | Occurrences starting | | | | | | 06/03/2011 until | | | | | | 06/03/2011 | + +---------+--------+ + + documented as of this encounter Procedures + +--------+ + + + | Procedure Name | Priori | Date/Time | Associated Diagnosis | Comments | | | ty | | | | + +--------+ + + + | PROCEDURE NOTE | Routin | 04/25/2015 | | Results for this | | | e | 3:19 AM | | procedure are in the | | | | PST | | results section. | + +--------+ + + + | PROCEDURE NOTE | Routin | 04/25/2015 | | Results for this | | | e | 3:16 AM | | procedure are in the | | | | PST | | results section. | + +--------+ + + + | HEPARIN, EITHER | Urgent | 06/04/2011 | | Results for this | | STANDARD / LMW, | | 6:44 AM | | procedure are in the | | BLOOD | | PDT | | results section. | + +--------+ + + + | INR | Urgent | 06/04/2011 | | Results for this | | | | 6:44 AM | | procedure are in the | | | | PDT | | results section. | + +--------+ + + + | HEPARIN, EITHER | Urgent | 06/03/2011 | | Results for this | | STANDARD / LMW, | | 10:01 PM | | procedure are in the | | BLOOD | | PDT | | results section. | + +--------+ + + + | HEPARIN, EITHER | Routin | 06/03/2011 | | Results for this | | STANDARD / LMW, | e | 2:15 PM | | procedure are in the | | BLOOD | | PDT | | results section. | + +--------+ + + + | X-RAY CHEST 2 VIEW | Urgent | 06/03/2011 | | Results for this | | | | 6:39 AM | | procedure are in the | | | | PDT | | results section. | + +--------+ + + + | INR | Urgent | 06/03/2011 | | Results for this | | | | 12:05 AM | | procedure are in the | | | | PDT | | results section. | + +--------+ + + + | CBC ONLY | Urgent | 06/02/2011 | | Results for this | | | | 4:36 PM | | procedure are in the | | | | PDT | | results section. | + +--------+ + + + | PACEMAKER LEAD | Electi | 06/02/2011 | Endocarditis, | | | EXTRACTION | ve | 4:23 PM | valve unspecified, | | | | Surgic | PDT | unspecified cause | | | | al | | | | + +--------+ + + + +---+--------+ | | | | | Specia | | | l | | | Needs | | | PT TO | | | ADMIT | | | ON | | | 05/30/ | | | FOR | | | | | | HEPARI | | | N | | | BRIDGI | | | NG. | | | THIS | | | WILL | | | BE A | | | DAY | | | PROCED | | | URE | | | AND | | | WILL | | | NEED | | | 11K | | | POST | | | BUT | | | WILL | | | LIKELY | | | BE | | | ESCALA | | | YULIYA TO | | | ICU | | | POST. | +---+--------+ + +--------+ +---+ + | X-RAY CHEST 1 VIEW | Routin | 06/02/2011 | | Results for this | | | e | 4:09 PM | | procedure are in the | | | | PDT | | results section. | + +--------+ +---+ + | PRODUCT - RED CELLS | Routin | 06/02/2011 | | Results for this | | LEUKOREDUCED | e | 7:28 AM | | procedure are in the | | | | PDT | | results section. | + +--------+ +---+ + | TYPE AND SCREEN | Routin | 06/02/2011 | | Results for this | | | e | 7:28 AM | | procedure are in the | | | | PDT | | results section. | + +--------+ +---+ + | HEPARIN, EITHER | Urgent | 06/02/2011 | | Results for this | | STANDARD / LMW, | | 7:00 AM | | procedure are in the | | BLOOD | | PDT | | results section. | + +--------+ +---+ + | X-RAY CHEST 2 VIEW | Routin | 06/01/2011 | | Results for this | | | e | 9:29 PM | | procedure are in the | | | | PDT | | results section. | + +--------+ +---+ + | RENAL FUNCTION SET | Routin | 06/01/2011 | | Results for this | | (NA,K,CL,CO2,BUN,CRE | e | 3:05 PM | | procedure are in the | | AT,GLUC,CA,PHOS,ALB | | PDT | | results section. | | ) | | | | | + +--------+ +---+ + | TYPE AND SCREEN | Routin | 06/01/2011 | | Results for this | | | e | 6:18 AM | | procedure are in the | | | | PDT | | results section. | + +--------+ +---+ + | HEPARIN, EITHER | Routin | 06/01/2011 | | Results for this | | STANDARD / LMW, | e | 5:32 AM | | procedure are in the | | BLOOD | | PDT | | results section. | + +--------+ +---+ + | TRANSTHORACIC | Routin | 06/01/2011 | | Results for this | | ECHOCARDIOGRAM, | e | 12:00 AM | | procedure are in the | | ADULT | | PDT | | results section. | + +--------+ +---+ + | 12 LEAD ECG | Routin | 05/31/2011 | | Results for this | | | e | 8:58 PM | | procedure are in the | | | | PDT | | results section. | + +--------+ +---+ + | DIFFERENTIAL | Routin | 05/31/2011 | | Results for this | | | e | 8:49 PM | | procedure are in the | | | | PDT | | results section. | + +--------+ +---+ + | INR | Routin | 05/31/2011 | | Results for this | | | e | 8:49 PM | | procedure are in the | | | | PDT | | results section. | + +--------+ +---+ + | CBC, WITH | Routin | 05/31/2011 | | Results for this | | DIFFERENTIAL | e | 8:49 PM | | procedure are in the | | | | PDT | | results section. | + +--------+ +---+ + | RENAL FUNCTION SET | Routin | 05/31/2011 | | Results for this | | (NA,K,CL,CO2,BUN,CRE | e | 8:49 PM | | procedure are in the | | AT,GLUC,CA,PHOS,ALB | | PDT | | results section. | | ) | | | | | + +--------+ +---+ + documented in this encounter Results PROCEDURE NOTE (04/25/2015 3:19 AM PST)PROCEDURE NOTE (04/25/2015 3:16 AM PST) + + | Transcriptions | + + | Lorena, Faculty - 06/09/2011 1:21 PM PDT | + + INR (06/04/2011 6:44 AM PDT) + + + + + + | Component | Value | Ref Range | Performed | Pathologist | | | | | At | Signature | + + + + + + | INR | 1.13Comment: | 0.90 - 1.20 INR | [facility] | | | | INR Therapeutic ranges | | DEPARTMENT | | | | for full | | OF | | | | anticoagulation: | | PATHOLOGY | | | | INR for Venous | | | | | | Thromboembolism | | | | | | (2.0-3.0) | | | | | | INR INR for most | | | | | | patients with mech. | | | | | | valves (2.5-3.5) | | | | | | INR | | | | + + + + + + + + | Specimen | + + | Blood - Blood | + + + + + + + | Performing | Address | City/State/Zipcode | Phone Number | | Organization | | | | + + + + + | [facility] DEPARTMENT OF | [address] | [place] [address] | | | PATHOLOGY | [address] | | | + + + + + HEPARIN, EITHER STANDARD / LMW, BLOOD (06/04/2011 6:44 AM PDT) + + + + + + | Component | Value | Ref Range | Performed | Pathologist | | | | | At | Signature | + + + + + + | HEPARIN, | 0.23Comment: Heparin | U/mL | [facility] | | | STD LMW | Type: Unfractionated | | DEPARTMENT | | | | (Standard) Heparin | | OF | | | | Heparin, Either | | PATHOLOGY | | | | STD/LMW - Therapeutic | | | | | | Ranges: | | | | | | Heparin, Unfractionated: | | | | | | 0.35 - 0.70 U/mL | | | | | | Enoxaparin, LMWH: | | | | | | 0.70 - 1.20 | | | | | | U/mL | | | | | | Dalteparin, LMWH: | | | | | | 0.70 - 1.20 U/mL | | | | | | Tinzaparin, | | | | | | LMWH: | | | | | | Therapeutic range not | | | | | | established. | | | | | | | | | | | | Preliminary | | | | | | studies suggest range | | | | | | | | | | | | | | | | | | similar to dalteparin. | | | | | | Clinical | | | | | | | | | | | | correlation | | | | | | required. | | | | | | Heparin levels may be | | | | | | unreliable for: | | | | | | | | | | | | Total | | | | | | bilirubin >6.6 mg/dL | | | | | | | | | | | | | | | | | | Triglycerides >360 mg/dL | | | | | | | | | | | | | | | | | | or moderate to gross | | | | | | hemolysis | | | | + + + + + + + + | Specimen | + + | Blood - Blood | + + + + + + + | Performing | Address | City/State/Zipcode | Phone Number | | Organization | | | | + + + + + | [facility] | [address] | [place] [address] | | | PATHOLOGY | [address] | | | + + + + + HEPARIN, EITHER STANDARD / LMW, BLOOD (06/03/2011 10:01 PM PDT) + + + + + + | Component | Value | Ref Range | Performed | Pathologist | | | | | At | Signature | + + + + + + | HEPARIN, | 0.11Comment: Heparin | U/mL | [facility] | | | STD LMW | Type: Unfractionated | | DEPARTMENT | | | | (Standard) Heparin | | OF | | | | Heparin, Either | | PATHOLOGY | | | | STD/LMW - Therapeutic | | | | | | Ranges: | | | | | | Heparin, Unfractionated: | | | | | | 0.35 - 0.70 U/mL | | | | | | Enoxaparin, LMWH: | | | | | | 0.70 - 1.20 | | | | | | U/mL | | | | | | Dalteparin, LMWH: | | | | | | 0.70 - 1.20 U/mL | | | | | | Tinzaparin, | | | | | | LMWH: | | | | | | Therapeutic range not | | | | | | established. | | | | | | | | | | | | Preliminary | | | | | | studies suggest range | | | | | | | | | | | | | | | | | | similar to dalteparin. | | | | | | Clinical | | | | | | | | | | | | correlation | | | | | | required. | | | | | | Heparin levels may be | | | | | | unreliable for: | | | | | | | | | | | | Total | | | | | | bilirubin >6.6 mg/dL | | | | | | | | | | | | | | | | | | Triglycerides >360 mg/dL | | | | | | | | | | | | | | | | | | or moderate to gross | | | | | | hemolysis | | | | + + + + + + + + | Specimen | + + | Blood - Blood | + + + + + + + | Performing | Address | City/State/Zipcode | Phone Number | | Organization | | | | + + + + + | [facility] DEPARTMENT OF | [address] | [place] [address] | | | PATHOLOGY | [address] | | | + + + + + HEPARIN, EITHER STANDARD / LMW, BLOOD (06/03/2011 2:15 PM PDT) + + + + + + | Component | Value | Ref Range | Performed | Pathologist | | | | | At | Signature | + + + + + + | HEPARIN, | < 0.10Comment: | U/mL | [facility] | | | STD LMW | Heparin, Either | | DEPARTMENT | | | | STD/LMW - Therapeutic | | OF | | | | Ranges: | | PATHOLOGY | | | | Heparin, Unfractionated: | | | | | | 0.35 - 0.70 U/mL | | | | | | Enoxaparin, LMWH: | | | | | | 0.70 - 1.20 | | | | | | U/mL | | | | | | Dalteparin, LMWH: | | | | | | 0.70 - 1.20 U/mL | | | | | | Tinzaparin, | | | | | | LMWH: | | | | | | Therapeutic range not | | | | | | established. | | | | | | | | | | | | Preliminary | | | | | | studies suggest range | | | | | | | | | | | | | | | | | | similar to dalteparin. | | | | | | Clinical | | | | | | | | | | | | correlation | | | | | | required. | | | | | | Heparin levels may be | | | | | | unreliable for: | | | | | | | | | | | | Total | | | | | | bilirubin >6.6 mg/dL | | | | | | | | | | | | | | | | | | Triglycerides >360 mg/dL | | | | | | | | | | | | | | | | | | or moderate to gross | | | | | | hemolysis | | | | + + + + + + + + | Specimen | + + | Blood - Blood | + + + + + + + | Performing | Address | City/State/Zipcode | Phone Number | | Organization | | | | + + + + + | [facility] | [address] | [place] [address] | | | PATHOLOGY | [address] | | | + + + + + X-RAY CHEST 2 VIEW (06/03/2011 6:39 AM PDT) + + + + + + | Component | Value | Ref Range | Performed | Pathologist | | | | | At | Signature | + + + + + + | CHEST, 2 | EXAM: PA and lateral | | | | | VIEWS OR | CHEST. HISTORY:Status | | | | | STEREO | post atrial and mitral | | | | | | valve replacements | | | | | | COMPARISON: 06/01/11. | | | | | | FINDINGS:There is stable | | | | | | elevation of the right | | | | | | hemidiaphragm. Mild | | | | | | rightbasal atelectasis | | | | | | is present. There is | | | | | | no pneumothorax. Tiny | | | | | | leftpleural effusion | | | | | | versus pleural | | | | | | thickening stable. The | | | | | | cardiac andmediastinal | | | | | | contours are stable. | | | | | | Sternal wires are | | | | | | intact. Mitraland | | | | | | aortic valve | | | | | | replacements are noted. | | | | | | IMPRESSION: Stable | | | | | | elevation of the right | | | | | | hemidiaphragm and tiny | | | | | | left | | | | | | pleuraleffusion/pleural | | | | | | thickening. Attending | | | | | | Radiologists: Win Mar | | | | | | Kelechi CrenshawAuthor: | | | | | | Art Srinivasan M.D. I | | | | | | have personally viewed | | | | | | this procedure/exam, | | | | | | reviewed this report,and | | | | | | made changes to it | | | | | | where appropriate. | | | | | | Final/Electronically | | | | | | signed / Win Mar | | | | | | Flower 06/03/2011 | | | | | | 10:25AM | | | | + + + + + + + + | Specimen | + + | | + + + +---------+ + + | Performing | Address | City/State/Zipcode | Phone Number | | Organization | | | | + +---------+ + + | [facility] | | | | | RADIOLOGY | | | | + +---------+ + + INR (06/03/2011 12:05 AM PDT) + + + + + + | Component | Value | Ref Range | Performed | Pathologist | | | | | At | Signature | + + + + + + | INR | 1.13Comment: | 0.90 - 1.20 INR | [facility] | | | | INR Therapeutic ranges | | DEPARTMENT | | | | for full | | OF | | | | anticoagulation: | | PATHOLOGY | | | | INR for Venous | | | | | | Thromboembolism | | | | | | (2.0-3.0) | | | | | | INR INR for most | | | | | | patients with mech. | | | | | | valves (2.5-3.5) | | | | | | INR | | | | + + + + + + + + | Specimen | + + | Blood - Blood | + + + + + + + | Performing | Address | City/State/Zipcode | Phone Number | | Organization | | | | + + + + + | [facility] | [address] | [place] [address] | | | PATHOLOGY | [address] | | | + + + + + CBC ONLY (06/02/2011 4:36 PM PDT) + + + + + + | Component | Value | Ref Range | Performed | Pathologist | | | | | At | Signature | + + + + + + | WHITE CELL | Not Recd | 4.4 - 11.0 K/cu | [facility] | | | COUNT | | mm | DEPARTMENT | | | | | | OF | | | | | | PATHOLOGY | | + + + + + + | RED CELL | Not Recd | 4.50 - 5.90 | [facility] | | | COUNT | | M/cu mm | DEPARTMENT | | | | | | OF | | | | | | PATHOLOGY | | + + + + + + | HEMOGLOBIN | Not Recd | 13.5 - 17.5 | [facility] | | | | | g/dL | DEPARTMENT | | | | | | OF | | | | | | PATHOLOGY | | + + + + + + | HEMATOCRIT | Not Recd | 41.0 - 53.0 % | [facility] | | | | | | DEPARTMENT | | | | | | OF | | | | | | PATHOLOGY | | + + + + + + | MCV | Not Recd | 80.0 - 96.0 fL | [facility] | | | | | | DEPARTMENT | | | | | | OF | | | | | | PATHOLOGY | | + + + + + + | MCHC | Not Recd | 33.4 - 35.5 | [facility] | | | | | g/dL | DEPARTMENT | | | | | | OF | | | | | | PATHOLOGY | | + + + + + + | RDW | Not Recd | 11.5 - 15.0 % | [facility] | | | | | | DEPARTMENT | | | | | | OF | | | | | | PATHOLOGY | | + + + + + + | PLATELET | Not Recd | 150 - 400 K/cu | [facility] | | | COUNT | | mm | DEPARTMENT | | | | | | OF | | | | | | PATHOLOGY | | + + + + + + + + | Specimen | + + | Blood - Blood | + + + + + + + | Performing | Address | City/State/Zipcode | Phone Number | | Organization | | | | + + + + + | [facility] | [address] | [place] [address] | | | PATHOLOGY | [address] | | | + + + + + X-RAY CHEST 1 VIEW (06/02/2011 4:09 PM PDT) + + + + + + | Component | Value | Ref Range | Performed | Pathologist | | | | | At | Signature | + + + + + + | CHEST, 1 | EXAM: Intraoperative | | | | | VIEW | limited lower chest and | | | | | | upper abdomen | | | | | | HISTORY:pacer wire | | | | | | removal COMPARISON: | | | | | | 06/01/11 FINDINGS: | | | | | | Intraoperative AP view | | | | | | demonstrates surgical | | | | | | instrument | | | | | | projectingover a lower | | | | | | thoracic vertebra. | | | | | | Surgical drain | | | | | | noted.Evaluation is | | | | | | otherwise limited due to | | | | | | intraoperative | | | | | | technique. Attending | | | | | | Radiologists: Sarabjit | | | | | | Kelechi KoromaAuthor: | | | | | | Sarabjit Koroma M.D. I | | | | | | have personally viewed | | | | | | this procedure/exam, | | | | | | reviewed this report,and | | | | | | made changes to it | | | | | | where appropriate. | | | | | | Final/Electronically | | | | | | signed / Sarabjit | | | | | | Ga 06/07/2011 14:51 | | | | | | PM | | | | + + + + + + + + | Specimen | + + | | + + + +---------+ + + | Performing | Address | City/State/Zipcode | Phone Number | | Organization | | | | + +---------+ + + | [facility] | | | | | RADIOLOGY | | | | + +---------+ + + PRODUCT- RED CELLS LEUKOREDUCED (06/02/2011 7:28 AM PDT) + + + + + + | Component | Value | Ref Range | Performed | Pathologist | | | | | At | Signature | + + + + + + | PRODUCT | -1 RED BLOOD | | [facility] | | | DESCRIPTION | CELLS,ADENINE-SALINE | | DEPARTMENT | | | | ADDED,LEUKOCYTES REDUCED | | OF | | | | | | PATHOLOGY | | + + + + + + | PRODUCT | [id number] | | [facility] | | | UNIT # | | | DEPARTMENT | | | | | | OF | | | | | | PATHOLOGY | | + + + + + + | UNIT ABO | A | | [facility] | | | | | | DEPARTMENT | | | | | | OF | | | | | | PATHOLOGY | | + + + + + + | UNIT RH | POS | | [facility] | | | | | | DEPARTMENT | | | | | | OF | | | | | | PATHOLOGY | | + + + + + + | STATUS OF | Returned to Blood Bank | | [facility] | | | UNIT | | | DEPARTMENT | | | | | | OF | | | | | | PATHOLOGY | | + + + + + + | BLOOD | [id number] | | [facility] | | | PRODUCT | | | DEPARTMENT | | | CODE | | | OF | | | | | | PATHOLOGY | | + + + + + + + + | Specimen | + + | | + + + + + + + | Performing | Address | City/State/Zipcode | Phone Number | | Organization | | | | + + + + + | [facility] | [address] | [place] [address] | | | PATHOLOGY | [address] | | | + + + + + TYPE AND SCREEN (06/02/2011 7:28 AM PDT) + + + + + + | Component | Value | Ref Range | Performed | Pathologist | | | | | At | Signature | + + + + + + | ABO GROUP | A | | [facility] | | | | | | DEPARTMENT | | | | | | OF | | | | | | PATHOLOGY | | + + + + + + | RH TYPE | Positive | | [facility] | | | | | | DEPARTMENT | | | | | | OF | | | | | | PATHOLOGY | | + + + + + + | Antibody | Negative | | [facility] | | | Screen | | | DEPARTMENT | | | | | | OF | | | | | | PATHOLOGY | | + + + + + + + + | Specimen | + + | Blood - Blood | + + + + + + + | Performing | Address | City/State/Zipcode | Phone Number | | Organization | | | | + + + + + | [facility] | [address] | [place] [address] | | | PATHOLOGY | [address] | | | + + + + + HEPARIN, EITHER STANDARD / LMW, BLOOD (06/02/2011 7:00 AM PDT) + + + + + + | Component | Value | Ref Range | Performed | Pathologist | | | | | At | Signature | + + + + + + | HEPARIN, | 0.17Comment: | U/mL | [facility] | | | STD LMW | Heparin, Either STD/LMW | | DEPARTMENT | | | | - Therapeutic Ranges: | | OF | | | | Heparin, | | PATHOLOGY | | | | Unfractionated: 0.35 - | | | | | | 0.70 U/mL | | | | | | Enoxaparin, LMWH: | | | | | | 0.70 - 1.20 U/mL | | | | | | Dalteparin, | | | | | | LMWH: 0.70 - | | | | | | 1.20 U/mL | | | | | | Tinzaparin, LMWH: | | | | | | Therapeutic range | | | | | | not established. | | | | | | | | | | | | | | | | | | Preliminary studies | | | | | | suggest range | | | | | | | | | | | | similar | | | | | | to dalteparin. | | | | | | Clinical | | | | | | | | | | | | correlation | | | | | | required. | | | | | | Heparin levels may be | | | | | | unreliable for: | | | | | | | | | | | | Total | | | | | | bilirubin >6.6 mg/dL | | | | | | | | | | | | | | | | | | Triglycerides >360 mg/dL | | | | | | | | | | | | | | | | | | or moderate to gross | | | | | | hemolysis | | | | + + + + + + + + | Specimen | + + | Blood - Blood | + + + + + + + | Performing | Address | City/State/Zipcode | Phone Number | | Organization | | | | + + + + + | [facility] | [address] | [place] [address] | | | PATHOLOGY | [address] | | | + + + + + X-RAY CHEST 2 VIEW (06/01/2011 9:29 PM PDT) + + + + + + | Component | Value | Ref Range | Performed | Pathologist | | | | | At | Signature | + + + + + + | CHEST, 2 | STUDY: CHEST 2 VIEWS | | | | | VIEWS [place] | 06/01/11 21:29:00 | | | | | STEREO | COMPARISON: 07/17/10 | | | | | | 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 | | | | | | Status post aVR and | | | | | | MVR. FINDINGS: PA and | | | | | | lateral views of the | | | | | | chest demonstrate mild | | | | | | prosthetic aorticand | | | | | | mitral valves. Median | | | | | | sternotomy wires are | | | | | | present. There is | | | | | | nocardiac enlargement or | | | | | | pulmonary edema. | | | | | | There is mild | | | | | | posterolateralblunting | | | | | | of the left costophrenic | | | | | | angle which could | | | | | | represent a smallamount | | | | | | of pleural fluid or | | | | | | pleural thickening. | | | | | | Right | | | | | | hemidiaphragmelevation | | | | | | persists. There is no | | | | | | pneumothorax. No | | | | | | confluentopacities are | | | | | | evident. IMPRESSION: 1. | | | | | | Small left pleural | | | | | | effusion versus | | | | | | thickening/scarring.2. | | | | | | Right hemidiaphragm | | | | | | elevation. Attending | | | | | | Radiologists: Arya | | | | | | Kelechi JustinAuthor: Arya | | | | | | Kelechi Justin I have | | | | | | personally viewed this | | | | | | procedure/exam, reviewed | | | | | | this report,and made | | | | | | changes to it where | | | | | | appropriate. | | | | | | Final/Electronically | | | | | | sherri / Arya Justin | | | | | | 06/02/2011 10:32 AM | | | | + + + + + + + + | Specimen | + + | | + + + +---------+ + + | Performing | Address | City/State/Zipcode | Phone Number | | Organization | | | | + +---------+ + + | [facility]PARTMENT [facility] | | | | | RADIOLOGY | | | | + +---------+ + + RENAL FUNCTION SET (NA,K,CL,CO2,BUN,CREAT,GLUC,CA,PHOS,ALB ) (06/01/2011 3:05 PM PDT) + + + + + + | Component | Value | Ref Range | Performed | Pathologist | | | | | At | Signature | + + + + + + | GLUCOSE, | 104 (H) | 60 - 99 mg/dL | [facility] | | | PLASMA | | | DEPARTMENT | | | (LAB) | | | OF | | | | | | PATHOLOGY | | + + + + + + | BUN, PLASMA | 19 | 6 - 20 mg/dL | [facility] | | | (LAB) | | | DEPARTMENT | | | | | | OF | | | | | | PATHOLOGY | | + + + + + + | CREATININE | 1.34 (H) | 0.70 - 1.30 | [facility] | | | PLASMA | | mg/dL | DEPARTMENT | | | (LAB) | | | OF | | | | | | PATHOLOGY | | + + + + + + | ALBUMIN, | 3.2 (L) | 3.5 - 4.7 g/dL | [facility] | | | PLASMA | | | DEPARTMENT | | | (LAB) | | | OF | | | | | | PATHOLOGY | | + + + + + + | CALCIUM, | 8.1 (L) | 8.6 - 10.2 | [facility] | | | PLASMA | | mg/dL | DEPARTMENT | | | (LAB) | | | OF | | | | | | PATHOLOGY | | + + + + + + | PHOSPHORUS, | 3.4 | 2.4 - 4.7 mg/dL | [facility] | | | PLASMA | | | DEPARTMENT | | | (LAB) | | | OF | | | | | | PATHOLOGY | | + + + + + + | SODIUM, | 136 | 134 - 143 | [facility] | | | PLASMA | | mmol/L | DEPARTMENT | | | (LAB) | | | OF | | | | | | PATHOLOGY | | + + + + + + | POTASSIUM, | 4.2 | 3.4 - 5.0 | [facility] | | | PLASMA | | mmol/L | DEPARTMENT | | | (LAB) | | | OF | | | | | | PATHOLOGY | | + + + + + + | CHLORIDE, | 110 (H) | 97 - 108 mmol/L | [facility] | | | PLASMA | | | DEPARTMENT | | | (LAB) | | | OF | | | | | | PATHOLOGY | | + + + + + + | TOTAL CO2, | 22 | 22 - 29 mmol/L | [facility] | | | PLASMA | | | DEPARTMENT | | | (LAB) | | | OF | | | | | | PATHOLOGY | | + + + + + + | ANION GAP | 4 | 4 - 11 mmol/L | [facility] | | | | | | DEPARTMENT | | | | | | OF | | | | | | PATHOLOGY | | + + + + + + | ANION | 6 | 4 - 11 mmol/L | [facility] | | | GAP(ALB | | | DEPARTMENT | | | CORRECTED) | | | OF | | | | | | PATHOLOGY | | + + + + + + + + | Specimen | + + | Blood - Blood | + + + + + + + | Performing | Address | City/State/Zipcode | Phone Number | | Organization | | | | + + + + + | [facility] | [address] | [place] [address] | | | PATHOLOGY | [address] | | | + + + + + TYPE AND SCREEN (06/01/2011 6:18 AM PDT) + + + + + + | Component | Value | Ref Range | Performed | Pathologist | | | | | At | Signature | + + + + + + | ABO GROUP | A | | [facility] | | | | | | DEPARTMENT | | | | | | OF | | | | | | PATHOLOGY | | + + + + + + | RH TYPE | Positive | | [facility] | | | | | | DEPARTMENT | | | | | | OF | | | | | | PATHOLOGY | | + + + + + + | Antibody | Negative | | [facility] | | | Screen | | | DEPARTMENT | | | | | | OF | | | | | | PATHOLOGY | | + + + + + + + + | Specimen | + + | Blood - Blood | + + + + + + + | Performing | Address | City/State/Zipcode | Phone Number | | Organization | | | | + + + + + | [facility] | [address] | [place] [address] | | | PATHOLOGY | [address] | | | + + + + + HEPARIN, EITHER STANDARD / LMW, BLOOD (06/01/2011 5:32 AM PDT) + + + + + + | Component | Value | Ref Range | Performed | Pathologist | | | | | At | Signature | + + + + + + | HEPARIN, | 0.48Comment: | U/mL | [facility] | | | STD LMW | Heparin, Either STD/LMW | | DEPARTMENT | | | | - Therapeutic Ranges: | | OF | | | | Heparin, | | PATHOLOGY | | | | Unfractionated: 0.35 - | | | | | | 0.70 U/mL | | | | | | Enoxaparin, LMWH: | | | | | | 0.70 - 1.20 U/mL | | | | | | Dalteparin, | | | | | | LMWH: 0.70 - | | | | | | 1.20 U/mL | | | | | | Tinzaparin, LMWH: | | | | | | Therapeutic range | | | | | | not established. | | | | | | | | | | | | | | | | | | Preliminary studies | | | | | | suggest range | | | | | | | | | | | | similar | | | | | | to dalteparin. | | | | | | Clinical | | | | | | | | | | | | correlation | | | | | | required. | | | | | | Heparin levels may be | | | | | | unreliable for: | | | | | | | | | | | | Total | | | | | | bilirubin >6.6 mg/dL | | | | | | | | | | | | | | | | | | Triglycerides >360 mg/dL | | | | | | | | | | | | | | | | | | or moderate to gross | | | | | | hemolysis | | | | + + + + + + + + | Specimen | + + | Blood - Blood | + + + + + + + | Performing | Address | City/State/Zipcode | Phone Number | | Organization | | | | + + + + + | [facility] | [address] | [place] [address] | | | PATHOLOGY | [address] | | | + + + + + TRANSTHORACIC ECHOCARDIOGRAM, ADULT (06/01/2011 12:00 AM PDT) + + + | Narrative | Performed At | + + + | | | + + + + + | Transcriptions | + + | Other, Faculty - 06/01/2011 5:20 PM PDT | + + 12 LEAD ECG (05/31/2011 8:58 PM PDT) + + + + + + | Component | Value | Ref Range | Performed | Pathologist | | | | | At | Signature | + + + + + + | VENTRICULAR | 132 | BPM | [facility] | | | RATE | | | OF | | | | | | CARDIOLOGY | | + + + + + + | ATRIAL RATE | 278 | BPM | [facility] | | | | | | OF | | | | | | CARDIOLOGY | | + + + + + + | QRS | 84 | ms | [facility] | | | DURATION | | | OF | | | | | | CARDIOLOGY | | + + + + + + | QT | 312 | ms | [facility] | | | | | | OF | | | | | | CARDIOLOGY | | + + + + + + | QTC | 462 | ms | [facility] | | | | | | OF | | | | | | CARDIOLOGY | | + + + + + + | P AXIS | -87 | degrees | [facility] | | | | | | OF | | | | | | CARDIOLOGY | | + + + + + + | R AXIS | -7 | degrees | [facility] | | | | | | OF | | | | | | CARDIOLOGY | | + + + + + + | T AXIS | 25 | degrees | [facility] | | | | | | OF | | | | | | CARDIOLOGY | | + + + + + + | EKG | Poor data quality, | | [facility] | | | DIAGNOSIS | interpretation may be | | OF | | | | adversely affectedAtrial | | CARDIOLOGY | | | | flutter with variable | | | | | | A-V blockNonspecific ST | | | | | | abnormalityAbnormal | | | | | | ECGConfirmed by | | | | | | GENIE FIERRO ([id number]) on | | | | | | 06/01/2011 9:49:11 PM | | | | + + + + + + + + | Specimen | + + | | + + + + + | Narrative | Performed At | + + + | Please click | [facility] | | on view image for the detailed interpretation from [employer] results. | CARDIOLOGY | + + + + + + + + | Performing | Address | City/State/Zipcode | Phone Number | | Organization | | | | + + + + + | [facility] | [address] | [place], [place] | | | CARDIOLOGY | [address] | [phone] | | + + + + + DIFFERENTIAL (05/31/2011 8:49 PM PDT) + +--------+ + + + | Component | Value | Ref Range | Performed | Pathologist | | | | | At | Signature | + +--------+ + + + | NEUTROPHIL | 60 | 50 - 70 % | [facility] | | | % | | | DEPARTMENT | | | | | | OF | | | | | | PATHOLOGY | | + +--------+ + + + | LYMPHOCYTE | 21 | 18 - 42 % | [facility] | | | % | | | DEPARTMENT | | | | | | OF | | | | | | PATHOLOGY | | + +--------+ + + + | MONOCYTE % | 15 (H) | 2 - 8 % | [facility] | | | | | | DEPARTMENT | | | | | | OF | | | | | | PATHOLOGY | | + +--------+ + + + | EOS % | 4 (H) | 1 - 3 % | [facility] | | | | | | DEPARTMENT | | | | | | OF | | | | | | PATHOLOGY | | + +--------+ + + + | BASO % | 0 | <3 % | [facility] | | | | | | DEPARTMENT | | | | | | OF | | | | | | PATHOLOGY | | + +--------+ + + + | NEUTROPHIL | 2.8 | 1.8 - 7.7 K/cu | [facility] | | | # | | mm | DEPARTMENT | | | | | | OF | | | | | | PATHOLOGY | | + +--------+ + + + | LYMPHOCYTE | 1.0 | 1.0 - 4.8 K/cu | [facility] | | | # | | mm | DEPARTMENT | | | | | | OF | | | | | | PATHOLOGY | | + +--------+ + + + | MONOCYTE # | 0.7 | <0.9 K/cu mm | [facility] | | | | | | DEPARTMENT | | | | | | OF | | | | | | PATHOLOGY | | + +--------+ + + + | EOS # | 0.2 | <0.6 K/cu mm | [facility] | | | | | | DEPARTMENT | | | | | | OF | | | | | | PATHOLOGY | | + +--------+ + + + | BASO # | 0.0 | <0.2 | [facility] | | | | | | DEPARTMENT | | | | | | OF | | | | | | PATHOLOGY | | + +--------+ + + + + + | Specimen | + + | | + + + + + + + | Performing | Address | City/State/Zipcode | Phone Number | | Organization | | | | + + + + + | [facility] | [address] | [place] [address] | | | PATHOLOGY | [address] | | | + + + + + INR (05/31/2011 8:49 PM PDT) + + + + + + | Component | Value | Ref Range | Performed | Pathologist | | | | | At | Signature | + + + + + + | INR | 1.14Comment: | 0.90 - 1.20 INR | [facility] | | | | INR Therapeutic ranges | | DEPARTMENT | | | | for full | | OF | | | | anticoagulation: | | PATHOLOGY | | | | INR for Venous | | | | | | Thromboembolism | | | | | | (2.0-3.0) | | | | | | INR INR for most | | | | | | patients with mech. | | | | | | valves (2.5-3.5) | | | | | | INR | | | | + + + + + + + + | Specimen | + + | Blood - Blood | + + + + + + + | Performing | Address | City/State/Zipcode | Phone Number | | Organization | | | | + + + + + | [facility] | [address] | [place] [address] | | | PATHOLOGY | [address] | | | + + + + + CBC, WITH DIFFERENTIAL (05/31/2011 8:49 PM PDT) + + + + + + | Component | Value | Ref Range | Performed | Pathologist | | | | | At | Signature | + + + + + + | WHITE CELL | 4.7 | 4.4 - 11.0 K/cu | [facility] | | | COUNT | | mm | DEPARTMENT | | | | | | OF | | | | | | PATHOLOGY | | + + + + + + | RED CELL | 3.06 (L) | 4.50 - 5.90 | [facility] | | | COUNT | | M/cu mm | DEPARTMENT | | | | | | OF | | | | | | PATHOLOGY | | + + + + + + | HEMOGLOBIN | 9.7 (L) | 13.5 - 17.5 | [facility] | | | | | g/dL | DEPARTMENT | | | | | | OF | | | | | | PATHOLOGY | | + + + + + + | HEMATOCRIT | 28.4 (L) | 41.0 - 53.0 % | [facility] | | | | | | DEPARTMENT | | | | | | OF | | | | | | PATHOLOGY | | + + + + + + | MCV | 92.9 | 80.0 - 96.0 fL | [facility] | | | | | | DEPARTMENT | | | | | | OF | | | | | | PATHOLOGY | | + + + + + + | MCHC | 34.0 | 33.4 - 35.5 | [facility] | | | | | g/dL | DEPARTMENT | | | | | | OF | | | | | | PATHOLOGY | | + + + + + + | RDW | 16.4 (H) | 11.5 - 15.0 % | [facility] | | | | | | DEPARTMENT | | | | | | OF | | | | | | PATHOLOGY | | + + + + + + | PLATELET | 207 | 150 - 400 K/cu | [facility] | | | COUNT | | mm | DEPARTMENT | | | | | | OF | | | | | | PATHOLOGY | | + + + + + + + + | Specimen | + + | Blood - Blood | + + + + + + + | Performing | Address | City/State/Zipcode | Phone Number | | Organization | | | | + + + + + | [facility] | [address] | [place] [address] | | | PATHOLOGY | [address] | | | + + + + + RENAL FUNCTION SET (NA,K,CL,CO2,BUN,CREAT,GLUC,CA,PHOS,ALB ) (05/31/2011 8:49 PM PDT) + + + + + + | Component | Value | Ref Range | Performed | Pathologist | | | | | At | Signature | + + + + + + | GLUCOSE, | 99 | 60 - 99 mg/dL | [facility] | | | PLASMA | | | DEPARTMENT | | | (LAB) | | | OF | | | | | | PATHOLOGY | | + + + + + + | BUN, PLASMA | 23 (H) | 6 - 20 mg/dL | [facility] | | | (LAB) | | | DEPARTMENT | | | | | | OF | | | | | | PATHOLOGY | | + + + + + + | CREATININE | 1.48 (H) | 0.70 - 1.30 | [facility] | | | PLASMA | | mg/dL | DEPARTMENT | | | (LAB) | | | OF | | | | | | PATHOLOGY | | + + + + + + | ALBUMIN, | 3.6 | 3.5 - 4.7 g/dL | [facility] | | | PLASMA | | | DEPARTMENT | | | (LAB) | | | OF | | | | | | PATHOLOGY | | + + + + + + | CALCIUM, | 8.5 (L) | 8.6 - 10.2 | [facility] | | | PLASMA | | mg/dL | DEPARTMENT | | | (LAB) | | | OF | | | | | | PATHOLOGY | | + + + + + + | PHOSPHORUS, | 3.5 | 2.4 - 4.7 mg/dL | [facility] | | | PLASMA | | | DEPARTMENT | | | (LAB) | | | OF | | | | | | PATHOLOGY | | + + + + + + | SODIUM, | 135 | 134 - 143 | [facility] | | | PLASMA | | mmol/L | DEPARTMENT | | | (LAB) | | | OF | | | | | | PATHOLOGY | | + + + + + + | POTASSIUM, | 4.9 | 3.4 - 5.0 | [facility] | | | PLASMA | | mmol/L | DEPARTMENT | | | (LAB) | | | OF | | | | | | PATHOLOGY | | + + + + + + | CHLORIDE, | 109 (H) | 97 - 108 mmol/L | [facility] | | | PLASMA | | | DEPARTMENT | | | (LAB) | | | OF | | | | | | PATHOLOGY | | + + + + + + | TOTAL CO2, | 22 | 22 - 29 mmol/L | [facility] | | | PLASMA | | | DEPARTMENT | | | (LAB) | | | OF | | | | | | PATHOLOGY | | + + + + + + | ANION GAP | 4 | 4 - 11 mmol/L | [facility] | | | | | | DEPARTMENT | | | | | | OF | | | | | | PATHOLOGY | | + + + + + + | ANION | 5 | 4 - 11 mmol/L | [facility] | | | GAP(ALB | | | DEPARTMENT | | | CORRECTED) | | | OF | | | | | | PATHOLOGY | | + + + + + + + + | Specimen | + + | Blood - Blood | + + + + + + + | Performing | Address | City/State/Zipcode | Phone Number | | Organization | | | | + + + + + | [facility] | [address] | [place] [address] | | | PATHOLOGY | [address] | | | + + + + + documented in this encounter Visit Diagnoses + + | Diagnosis | + + | Endocarditis, valve unspecified, unspecified cause | + + documented in this encounter Administered Medications + +--------+ +------+------+------+ | Medication Order | MAR | Action | Dose | Rate | Site | | | Action | Date | | | | + +--------+ +------+------+------+ | bacitracin-NS IRRIGATION | Given | 06/02/19 | | | | | INTRAPROCEDURE PRN, Starting Wed | | 12 3:37 | | | | | 06/02/11 at 1537, Until Wed | | PM PDT | | | | | 06/02/11 at 1623 | | | | | | + +--------+ +------+------+------+ +---+---+ | | | +---+---+ + +-------+ +-------+---+---+ | bupivacaine (aka | Given | 06/02/19 | 30 mL | | | | MARCAINE,SENSORCAINE) 0.25 % (2.5 | | 12 2:55 | | | | | mg/mL) injection INTRAPROCEDURE | | PM PDT | | | | | PRN, Starting Tue06/02/11 at | | | | | | | 1455, Until Tue06/02/11 at 1623 | | | | | | + +-------+ +-------+---+---+ +---+---+ | | | +---+---+ documented in this encounter
--- OUTSIDE RECORDS SUMMARY | ~2019-01-20 | XMS | Encounter Summary ---
Demographics + + + | Address | [address] | | | [place] [address] | + + + | Home Phone | | + + + | Preferred Language | Unknown | + + + | Marital Status | | + + + | Adventism Affiliation | MET | + + + | Race | White | + + + | Ethnic Group | Not or | + + + Author + + + | Author | [facility] | + + + | Organization | [facility] | + + + | Address | Unknown | + + + | Phone | Unavailable | + + + Support + + + + + | Name | Relationship | Address | Phone | + + + + + | Marnie Osorio | ECON | [address] | | | | | [place], [place] | | | | | [address] | | + + + + + | Zoey Marie | ECON | Unknown | | + + + + + | Dionne Alba | ECON | Unknown | | + + + + + Care Team Providers + +------+ + | Care Manager Balance Name | Role | Phone | + +------+ + | Vik Kraft DO | PCP | | + +------+ + Encounter Details +--------+ + + + + | Date | Type | Department | Care Team | Description | +--------+ + + + + | 08/30/ | Document-Sc | UNKNOWN DEPARTMENT | Unknown . | | | 2014 | anned | [address] | | | | | | [address] | | | | | | [place], [place] | | | | | | [phone] | | | +--------+ + + + [...]
--- OUTSIDE RECORDS SUMMARY | ~2019-01-20 | XMS | Encounter Summary ---
Demographics + + + | Address | [address] | | | [place] [address] | + + + | Home Phone | | + + + | Preferred Language | Unknown | + + + | Marital Status | | + + + | Jainism Affiliation | MET | + + + | Race | White | + + + | Ethnic Group | Not or | + + + Author + + + | Author | [facility] | + + + | Organization | [facility] | + + + | Address | Unknown | + + + | Phone | Unavailable | + + + Support + + + + + | Name | Relationship | Address | Phone | + + + + + | Marnie Morin | ECON | [address] | | | | | [place], [place] | | | | | [address] | | + + + + + | Zoey Marie | ECON | Unknown | | + + + + + | Dionne Alba | ECON | Unknown | | + + + + + Care Team Providers + +------+ + | Care Memorial Adviser Name | Role | Phone | + [...] Rd | | | | | | [place], [place] | | | | | | [address] | | | +--------+---------+ + + + [...] Course: Mr. Clay Morin was admitted to [facility] on 06/01/2011 for heparin bridge (on warfarin [...] Care Coordination rounds held. Disciplines attending included: Strike Operations Officer,, Advertising Writer,, Bedside RN,, lemon grower,, Physician, Dr. Winn, Physician's Sheet Metal Worker,, Physical Therapist,, Manager Center,, Pharmacist PERTINENT FINDINGS Notes: Pt will DC home when IRN >1.8; with follow up from PCP Dr. Kraft for anti-coag upon DC. Electronically signed by:Elyse An Position:Strike Operations Officer Pager ID:[phone] Electronically signed on:2011-06-03 1215Electronically signed by Elyse [...] INR >1.8 (Electronically Signed) Piero Goel PA-C [facility] Cardiac Surgery Ceci Handy PA-C - 2011 4:37 PM PDTPost-procedure note: Pt underwent small subxiphoid incision. Two pacing wires were removed. No complication. Pt to recover in PACU then back to 11K. Restart coumadin tonight. Start Heparin gtt tomorrow @ 0900. CECI ARAYA PA-C Division of Cardiothoracic Surgery [facility] Mail Code L353 [address] [facility] [address] [address] Tiburcio Panda MD - 06/01/2011 5:58 [...] Electronically signed Tiburcio Chung MD, FACS, FACC Tabular Typist, Department of Surgery Clinical Director, Adult Cardiac Surgery Co-Director, Multidisciplinary Heart Valve Clinic [facility] | [email or web address] ambriz Martinez Nagy 0 06/01/2011 4:07 [...] 66y/o M admitted for heparin bridge (has [facility] AV/MV) prior to retained epic ardial pacing [...] the living situation and support system included: [facility] Spouse or Domestic Partner Kai [phone] FUNCTIONAL STATUS Patient's baseline functional status prior [...] that may arise. Electronically signed by:Elyse An Position:Strike Operations Officer Pager ID:[phone] Electronically signed on:2011-06-01 1148Electronically signed by Elyse [...] 1.13Comment: | 0.90 - 1.20 INR | [facility] | | | | INR Therapeutic ranges [...] | + + + + + | [facility] DEPARTMENT OF | [address] | [place] [address] | | | PATHOLOGY | [address] [...] | + + + + + | [facility] | [address] | [place] [address] | | | PATHOLOGY | [address] [...] DEPARTMENT OF | [address] | [place] [address] | | | PATHOLOGY | [address] [...] HEPARIN, | < 0.10Comment: | U/mL | PRSU | | | STD LMW | Heparin, [...] | + + + + + | [facility] | [address] | [place] [address] | | | PATHOLOGY | [address] [...] | | + +---------+ + + | [facility] DEPARTMENT OF | | | | | RADIOLOGY | | | | + +---------+ + + INR (06/03/2011 12:05 AM PDT) + + + + + + | Component | Value | Ref Range | Performed | Pathologist | | | | | At | Signature | + + + + + + | INR | 1.13Comment: | 0.90 - 1.20 INR | [facility] | | | | INR Therapeutic ranges [...] | + + + + + | [facility] | [address] | [place] [address] | | | PATHOLOGY | [address] [...] | + + + + + | [facility] | [address] | [place] [address] | | | PATHOLOGY | [address] [...] + + + + | PRODUCT | [id number] | | [facility] | | | UNIT [...] + + + + | BLOOD | [id number] | | [facility] | | | PRODUCT [...] | + + + + + | [facility] DEPARTMENT OF | [address] | [place] [address] | | | PATHOLOGY | [address] [...] [facility] DEPARTMENT | [address] | [place] [address] | | | PATHOLOGY | [address] [...] | + + + + + | [facility] | [address] | [place] [address] | | | PATHOLOGY | [address] [...] | | + +---------+ + + | [facility] DEPARTMENT OF | | | | | [...] DEPARTMENT OF | [address] | [place] [address] | | | PATHOLOGY | [address] [...] | + + + + + | [facility] DEPARTMENT | [address] | [place] [address] | | | PATHOLOGY | [address] [...] | HEPARIN, | 0.48Comment: | U/mL | [facility] | | | STD LMW | Heparin, [...] | + + + + + | [facility] | [address] | [place] [address] | | | PATHOLOGY | [address] [...] view image for the detailed interpretation from [facility] [employer] results. | CARDIOLOGY | + + + + + + + + | Performing | Address | City/State/Zipcode | Phone Number | | Organization | | | | + + + + + | [facility] DEPT OF | [address] | [place], [place] | | | CARDIOLOGY | [address] | [address] | | + + + + + [...] | + + + + + | [facility] DEPARTMENT OF | [address] | [place] [address] | | | PATHOLOGY | [address] | | | + + + + + INR (05/31/2011 8:49 PM PDT) + + + + + + | Component | Value | Ref Range | Performed | Pathologist | | | | | At | Signature | + + + + + + | INR | 1.14Comment: | 0.90 - 1.20 INR | [facility] | | | | INR Therapeutic ranges [...] | + + + + + | [facility] | [address] | [place] [address] | | | PATHOLOGY | [address] [...] | + + + + + | [facility] | [address] | [place] [address] | | | PATHOLOGY | [address] [...] | + + + + + | [facility] | [address] | [place] [address] | | | PATHOLOGY | [address] [...]
--- OUTSIDE RECORDS SUMMARY | ~2019-01-20 | XMS | Encounter Summary ---
Demographics + + + | Address | [address] | | | [place] [address] | + + + | Home Phone | | + + + | Preferred Language | Unknown | + + + | Marital Status | | + + + | Faith Affiliation | MET | + + + | Race | White | + + + | Ethnic Group | Not or | + + + Author + + + | Author | [facility] | + + + | Organization | [facility] | + + + | Address | Unknown | + + + | Phone | Unavailable | + + + Support + + + + + | Name | Relationship | Address | Phone | + + + + + | Marnie Osorio | ECON | [address] | | | | | [place], [place] | | | | | [address] | | + + + + + | Zoey Marie | ECON | Unknown | | + + + + + | Dionne Alba | ECON | Unknown | | + + + + + Care Team Providers + +------+ + | Care Hepatologist Name | Role | Phone | + [...] | | unspecified, | CARDIOLOGY | [address], | | | | | unspecified | [address] | [place] | | | | | cause | [place] | [address] | | | | | Procedures | DRIVE [address] | | | | | | RI REM[address] | F | | | | | | [address] | [place], [place] | | | | | | ONE | [address] | | | | | | LD/THORACOTM | Phone: | | | | | | Y RI REMV | [phone] | | | | | | [address] | Fax: | | | | | | TWO | [phone] | | | | | | LD/THORACOTM | | | | | | | Y RI REMV | | | | | | [...] | | | | | | [place], | | | | | | [place] [address] | | | | | | [phone] | | | +--------+---------+ + + + [...] AM of May 30). 4. Arrive at [facility] on Tuesday, May 31, 2011 in the afternoon for admission for anti-coagul ation 5. Tentatively plan surgery on Tuesday. (Electronically Signed) Piero Goel PA-C [facility] Cardiac Surgery documented in this encounter [...] He is a 66 yo man from [place], [place] who presented with MSSA double valve [...] chills, pain. Saw a Cardiac Surgeon in [place], [place] for this. Obtained CT scan which demonstrated retained epicardial wires (no fl uid accumulation) and due to complexity, was referred to [facility] Cardiac Surgery. Has been on/ off antibiotics over the Fall/Winter secondary to development of PNA requiring hospitalizati on in [facility]. Most recently placed on SMX/TMZ for 1 [...] mechanical clicks. No rubs or gallops Extremities: Prue, warm, dry, no peripheral edema . Studies: [...] bridging wi th enoxaparin and admission to [facility] for heparinization prior to surgery. Plan [...] AM of May 30). 4. Arrive at [facility] on Tuesday, May 31, 2011 in the afternoon for admission for anti-coagul ation 5. Tentatively plan surgery on Tuesday. Above discussed with his PCP, Dr. Kraft (Electronically Signed) Piero Goel PA-C [facility] Cardiac Surgery documented in this encounter [...]
--- OUTSIDE RECORDS SUMMARY | ~2019-01-20 | XMS | Encounter Summary ---
Demographics + + + | Address | [address] | | | [place] [address] | + + + | Home Phone | | + + + | Preferred Language | Unknown | + + + | Marital Status | | + + + | Scientology Affiliation | MET | + + + | Race | White | + + + | Ethnic Group | Not or | + + + Author + + + | Author | [facility] | + + + | Organization | [facility] | + + + | Address | Unknown | + + + | Phone | Unavailable | + + + Support + + + + + | Name | Relationship | Address | Phone | + + + + + | Marnie Osorio | ECON | [address] | | | | | [place], [place] | | | | | [address] | | + + + + + | Zoey Marie | ECON | Unknown | | + + + + + | Dionne Alba | ECON | Unknown | | + + + + + Care Team Providers + +------+ + | Care Diploma Dental Assistant Name | Role | Phone | + +------+ + | Vik Kraft DO | PCP | | + +------+ + Encounter Details +--------+ + + + + | Date | Type | Department | Care Team | Description | +--------+ + + + + | 04/05/ | Results | LAB REFERRED TESTS | Other, Faculty | | | 2010 | Only | [address] [facility] | [phone] | | | | | [address] | | | | | | [place], [place] | | | | | | [address] | | | +--------+ + + + [...] DEPT OF | [address] | [place], [place] | | | CARDIOLOGY | [place] | [address] | | + + + + + documented in this encounter Visit Diagnoses Not on filedocumented in this encounter"
--- OUTSIDE RECORDS SUMMARY | ~2019-01-20 | XMS | Clinical Summary ---
Demographics + + + | Address | [address] | | | [place] [address] | + + + | Home Phone | | + + + | Preferred Language | Unknown | + + + | Marital Status | | + + + | Anabaptist Affiliation | MET | + + + [...] [place], [place] | | | | | [address] | | + + + + + | Zoey Marie | ECON | Unknown | | + + + + + | Dionne Alba | ECON | Unknown | | + + + + + Care Team Providers + +------+ + | Care Lean Engineer Name | Role | Phone | + +------+ + | Vik Kraft DO | PCP | | + +------+ + Source Comments [facility] is fully live on both EpicCare Ambulatory and EpicCare InPatient.[facility] Allergies No Known Allergies Medications + + [...] | | | | | | | [address] | | + +--------+ +--------+ + +--------+ [...] scar | | | 2 (Home) | [address] | + +--------+ +--------+ + + Advance Directives + + + + + | Type | Date Recorded | Patient | Explanation | | | | Frit Mixer And Burner | | + + + + + [...] Power of | | | | | Corporate Legal Secretary | | | | + + + [...]
--- OUTSIDE RECORDS SUMMARY | ~2019-01-20 | XMS | Encounter Summary ---
Demographics + + + | Address | [address] | | | [place] [address] | + + + | Home Phone | | + + + | Preferred Language | Unknown | + + + | Marital Status | | + + + | Baptist Affiliation | MET | + + + | Race | White | + + + | Ethnic Group | Not or | + + + Author + + + | Author | [facility] | + + + | Organization | [facility] | + + + | Address | Unknown | + + + | Phone | Unavailable | + + + Support + + + + + | Name | Relationship | Address | Phone | + + + + + | Marnie Osorio | ECON | [address] | | | | | [place], [place] | | | | | [address] | | + + + + + | Zoey Marie | JAZZMINE | Unknown | | + + + + + | Dionne Alba | ECON | Unknown | | + + + + + Care Team Providers + +------+ + | Care Blanchard Grinder Operator Name | Role | Phone | + +------+ + | Vik Kraft DO | PCP | | + +------+ + Reason for Visit + + + | Reason | Comments | + + + | Follow-up visit | | + + + Office Visit - E/M Services (Routine) +--------+--------+ + + + + | Status | Reason | Specialty | Diagnoses / | Referred By | Referred To | | | | | Procedures | Contact | Contact | +--------+--------+ + + + + | Closed | | Cardiac | Diagnoses | Libby, | Sheldon | | | | Surgery | Aortic | Pranav Lemus, | MD Tiburcio | | | | | valve | DO [facility] | [address] [facility] | | | | | disorders | [place] | [address] | | | | | | CARDIOLOGY | [address] [place], | | | | | | [address] | [place] | | | | | | [place] | [address] | | | | | | [address]IVE [address] | | | | | | | [address] | | | | | | | [place] | | | | | | | [address] | | | | | | | Phone: | | | | | | | [phone] | | | | | | | Fax: | | | | | | | [phone] | | +--------+--------+ + + + + Encounter Details +--------+---------+ + + + | Date | Type | Department | Care Team | Description | +--------+---------+ + + + | 05/11/ | Office | Cardiothoracic | Tiburcio Chung, | S/P AVR (aortic | | 2012 | Visit | Surgery at [facility] [address] | MD | valve replacement) | | | | [address] | | (Primary Dx) | | | | Rd Mailcode: L[address] | | | | | | Physician's | | | | | | [place], | | | | | | [place] [address] | | | | | | [phone] | | | +--------+---------+ + + + [...] + + + | Respiratory Rate | - | - | | + [...] + + + documented in this encounter Progress Notes Lety Cuellar PA - 05/11/2012 4:29 PM PSTFormatting of this note might be different f rom the original. Cardiothoracic Surgery Clinic Date of Service: 05/11/2012 Referring Providers: Pranav Souza DO Patient Care Team: Vik Kraft as PCP - General (Family Medicine) Pranav Souza (Internal Medicine) Vik Kraft (Family Medicine) Reason for Visit: Postoperative check Subjective: Mr. Clay Osorio is very well known to our service. 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 He had been doing very very well at home until a month ago when a pustul e reformed at the inferior part of his sternal incision. He was placed on abx and the pustu le finally erupted and drained. It has not returned. Mr. Osorio denies fevers/chills, N/V/ D/C, malaise. He is currently en route to [place] in his RV c his until May. He is still "recovering" but continues to improve. He is currently in Afib - goal is rate control - me toprolol recently increased. The patient's current medications include: Current Medication List Name Sig CEPHALEXIN ORAL Take 300 mg by mouth. CYANOCOBALAMIN (VITAMIN B-12) 1,000 MCG TABLET Take 1,000 mcg by mouth once daily. GABAPENTIN 300 MG CAPSULE Take 300 mg by mouth three times daily. HYDROCODONE-ACETAMINOPHEN 5 MG-325 MG TABLET Take 1-2 Tabs by mouth every four hours as nee ded. Not to exceed 10 tablets per any 24 hour period. (Not to exceed 3250 mg of acetaminophe n from all products per 24 hour period.) IRON, CARBONYL 65 MG TABLET Take by mouth. LEVOTHYROXINE 75 MCG TABLET Take 75 mcg by mouth once daily. METOPROLOL TARTRATE 25 MG TABLET Take 50 mg by mouth two times daily. NITROGLYCERIN SL Place under tongue. PYRIDOXINE 100 MG TABLET Take 200 mg by mouth once daily. WARFARIN 5 MG TABLET Take 5 mg by mouth once daily. Objective: Vital Signs: BP 122/65 | Pulse 79 | Temp (Src) 36.4 C (97.6 F) (Oral) | Wt 71.305 kg (1 57 lb 3.2 oz) | SpO2 82% General: Seated comfortably NAD. Chest: CTAB no wheezes/rhonchi/rales Skin: pink, warm, and dry. Well healed midline scar from sterno-clavicular junction to bel ow umbilicus. Small ~1mm diameter raised soft lump - not fluctuant, not erythematous, not p ainful to palp. Cardiovascular: irreg irreg, tachy rate 100s. Mult mechanical clicks. No extremtiy edema . 2+ radial pulses. GI: NTND, +BS Studies: Lab Results Component Value Date INRPT 2.01* 05/11/2012 Assessment/Plan: In summary, Mr. Osorio is continuing to recover very well. We will certainly see him shoul d he have a recurrence of the pustule in his sternal incision, and he knows to call if it be comes an issues. We are very happy at his continued recovery from his endocarditis and very long, drawn out hospitalization. Electronically signed by: Lety MARISCAL PA-C Department of Surgery | Division of Cardiothoracic Surgery documented in this encounter Plan of Treatment Not on filedocumented as of this encounter Procedures + +--------+ + + + | Procedure Name | Priori | Date/Time | Associated Diagnosis | Comments | | | ty | | | | + +--------+ + + + | OUTSIDE CARDIOLOGY | | 02/24/2012 | | Results for this | | [...] + + + + + | [facility] | [address] | [place] [address] | | | DAISY AQUINO | [address] | | | + + + + + OUTSIDE CARDIOLOGY (02/24/2012 12:00 AM PST) + + + | Narrative | Performed At | + + + | | | | | | + + + + + | Procedure Note | + + | Angy Carrillo - 05/20/2012 8:39 AM PST | + + documented in this encounter Visit Diagnoses + + | Diagnosis | + + | S/P AVR (aortic valve replacement) - Primary Heart valve replaced by other means | + + documented in this encounter
--- OUTSIDE RECORDS SUMMARY | ~2019-01-20 | XMS | Encounter Summary ---
Demographics + + + | Address | [address] | | | [place] [address] | + + + | Home Phone | | + + + | Preferred Language | Unknown | + + + | Marital Status | | + + + | Spiritism Affiliation | MET | + + + | Race | White | + + + | Ethnic Group | Not or | + + + Author + + + | Author | [facility] | + + + | Organization | [facility] | + + + | Address | Unknown | + + + | Phone | Unavailable | + + + Support + + + + + | Name | Relationship | Address | Phone | + + + + + | Marnie Morin | ECON | [address] | | | | | [place], [place] | | | | | [address] | | + + + + + | Zoey Marie | ECON | Unknown | | + + + + + | Dionne Alba | ECON | Unknown | | + + + + + Care Team Providers + +------+ + | Care Family Service Worker Name | Role | Phone | + +------+ + | Vik Kraft DO | PCP | | + +------+ + Reason for Referral Diagnostic Testing (Routine) +--------+--------+ + + + + | Status | Reason | Specialty | Diagnoses / | Referred By | Referred To | | | | | Procedures | Contact | Contact | +--------+--------+ + + + + | Closed | | Cardiology | Procedures | Azarbal, | Car Echo | | | | | | MAHAMED Mcgovern | [facility] [address] | | | | | TRANSTHORACI | [address] | [address] | | | | | C | [address] | Samantha Vizcarra | | | | | ECHOCARDIOGR | Samantha Vizcarra | Mailcode: | | | | | AM, ADULT | [place], [place] | [address] | | | | | | [address] | [address] | | | | | | Phone: | Building | | | | | | [phone] | [place], [place] | | | | | | Fax: | [address] | | | | | | [phone] | Phone: | | | | | | | [phone] | +--------+--------+ + + + + Reason for Visit AUTH/CERT (Routine) +--------+--------+ [...] | +--------+ + + + + | 05/30/ | Hospital | [facility] [address] | Tiburcio Chung, | | | 2011 - | Encounter | [address] | | | | | | [id number] [facility] | | | | 06/03/ | [facility] | | | | 2011 | | [place] [address] | | | | | | [phone] | | | +--------+ + + + [...] Course: Mr. Clay Morin was admitted to [facility] on 06/01/2011 for heparin bridge (on [...] Condition: good Discharging Physician: Electronically signed by: JEFE ReddingC Department of Surgery | Division of Cardiothoracic [...] by | 20 Tab | 0 | /16/ | | | HYDROcodone-acetamin | mouth every [...] Care Coordination rounds held. Disciplines attending included: Reversing Mill Roller,, Special Loan Officer,, Bedside RN,, activities officer,, Physician, Dr. Winn, Physician's Automation Test Developer,, Physical Therapist,, Lens Engraver,, Pharmacist PERTINENT FINDINGS Notes: Pt will DC home when IRN >1.8; with follow up from PCP Dr. Kraft for anti-coag upon DC. Electronically signed by:Elyse An Position:Reversing Mill Roller Pager ID:[phone] Electronically signed on:2011-06-03 1215Electronically signed by Elyse An RN at 12:15 PM PDTWacekPiero - 06/03/2011 7:20 AM PDTFormatting of this [...] hours (or 3 results) Recent Labs Basename 05/31/112048 WBC 4.7 HB 9.7* HCT 28.4* PLT [...] INR >1.8 (Electronically Signed) Piero Goel PA-C [facility] Cardiac Surgery Ceci Handy PA-C - 2011 4:37 PM PDTPost-procedure note: Pt underwent small subxiphoid incision. Two pacing wires were removed. No complication. Pt to recover in PACU then back to 11K. Restart coumadin tonight. Start Heparin gtt tomorrow @ 0900. CECI ARAYA PA-C Division of Cardiothoracic Surgery [facility] Mail Code [id number] [facility] [address] Tiburcio Panda MD - 06/01/2011 [...] Electronically signed Tiburcio Chung MD, FACS, FACC Application Development Director, Department of Surgery Clinical Director, Adult Cardiac Surgery Co-Director, Multidisciplinary Heart Valve Clinic [facility] | [email or web address], Thuy L - 0 06/01/2011 4:07 PM PDTTransthoracic echocardiogram completed. [...] 66y/o M admitted for heparin bridge (has [facility] AV/MV) prior to retained epic ardial pacing wire removal. 1. Protruding pacemaker lead --to OR tomorrow --PARQ to be held and consent signed c Dr. Chung this evening 2. Afib/flutter c RVR --hemodynamically stable and asymptomatic --cont scheduled PO and prn IV metop --TTE today 3. Elevated creat --good UOP. Will recheck this pm 4. Anemia --continue iron supplement Electronically signed by: eLty MARISCAL PAYakovC Department of Surgery | Division [...] the living situation and support system included: Wtih Spouse or Domestic Partner Geramauricio [phone] FUNCTIONAL STATUS Patient's baseline functional status prior [...] that may arise. Electronically signed by:Elyse An Position:Reversing Mill Roller Pager ID:[phone] Electronically signed on:2011-06-01 1148Electronically signed by Elyse [...] | | | 05/30/ | | | 12 FOR | | | | | | [...] | + + | Other, Faculty - 06/09/2011 1:21 PM PDT | + + INR (06/04/2011 6:44 AM PDT) + + + + + + | Component | Value | Ref Range | Performed | Pathologist | | | | | At | Signature | + + + + + + | INR | 1.13Comment: | 0.90 - 1.20 INR | [facility] | | | | INR Therapeutic ranges [...] | + + + + + | [facility] | [address] | [place] [address] | | | PATHOLOGY | [address] [...] | + + + + + | [facility] | [address] | [place] [address] | | | PATHOLOGY | [address] [...] | + + + + + | [facility] | [address] | [place] [address] | | | PATHOLOGY | [address] [...] HEPARIN, | < 0.10Comment: | U/mL | [facility] | | | [...] | + + + + + | [facility] | [address] | [place] [address] | | | PATHOLOGY | [address] [...] | | + +---------+ + + | [facility] DEPARTMENT OF | | | | | RADIOLOGY | | | | + +---------+ + + INR (06/03/2011 12:05 AM PDT) + + + + + + | Component | Value | Ref Range | Performed | Pathologist | | | | | At | Signature | + + + + + + | INR | 1.13Comment: | 0.90 - 1.20 INR | [facility] | | | | INR Therapeutic ranges [...] | + + + + + | [facility] DEPARTMENT OF | [address] | [place] [address] | | | PATHOLOGY | [address] [...] | + + + + + | [facility] | [address] | [place] [address] | | | PATHOLOGY | [address] [...] + + + + | PRODUCT | [id number] | | [facility] | | | UNIT [...] + + + + | BLOOD | [id number] | | [facility] | | | PRODUCT [...] | + + + + + | [facility] | [address] | [place] [address] | | | PATHOLOGY | [address] [...] | + + + + + | [facility] DEPARTMENT | [address] | [place] [address] | | | PATHOLOGY | [address] [...] | + + + + + | [facility] | [address] | [place] [address] | | | PATHOLOGY | [address] [...] | | | | | signed / Arya Justin | | | | [...] + | [facility] DEPARTMENT OF | [address] | [place] [address] | | | PATHOLOGY | [address] [...] | + + + + + | [facility] DEPARTMENT OF | [address] | [place] [address] | | | PATHOLOGY | [address] [...] | HEPARIN, | 0.48Comment: | U/mL | [facility] | | | [...] | + + + + + | [facility] | [address] | [place] [address] | | | PATHOLOGY | [address] [...] + + + | Please click | [facility] DEPT OF | | on view image for the detailed interpretation from [employer] results. | CARDIOLOGY | + + + + + + + + | Performing | Address | City/State/Zipcode | Phone Number | | Organization | | | | + + + + + | [facility] DEPT OF | [address] | [place], [place] | | | CARDIOLOGY | [address] | [address] | | + + + + + [...] + + | [facility] DEPARTMENT OF | [address] | [place] [address] | | | PATHOLOGY | [address] | | | + + + + + INR (05/31/2011 8:49 PM PDT) + + + + + + | Component | Value | Ref Range | Performed | Pathologist | | | | | At | Signature | + + + + + + | INR | 1.14Comment: | 0.90 - 1.20 INR | [facility] | | | | INR Therapeutic ranges [...] | + + + + + | [facility] | [address] | [place] [address] | | | PATHOLOGY | [address] [...] | + + + + + | [facility] | [address] | [place] [address] | | | PATHOLOGY | [address] [...] | + + + + + | [facility] | [address] | [place] [address] | | | PATHOLOGY | [address] | | | + + + + + documented in this encounter Visit Diagnoses + + | Diagnosis | + + | Endocarditis Endocarditis, valve unspecified, unspecified cause | + + documented in this encounter Administered Medications + +--------+ +-------+------+------+ | Medication Order | MAR | Action | Dose | Rate | Site | | | Action | Date | | | | + +--------+ +-------+------+------+ | enoxaparin (aka LOVENOX) | Given | 06/04/19 | 60 mg | | | | injection 60 mg 60 mg, | | 12 8:53 | | | | | subcutaneous, EVERY 12 HOURS, | | AM PDT | | | | | First dose on Tue06/04/11 at | | | | | | | 0930, Until Discontinued | | | | | | + +--------+ +-------+------+------+ +---+---+ | | | +---+---+ + +---------+ +--------+--------+---+ | fentaNYL citrate (PF) (aka | New Bag | 06/02/19 | 50 mcg | mL/hr | | | SUBLIMAZE) injection 50 mcg 50 | | 12 4:58 | | | | | mcg, intravenous, POSTPROCEDURE | | PM PDT | | | | | PRN, Starting Tue06/02/11 at | | | | | | | 1609, Until Tue06/02/11 at 1846, | | | | | | | moderate pain | | | | | | + +---------+ +--------+--------+---+ + +---+ | | | + +---+ | fentaNYL citrate (PF) (aka | | | SUBLIMAZE) injection 1 dose, | | | Starting Tue06/02/11 at 1648, | | | Until Tue06/02/11 at 1658 | | + +---+ | | | + +---+ + +-------+ +--------+---+---+ | ferrous sulfate tablet 325 mg | Given | 06/02/19 | 325 mg | | | | 325 mg, oral, TWICE DAILY, First | | 12 9:21 | | | | | dose on 05/31/11 at 2230, | | PM PDT | | | | | Until Discontinued | | | | | | + +-------+ +--------+---+---+ +-------+ +--------+---+---+ | Given | 06/01/19 | 325 mg | | | | | 12 9:18 | | | | | | PM PDT | | | | +-------+ +--------+---+---+ | Given | 06/01/19 | 325 mg | | | | | 12 9:35 | | | | | | AM PDT | | | | +-------+ +--------+---+---+ +---+---+ | | | +---+---+ + +---------+ + +---------+---+ | heparin in D5W IV infusion | New Bag | 06/01/19 | 900 | 9 mL/hr | | | 25,000 units/250 mL (100 | | 12 10:21 | Units/hr | | | | units/mL) 900 Units/hr (rounded | | PM PDT | | | | | to 9 mL/hr), intravenous, | | | | | | | CONTINUOUS, Starting 05/31/11 | | | | | | | at 2130, Until Tue06/02/11 at | | | | | | | 1636 | | | | | | + +---------+ + +---------+---+ +---------+ + +---------+---+ | New Bag | 05/31/19 | 900 | 9 mL/hr | | | | 12 9:49 | Units/hr | | | | | PM PDT | | | | +---------+ + +---------+---+ +---+---+ | | | +---+---+ + + + + +-------+---+ | heparin in D5W IV infusion | Rate/Dos | 06/03/19 | 731.4 | 7.31 | | | 25,000 units/250 mL (100 | e Verify | 12 4:05 | Units/hr | mL/hr | | | units/mL) 600 Units/hr (rounded | | PM PDT | | | | | to 6 mL/hr), intravenous, | | | | | | | CONTINUOUS, Starting Autumn 06/03/11 | | | | | | | at 0700, Until Autumn 06/03/11 at | | | | | | | 2309 | | | | | | + + + + +-------+---+ +---------+ + +---------+---+ | New Bag | 06/03/19 | 600 | 6 mL/hr | | | | 12 8:10 | Units/hr | | | | | AM PDT | | | | +---------+ + +---------+---+ +---+---+ | | | +---+---+ + + + + + +---+ | heparin in D5W IV infusion | Rate/Dos | 06/03/19 | 1,200 | 12 mL/hr | | | 25,000 units/250 mL (100 | e Change | 12 11:14 | Units/hr | | | | units/mL) 1,200 Units/hr | | PM PDT | | | | | (rounded to 12 mL/hr), | | | | | | | intravenous, CONTINUOUS, Starting | | | | | | | Autumn 06/03/11 at 2315, Until Fri | | | | | | | 06/04/11 at 0826 | | | | | | + + + + + +---+ +---+---+ | | | +---+---+ + +-------+ + +---+---+ | HYDROcodone-acetaminophen (aka | Given | 06/03/19 | 1 tablet | | | | NORCO) 5-325 mg tablet 1-2 Tab | | 12 4:13 | | | | | 1-2 tablet, oral, EVERY 4 HOURS | | AM PDT | | | | | NEEDED, Starting 06/02/11 | | | | | | | at 1631, Until 06/04/11 at | | | | | | | 1800, mild pain | | | | | | + +-------+ + +---+---+ +-------+ + +---+---+ | Given | 06/02/19 | 1 tablet | | | | | 12 10:27 | | | | | | PM PDT | | | | +-------+ + +---+---+ | Given | 06/02/19 | 1 tablet | | | | | 12 9:22 | | | | | | PM PDT | | | | +-------+ + +---+---+ +---+---+ | | | +---+---+ + +-------+ +--------+---+---+ | levothyroxine tablet 75 mcg 75 | Given | 06/04/19 | 75 mcg | | | | mcg, oral, DAILY, First dose | | 12 6:45 | | | | | (after last modification) on e | | AM PDT | | | | | 06/01/11 at 0730, Until | | | | | | | Discontinued | | | | | | + +-------+ +--------+---+---+ +-------+ +--------+---+---+ | Given | 06/03/19 | 75 mcg | | | | | 12 8:12 | | | | | | AM PDT | | | | +-------+ +--------+---+---+ | Given | 06/02/19 | 75 mcg | | | | | 12 7:49 | | | | | | AM PDT | | | | +-------+ +--------+---+---+ +---+---+ | | | +---+---+ + +---------+ +------+--------+---+ | metoprolol (alejandro SAVAGE) | New Bag | 06/01/19 | 5 mg | mL/hr | | | injection 5 mg 5 mg, | | 12 6:15 | | | | | intravenous, EVERY 5 MINUTES | | PM PDT | | | | | NEEDED, Starting Tu06/01/11 at | | | | | | | 0000, Until Tue06/04/11 at 1800, | | | | | | | heart rate, HR > 130 | | | | | | + +---------+ +------+--------+---+ +---------+ +------+--------+---+ | New Bag | 06/01/19 | 5 mg | mL/hr | | | | 12 3:04 | | | | | | PM PDT | | | | +---------+ +------+--------+---+ | New Bag | 05/31/19 | 5 mg | mL/hr | | | | 12 10:11 | | | | | | PM PDT | | | | +---------+ +------+--------+---+ +---+---+ | | | +---+---+ + +-------+ +-------+---+---+ | metoprolol tartrate (aka | Given | 05/31/19 | 25 mg | | | | LOPRESSOR) tablet 25 mg 25 mg, | | 12 9:42 | | | | | oral, TWICE DAILY, First dose | | PM PDT | | | | | (after last modification) on Mon | | | | | | | 05/31/11 at 2130, Until | | | | | | | Discontinued | | | | | | + +-------+ +-------+---+---+ +---+---+ | | | +---+---+ + +-------+ +-------+---+---+ | metoprolol tartrate (aka | Given | 06/04/19 | 25 mg | | | | LOPRESSOR) tablet 25 mg 25 mg, | | 12 8:18 | | | | | oral, TWICE DAILY, First dose | | AM PDT | | | | | (after last modification) on Tue | | | | | | | 06/01/11 at 2100, Until | | | | | | | Discontinued | | | | | | + +-------+ +-------+---+---+ +-------+ +-------+---+---+ | Given | 06/03/19 | 25 mg | | | | | 12 9:56 | | | | | | PM PDT | | | | +-------+ +-------+---+---+ | Given | 03/15/20 | 25 mg | | | | | 12 8:13 | | | | | | AM PDT | | | | +-------+ +-------+---+---+ +---+---+ | | | +---+---+ + +---------+ +--------+--------+---+ | perflutren lipid microspheres | New Bag | 06/01/19 | 1.5 mL | mL/hr | | | (aka DEFINITY) injection 1.5 mL | | 12 3:45 | | | | | 1.5 mL, intravenous, PROCEDURE | | PM PDT | | | | | ONCE, 1 dose, [facility] 06/01/11 at 1615 | | | | | | + +---------+ +--------+--------+---+ +---+---+ | | | +---+---+ + +-------+ + +---+---+ | trimethoprim-sulfamethoxazole | Given | 06/04/19 | 1 tablet | | | | (aka BACTRIM DS,SEPTRA DS) | | 12 8:18 | | | | | 160-800 mg tablet 1 Tab 1 | | AM PDT | | | | | tablet, oral, TWICE DAILY, First | | | | | | | dose on 05/31/11 at 2130, | | | | | | | Until Discontinued | | | | | | + +-------+ + +---+---+ +-------+ + +---+---+ | Given | 06/03/19 | 1 tablet | | | | | 12 9:55 | | | | | | PM PDT | | | | +-------+ + +---+---+ | Given | 06/03/19 | 1 tablet | | | | | 12 8:12 | | | | | | AM PDT | | | | +-------+ + +---+---+ +---+---+ | | | +---+---+ + +-------+ +------+---+---+ | warfarin (aka COUMADIN) tablet | Given | 06/03/19 | 5 mg | | | | 5 mg 5 mg, oral, EVERY EVENING, | | 12 9:56 | | | | | First dose on Tue06/02/11 at | | PM PDT | | | | | 2100, Until Discontinued | | | | | | + +-------+ +------+---+---+ +-------+ +------+---+---+ | Given | 06/02/19 | 5 mg | | | | | 12 9:22 | | | | | | PM PDT | | | | +-------+ +------+---+---+ +---+---+ | | | +---+---+ documented in this encounter
--- OUTSIDE RECORDS SUMMARY | ~2019-01-20 | XMS | Encounter Summary ---
Demographics + + + | Address | [address] | | | [place] [address] | + + + | Home Phone | | + + + | Preferred Language | Unknown | + + + | Marital Status | | + + + | Tenriism Affiliation | MET | + + + | Race | White | + + + | Ethnic Group | Not or | + + + Author + + + | Author | [facility] | + + + | Organization | [facility] | + + + | Address | Unknown | + + + | Phone | Unavailable | + + + Support + + + + + | Name | Relationship | Address | Phone | + + + + + | Marnie Osorio | ECON | [address] | | | | | [place], [place] | | | | | [address] | | + + + + + | Zoey Marie | JAZZMINE | Unknown | | + + + + + | Dionne Alba | ECON | Unknown | | + + + + + Care Team Providers + +------+ + | Care Edge Stitcher Name | Role | Phone | + [...] | | | | valve | DO [facility] | [address] [facility] | | | | | disorders | [place] | [address] | | | | | | CARDIOLOGY | [address] [place], | | | | [address] | [place] | | | | | | [place] | [address] | | | | | | [address] | | | | | | | [address] | | | | | | | [place] | | | | | | | [address] | | | | | | | Phone: | | | | | | | [phone] | | | | | | | Fax: | | | | | | | [phone] | | +--------+--------+ + + + + [...] | | | | | | [place], | | | | | | [place] [address] | | | | | | [phone] | | | +--------+---------+ + + + [...] malaise. He is currently en route to [place] in his RV c his until May. [...] [facility] | [address] | [place] [address] | | | [address] | [address] [...]
--- OUTSIDE RECORDS SUMMARY | ~2019-01-20 | XMS | Encounter Summary ---
Demographics + + + | Address | [address] | | | [place] [address] | + + + | Home Phone [...] + + + | Author | [facility] | + + + | Organization | [facility] | + + + | Address | Unknown | + + + | Phone | Unavailable | + + + Support + + + + + | Name | Relationship | Address | Phone | + + + + + | Marnie Osorio | ECON | [address] | | | | | [place], [place] | | | | | [address] | | + + + + + | Zoey Marie | ECON | Unknown | | + + + + + | Dionne Alba | ECON | Unknown | | + + + + + Care Team Providers + +------+ + | Care Farm Crew Member Name | Role | Phone | + +------+ + | Vik Kraft DO | PCP | | + +------+ + Encounter Details +--------+ + + + + | Date | Type | Department | Care Team | Description | +--------+ + + + + | 04/05/ | Results | LAB REFERRED TESTS | Other, Faculty | | | 2010 | Only | [address] [facility] | [phone] | | | | | [address] | | | | | | [place], [place] | | | | | | [address] | | | +--------+ + + + [...] DEPT OF | [address] | [place], [place] | | | CARDIOLOGY | [facility] | [address] | | + + + + + documented in this encounter Visit Diagnoses Not on filedocumented in this encounter"
--- OUTSIDE RECORDS SUMMARY | ~2019-01-20 | XMS | Encounter Summary ---
Demographics + + + | Address | [address] | | | [place] [address] | + + + | Home Phone | | + + + | Preferred Language | Unknown | + + + | Marital Status | | + + + | Mu-Ism Affiliation | MET | + + + | Race | White | + + + | Ethnic Group | Not or | + + + Author + + + | Author | [facility] | + + + | Organization | [facility] | + + + | Address | Unknown | + + + | Phone | Unavailable | + + + Support + + + + + | Name | Relationship | Address | Phone | + + + + + | Marnie Morin | ECON | [address] | | | | | [place], [place] | | | | | [address] | | + + + + + | Zoey Marie | ECON | Unknown | | + + + + + | Dionne Alba | ECON | Unknown | | + + + + + Care Team Providers + +------+ + | Care Pigment Furnace Tender Name | Role | Phone | + [...] | | | | MAHAMED Mcgovern | [facility] [address] | | | | | TRANSTHORACI | [address] | [address] | | | | | C | Alisson Williamson | Samantha Vizcarra | | | | | ECHOCARDIOGR | Samantha Vizcarra | Mailcode: | | | | | AM, ADULT | [place], [place] | [address] | | | | | | [address] | Clay Pickard | | | | | | Phone: | Building | | | | | | [phone] | [place], [place] | | | | | | Fax: | [address] | | | | | | [phone] | Phone: | | | | | | | [phone] | +--------+--------+ + + + + Reason [...] + + | 05/30/ | Hospital | [facility] [address] | Tiburcio Chung, | | | 2011 - | Encounter | [address] | | | | | | [id number] [facility] | | | | 06/03/ | | [facility], | | | | 2011 | | [place] [address] | | | | | | [phone] | | | +--------+ + + + [...] Course: Mr. Clay Morin was admitted to [facility] on 06/01/2011 for heparin bridge (on warfarin [...] Care Coordination rounds held. Disciplines attending included: Telephone Information Supervisor,, Communications Professional,, Bedside RN,, refinery operator reforming unit,, Physician, Dr. Winn, Physician's Fill Technician,, Physical Therapist,, Airways Control Specialist,, Pharmacist PERTINENT FINDINGS Notes: Pt will DC home when IRN >1.8; with follow up from PCP Dr. Kraft for anti-coag upon DC. Electronically signed by:Elyse An Position:Telephone Information Supervisor Pager ID:[phone] Electronically signed on:2011-06-03 1215Electronically signed by Elyse [...] INR >1.8 (Electronically Signed) Piero Goel PA-C [facility] Cardiac Surgery Ceci Handy PA-C - 2011 4:37 PM PDTPost-procedure note: Pt underwent small subxiphoid incision. Two pacing wires were removed. No complication. Pt to recover in PACU then back to 11K. Restart coumadin tonight. Start Heparin gtt tomorrow @ 0900. CECI ARAYA PA-C Division of Cardiothoracic Surgery [facility] Mail Code [id number] [address] [facility] [address] Tiburcio Panda MD - 06/01/2011 [...] Electronically signed Tiburcio Chung MD, FACS, FACC Ear Pull Machine Operator, Department of Surgery Clinical Director, Adult Cardiac Surgery Co-Director, Multidisciplinary Heart Valve Clinic [facility] | [email or web address] eterson, Thuy L - 0 06/01/2011 4:07 [...] 66y/o M admitted for heparin bridge (has [facility] AV/MV) prior to retained epic ardial pacing [...] included: Wtih Spouse or Domestic Partner Geramauricio [phone] FUNCTIONAL STATUS Patient's baseline functional status prior [...] that may arise. Electronically signed by:Elyse An Position:Telephone Information Supervisor Pager ID:[phone] Electronically signed on:2011-06-01 1148Electronically signed by Elyse [...] | + + + + + | [facility] | [address] | [place] [address] | | | PATHOLOGY | [address] [...] | + + + + + | [facility] | [address] | [place] [address] | | | PATHOLOGY | [address] [...] | + + + + + | [facility] | [address] | [place] [address] | | | PATHOLOGY | [address] [...] | + + + + + | [facility] | [address] | [place] [address] | | | PATHOLOGY | [address] [...] | + + + + + | [facility] DEPARTMENT OF | [address] | [place] [address] | | | PATHOLOGY | [address] [...] | + + + + + | [facility] | [address] | [place] [address] | | | PATHOLOGY | [address] [...] + + + + | PRODUCT | [id number] | | [facility] | | | UNIT [...] + + + + | BLOOD | [id number] | | [facility] | | | PRODUCT [...] | + + + + + | [facility] | [address] | [place] [address] | | | PATHOLOGY | [address] [...] [place] DEPARTMENT | [address] | [place] [address] | | | PATHOLOGY | [address] [...] | + + + + + | [facility] | [address] | [place] [address] | | | PATHOLOGY | [address] [...] DEPARTMENT OF | [address] | [place] [address] | | | PATHOLOGY | [address] [...] + + + + + | [facility] DEPARTMENT OF | [address] | [place] [address] | | | PATHOLOGY | [address] [...] | + + + + + | [facility] | [address] | [place] [address] | | | PATHOLOGY | [address] [...] view image for the detailed interpretation from [employer] results. | CARDIOLOGY | + + + + + + + + | Performing | Address | City/State/Zipcode | Phone Number | | Organization | | | | + + + + + | [facility] DEPT OF | [address] | [place], [place] | | | CARDIOLOGY | [address] | [address] | | + + + + + [...] + + | [facility] DEPARTMENT OF | [address] | [place] [address] | | | PATHOLOGY | [address] [...] | + + + + + | [facility] | [address] | [place] [address] | | | PATHOLOGY | [address] [...] | + + + + + | [facility] | [address] | [place] [address] | | | PATHOLOGY | [address] [...] | + + + + + | [facility] | [address] | [place] [address] | | | PATHOLOGY | [address] [...] | | | | ONCE, 1 dose, [facility] 06/01/11 at 1615 | | [...]
--- OUTSIDE RECORDS SUMMARY | ~2019-01-20 | XMS | Encounter Summary ---
Demographics + + + | Address | [address] | | | [place] [address] | + + + | Home Phone | | + + + | Preferred Language | Unknown | + + + | Marital Status | | + + + | Religion Affiliation | MET | + + + [...] [place], [place] | | | | | [address] | | + + + + + | Zoey Marie | ECON | Unknown | | + + + + + | Dionne Alba | ECON | Unknown | | + + + + + Care Team Providers + +------+ + | Care Data Center Project Manager Name | Role | Phone | [...] | | | | | Samantha Vizcarra [place], | | | | | | [place] [address] | | | | | | [phone] | | | +--------+------+ + + + [...] | + + + + + | [facility] | [address] | [place] [address] | | | DAISY AQUINO | [address] | | | + + + + + documented in this encounter Visit Diagnoses + + | Diagnosis | + + | S/P AVR (aortic valve replacement) Heart valve replaced by other means | + + documented in this encounter"
--- OUTSIDE RECORDS SUMMARY | ~2019-01-20 | XMS | Clinical Summary ---
Demographics + + + | Address | [address] | | | [place] [address] | + + + | Home Phone | | + + + | Preferred Language | Unknown | + + + | Marital Status | | + + + | Yazdanism Affiliation | MET | + + + [...] [place], [place] | | | | | [address] | | + + + + + | Zoey Marie | ECON | Unknown | | + + + + + | Dionne Alba | ECON | Unknown | | + + + + + Care Team Providers + +------+ + | Care Supervisor Gear Repair Name | Role | Phone | + +------+ + | Vik Kraft DO | PCP | | + +------+ + Source Comments [facility] is fully live on both EpicCare Ambulatory and EpicCare InPatient.[facility] Allergies No Known Allergies Medications + [...] | | | | | | | [address] | | + +--------+ +--------+ + +--------+ [...] scar | | | 2 (Home) | [address] | + +--------+ +--------+ + + Advance Directives + + + + + | Type | Date Recorded | Patient | Explanation | | | | Cro | | + + + + + [...] Power of | | | | | Chief Dietitian | | | | + + + [...]
--- OUTSIDE RECORDS SUMMARY | ~2019-01-20 | XMS | Encounter Summary ---
Demographics + + + | Address | [address] | | | [place] [address] | + + + | Home Phone | | + + + | Preferred Language | Unknown | + + + | Marital Status | | + + + | Bahai Affiliation | MET | + + + | Race | White | + + + | Ethnic Group | Not or | + + + Author + + + | Author | [facility] | + + + | Organization | [facility] | + + + | Address | Unknown | + + + | Phone | Unavailable | + + + Support + + + + + | Name | Relationship | Address | Phone | + + + + + | Marnie Osorio | ECON | [address] | | | | | [place], [place] | | | | | [address] | | + + + + + | Zoey Marie | ECON | Unknown | | + + + + + | Dionne Alba | ECON | Unknown | | + + + + + Care Team Providers + +------+ + | Care Tissue Packer Name | Role | Phone | + [...] | | | 2011 | Event | [facility] | [address] [facility] | | | | | Admitting Desk | Silvia Vizcarra [facility] | | | | | Located on the | [place] [address] | | | | | floor [address] [facility] | [phone] | | | | | [address] | | | | | | [place], [place] | Marielle Kaufman MD | | | | | [address] | [facility] | | | | | | Group [address] | | | | | | [address] | | | | | | [place] [address] | | | | | | [phone] | | | | | | | [...]
--- OUTSIDE RECORDS SUMMARY | ~2019-01-20 | XMS | Encounter Summary ---
Demographics + + + | Address | [address] | | | [place] [address] | + + + | Home Phone | | + + + | Preferred Language | Unknown | + + + | Marital Status | | + + + | Sabianist Affiliation | MET | + + + | Race | White | + + + | Ethnic Group | Not or | + + + Author + + + | Author | [facility] | + + + | Organization | [facility] | + + + | Address | Unknown | + + + | Phone | Unavailable | + + + Support + + + + + | Name | Relationship | Address | Phone | + + + + + | Marnie Osorio | ECON | [address] | | | | | [place], [place] | | | | | [address] | | + + + + + | Zoey Marie | ECON | Unknown | | + + + + + | Dionne Alba | ECON | Unknown | | + + + + + Care Team Providers + +------+ + | Care Dairy Nutrition Specialist Name | Role | Phone | [...] [address] | | | | | | [place], [place] | | | | | | [address] | | | +--------+ + + + [...]
--- OUTSIDE RECORDS SUMMARY | ~2019-01-20 | XMS | Encounter Summary ---
Demographics + + + | Address | [address] | | | [place] [address] | + + + | Home Phone | | + + + | Preferred Language | Unknown | + + + | Marital Status | | + + + | Synagogue Affiliation | MET | + + + | Race | White | + + + | Ethnic Group | Not or | + + + Author + + + | Author | [facility] | + + + | Organization | [facility] | + + + | Address | Unknown | + + + | Phone | Unavailable | + + + Support + + + + + | Name | Relationship | Address | Phone | + + + + + | Marnie Osorio | ECON | [address] | | | | | [place], [place] | | | | | [address] | | + + + + + | Zoey Marie | ECON | Unknown | | + + + + + | Dionne Alba | ECON | Unknown | | + + + + + Care Team Providers + +------+ + | Care Health Information Internship Name | Role | Phone | + +------+ + | Vik Kraft DO | PCP | | + +------+ + Encounter Details +--------+ + + + + | Date | Type | Department | Care Team | Description | +--------+ + + + + | 04/08/ | Results | LAB REFERRED TESTS | Other, Faculty | | | 2010 | Only | [address] [facility] | [phone] | | | | | [address] | | | | | | [place], [place] | | | | | | [address] | | | +--------+ + + + [...] + + | [facility] DEPT OF | [address] | [place], [place] | | | CARDIOLOGY | [facility] | [address] | | + + + + + documented in this encounter Visit Diagnoses Not on filedocumented in this encounter"
--- OUTSIDE RECORDS SUMMARY | ~2019-01-20 | XMS | Encounter Summary ---
Demographics + + + | Address | [address] | | | [place] [address] | + + + | Home Phone | | + + + | Preferred Language | Unknown | + + + | Marital Status | | + + + | Yazidism Affiliation | MET | + + + | Race | White | + + + | Ethnic Group | Not or | + + + Author + + + | Author | [facility] | + + + | Organization | [facility] | + + + | Address | Unknown | + + + | Phone | Unavailable | + + + Support + + + + + | Name | Relationship | Address | Phone | + + + + + | Marnie Osorio | ECON | [address] | | | | | [place], [place] | | | | | [address] | | + + + + + | Zoey Marie | ECON | Unknown | | + + + + + | Dionne Alba | ECON | Unknown | | + + + + + Care Team Providers + +------+ + | Care Day Camp Unit Leader Name | Role | Phone | + +------+ + | Vik Kraft DO | PCP | | + +------+ + Encounter Details +--------+ + + + + | Date | Type | Department | Care Team | Description | +--------+ + + + + | 04/08/ | Results | LAB REFERRED TESTS | Other, Faculty | | | 2010 | Only | [address] [facility] | [phone] | | | | | [address] | | | | | | [place], [place] | | | | | | [address] | | | +--------+ + + + [...] + + | [facility] DEPT OF | [address] | [place], [place] | | | CARDIOLOGY | [facility] | [address] | | + + + + + documented in this encounter Visit Diagnoses Not on filedocumented in this encounter"
--- OUTSIDE RECORDS SUMMARY | ~2019-01-20 | XMS | Encounter Summary ---
Demographics + + + | Address | [address] | | | [place] [address] | + + + | Home Phone | | + + + | Preferred Language | Unknown | + + + | Marital Status | | + + + | Latter-Day Affiliation | 1077 | + + + | Race | Unknown | + + + | Ethnic Group | Unknown | + + + Author + + + | Author | [facility] | | | and [place] | + + + | Organization | [facility] | | | [...] [place] | | | | | [address] | | + + + + + Care Team Providers + +------+ + | Care Survey Statistician Name | Role | Phone | + +------+ + | eJsus Damon MD | PCP | | + +------+ + Reason for Visit + + + | Reason | Comments | + + + | Care Coordination | Appointment | + + + Encounter Details +--------+ + + + + | Date | Type | Department | Care Team | Description | +--------+ + + + + | 01/15/ | Telephone | [facility] | Nori Edwards, | Care Coordination | | 2019 | | INFECTIOUS DISEASE | Credit Review Analyst | (Appointment) | | | | [address] [facility] | | | | | | [place], [place] | | | | | | [address] | | | | | | [phone] | | | +--------+ + + + [...] | | | | | JUDY Fitzgerald ATHENSDMITRY | | | | | | [id number] | | | | | | | | +--------+---------+ + + + documented as of this encounter Visit Diagnoses Not on filedocumented in this encounter"
--- OUTSIDE RECORDS SUMMARY | ~2019-01-20 | XMS | Encounter Summary ---
Demographics + + + | Address | [address] | | | [place] [address] | + + + | Home Phone | | + + + | Preferred Language | Unknown | + + + | Marital Status | | + + + | Alevism Affiliation | MET | + + + [...] [place], [place] | | | | | [address] | | + + + + + | Zoey Marie | ECON | Unknown | | + + + + + | Dionne Alba | ECON | Unknown | | + + + + + Care Team Providers + +------+ + | Care Superintendent Radio Communications Name | Role | Phone | + [...] | | | | Transcribed | [facility] | [facility] [address] | | | | | Rd Mailcode: L[address] | [place], [place] | | | | | Physician's | [address] | | | | | [place], | [phone] | | | | | [place] [address] | | | | | | [phone] | | | +--------+ + + + [...] Performed At | + + + | [id number] | | | [id number] | | | [address] [id number] | | | Date: 04/28/2010 Attending Surgeon: | | | Piero Garduno M.D. Electric Motor Repairing Supervisor(s): | | | Darnell Smith M.D. | [...] | | placed, anterior and posterior apical 32-Argentine and a right angle | | | 32-Argentine. These were secured to skin with 2-0 nylon stitches. | | | The patient was taken intubated to the ICU. Please note that the | | | 8-Argentine ET tube was changed back to his [...] M.D. PS / HS | | | [id number] / [id number] / [id number] / | | | | | + + + + + | Procedure Note | + + | Piero Garduno MD - 04/28/2010 12:00 AM [facility] [id number] | | [id number] [address] | | [id number] Date: 04/28/2010 Attending Surgeon: Piero | | Kelechi Garduno Electric Motor Repairing Supervisor(s): Darnell Smith M.D. | | Giselle Lucio [...] were | | placed, anterior and posteriorapical 32-Argentine and a right angle 32-Argentine. These were | | secured to skinwith 2-0 nylon stitches. The patient was taken intubated to the | | ICU.Please note that the 8-Argentine ET tube was changed back to his [...] | | packing. Piero Garduno M.D.[place] / [id number] / [id number] / [id number] / T: | | 04/29/2010 | |Procedure: [...] were placed, anterior and posterior | |apical 32-Argentine and a right angle 32-Argentine. These were secured to skin | |with 2-0 nylon stitches. The patient was taken intubated to the ICU. | |Please note that the 8-Argentine ET tube was changed back to his [...] Garduno M.D. | |PS / HS | |[id number] / [id number] / [id number] / | | | | | | | | | | | | | | | | | | | | | + + documented in this encounter Visit Diagnoses Not on filedocumented in this encounter"
--- OUTSIDE RECORDS SUMMARY | ~2019-01-20 | XMS | Encounter Summary ---
Demographics + + + | Address | [address] | | | [place] [address] | + + + | Home Phone | | + + + | Preferred Language | Unknown | + + + | Marital Status | | + + + | Mandaen Affiliation | MET | + + + | Race | White | + + + | Ethnic Group | Not or | + + + Author + + + | Author | [facility] | + + + | Organization | [facility] | + + + | Address | Unknown | + + + | Phone | Unavailable | + + + Support + + + + + | Name | Relationship | Address | Phone | + + + + + | Marnie Osorio | ECON | [address] | | | | | [place], [place] | | | | | [address] | | + + + + + | Zoey Marie | ECON | Unknown | | + + + + + | Dionne Alba | ECON | Unknown | | + + + + + Care Team Providers + +------+ + | Care Wildlife Refuge Specialist Name | Role | Phone | [...] Duodenal | Cortes Henriquez MD | [address] | | | | | ulcer, | | [address] | | | | | unspecified | | Sil[address] V[address]carra | | | | | as acute or | | Mailcode: | | | | | chronic, | | [facility] | | | | | without | | [place] | | | | | hemorrhage, | | [address] | | | | | perforation, | | [place], | | | | | or | | [place] [address] | | | | | obstruction | | Phone: | | | | | Procedures | | [phone] | | | | | CONSULT TO | | Fax: | | | | | GI PROCEDURE | | [phone] | | | | | UNIT: EGD | | | +--------+--------+ + + + + Encounter Details +--------+ + + + + | Date | Type | Department | Care Team | Description | +--------+ + + + + | 05/08/ | Parking Meter Mechanic | Digestive Health | Cortes Schmitt | Duodenal ulcer | | 2010 | | Center at [facility] [address] | [address] | (Primary Dx) | | | | [address] | | | | | | Mailcode: [place] | | | | | | for Health and | | | | | | [facility] [place] [address] | | | | | | [place], [place] | | | | | | [address] | | | | | | [phone] | | | +--------+ + + + [...]
--- OUTSIDE RECORDS SUMMARY | ~2019-01-20 | XMS | Clinical Summary ---
Demographics + + + | Address | [address] | | | [place] [address] | + + + | Home Phone | | + + + | Preferred Language | Unknown | + + + | Marital Status | | + + + | Episcopalian Affiliation | 1077 | + + + | Race | Unknown | + + + | Ethnic Group | Unknown | + + + Author + + + | Author | [facility] | | | and [place] | + + + | Organization | [facility] | | | [...] [place] | | | | | [address] | | + + + + + Care Team Providers + +------+ + | Care Gaming Commissioner Name | Role | Phone | + [...] + +---+ + + | Overview: JOLANTA [id number] Decision | + + + +---+ | [...] Coordination | | 2019 | | | Agricultural Pilot | (Appointment) | +--------+ + + + [...] | | | | | [facility] | | | | | | [id number] | | | | | | | [...] +--------+ +---------+--------+ | MEDICARE | MEDICA | [id number] | 03/21/19 | [phone] | | Medica | | | RE | | 12-Pre | 5 | | re | | | PART A | | sent | | | | | | AND B | | | | | | + +--------+ +--------+ +---------+--------+ | GEHA | GEHA | [id number] | 03/21/19 | [phone] | | Indemn | | | MDCR | | 10-Pre | 6 | | ity | | | SUPPL | | sent | | | | + +--------+ +--------+ +---------+--------+ | MEDICARE | MEDICA | [id number] | 03/21/19 | [phone] | | Medica | | | RE | | 12-Pre | 5 | | re | | | PART A | | sent | | | | | | AND B | | | | | | + +--------+ +--------+ +---------+--------+ | GEHA | GEHA | [id number] | 01/09/ | [phone] | | Indemn [...] scar | | | 2 (Home) | [address] | + +--------+ +--------+ + + | Clay Osorio | Person | Self | [birth year] | [address] | | | al/Fam | | 1946 | [phone] | [place] | | | scar | | | 2 ([place]) | [address] | + +--------+ +--------+ + + Advance Directives Patient has advance care planning documents on file. For more information, please contact:[facility] [place] [facility] [place] [address]
--- OUTSIDE RECORDS SUMMARY | ~2019-01-20 | XMS | Encounter Summary ---
Demographics + + + | Address | [address] | | | [place] [address] | + + + | Home Phone | | + + + | Preferred Language | Unknown | + + + | Marital Status | | + + + | Mosque Affiliation | MET | + + + | Race | White | + + + | Ethnic Group | Not or | + + + Author + + + | Author | [facility] | + + + | Organization | [facility] | + + + | Address | Unknown | + + + | Phone | Unavailable | + + + Support + + + + + | Name | Relationship | Address | Phone | + + + + + | Marnie Osorio | ECON | [address] | | | | | [place], [place] | | | | | [address] | | + + + + + | Zoey Marie | ECON | Unknown | | + + + + + | Dionne Alba | ECON | Unknown | | + + + + + Care Team Providers + +------+ + | Care Oil Lease Operator Name | Role | Phone | [...] Duodenal | Cortes Henriquez MD | [address] | | | | | ulcer, | | [address] | | | | | unspecified | | Silvia Vizcarra | | | | | as acute or | | Mailcode: | | | | | chronic, | | [facility] | | | | | without | | [facility] | | | | | hemorrhage, | | [address] | | | | | perforation, | | [place], | | | | | or | | [place] [address] | | | | | obstruction | | Phone: | | | | | Procedures | | [phone] | | | | | CONSULT TO | | Fax: | | | | | GI PROCEDURE | | [phone] | | | | | UNIT: EGD | | | +--------+--------+ + + + + Encounter Details +--------+ + + + + | Date | Type | Department | Care Team | Description | +--------+ + + + + | 05/08/ | Sprinkler Inspector | Digestive Health | Cortes Schmitt | Duodenal ulcer | | 2010 | | Center at [facility] [address] | [address] | (Primary Dx) | | | | [address] | | | | | | Mailcode: [place] | | | | | | for Health and | | | | | | [facility], [place] [address] | | | | | | [place], [place] | | | | | | [address] | | | | | | [phone] | | | +--------+ + + + [...]
--- OUTSIDE RECORDS SUMMARY | ~2019-01-20 | XMS | Encounter Summary ---
Demographics + + + | Address | [address] | | | [place] [address] | + + + | Home Phone | | + + + | Preferred Language | Unknown | + + + | Marital Status | | + + + | Anglican Affiliation | MET | + + + [...] [place], [place] | | | | | [address] | | + + + + + | Zoey Marie | ECON | Unknown | | + + + + + | Dionne Alba | ECON | Unknown | | + + + + + Care Team Providers + +------+ + | Care Belt Weaver Name | Role | Phone | + [...] + + | 11/12/ | Emergency | [facility] Emergency | | | | 2010 | | Department [address] | | | | | | [facility] | | | | | | [facility] | | | | | | [place], [place] | | | | | | [address] | | | | | | [phone] | | | +--------+ + + + [...]
--- OUTSIDE RECORDS SUMMARY | ~2019-01-20 | XMS | Encounter Summary ---
Demographics + + + | Address | [address] | | | [place] [address] | + + + | Home Phone | | + + + | Preferred Language | Unknown | + + + | Marital Status | | + + + | Yarsanism Affiliation | MET | + + + [...] [place], [place] | | | | | [address] | | + + + + + | Zoey Marie | ECON | Unknown | | + + + + + | Dionne Alba | ECON | Unknown | | + + + + + Care Team Providers + +------+ + | Care Ceramic Capacitor Processor Name | Role | Phone | + [...] + + | 11/12/ | Emergency | [facility] | | | | 2010 | | Department [address] | | | | | | [facility] | | | | | | [facility] | | | | | | [place], [place] | | | | | | [address] | | | | | | [phone] | | | +--------+ + + + [...]
--- OUTSIDE RECORDS SUMMARY | ~2019-01-20 | XMS | Encounter Summary ---
Demographics + + + | Address | [address] | | | [place] [address] | + + + | Home Phone | | + + + | Preferred Language | Unknown | + + + | Marital Status | | + + + | Roman Catholic Affiliation | MET | + + + [...] [place], [place] | | | | | [address] | | + + + + + | Zoey Marie | ECON | Unknown | | + + + + + | Dionne Alba | ECON | Unknown | | + + + + + Care Team Providers + +------+ + | Care Threshing Machine Operator Name | Role | Phone [...] | | | | | Samantha Vizcar[place], | | | | | | [place] [address] | | | | | | [phone] | | | +--------+------+ + + + [...] + + + + + | [facility] | [address] | [place] [address] | | | DAISY QAUINO | [address] | | | + + + + + documented in this encounter Visit Diagnoses + + | Diagnosis | + + | S/P AVR (aortic valve replacement) Heart valve replaced by other means | + + documented in this encounter"
--- OUTSIDE RECORDS SUMMARY | ~2019-01-20 | XMS | Encounter Summary ---
Demographics + + + | Address | [address] | | | [place] [address] | + + + | Home Phone | | + + + | Preferred Language | Unknown | + + + | Marital Status | | + + + | Buddhist Affiliation | MET | + + + [...] [place], [place] | | | | | [address] | | + + + + + | Zoey Marie | ECON | Unknown | | + + + + + | Dionne Alba | ECON | Unknown | | + + + + + Care Team Providers + +------+ + | Care Credit Assistant Name | Role | Phone | [...] | | unspecified, | CARDIOLOGY | [address], | | | | | unspecified | [address] | [place] | | | | | cause | [place] | [address] | | | | | Procedures | DRIVE [address] | | | | | | [address] | F | | | | | | [address] | [place], [place] | | | | | | ONE | [address] | | | | | | LD/THORACOTM | Phone: | | | | | | Y [address] | [phone] | | | | | | [address] | Fax: | | | | | | TWO | [phone] | | | | | | LD/THORACOTM [...] | | | | | | [place], | | | | | | [place] [address] | | | | | | [phone] | | | +--------+---------+ + + + [...] AM of May 30). 4. Arrive at [facility] on Tuesday, May 31, 2011 in the afternoon for admission for anti-coagul ation 5. Tentatively plan surgery on Tuesday. (Electronically Signed) Piero Goel PA-C [facility] Cardiac Surgery documented in this encounter [...] He is a 66 yo man from [place], [place] who presented with MSSA double valve [...] chills, pain. Saw a Cardiac Surgeon in [place], [place] for this. Obtained CT scan which demonstrated retained epicardial wires (no fl uid accumulation) and due to complexity, was referred to [facility] Cardiac Surgery. Has been on/ off [...] mechanical clicks. No rubs or gallops Extremities: Spring, warm, dry, no peripheral edema . Studies: [...] bridging wi th enoxaparin and admission to [facility] for heparinization prior to surgery. Plan [...] AM of May 30). 4. Arrive at [facility] on Tuesday, May 31, 2011 in the afternoon for admission for anti-coagul ation 5. Tentatively plan surgery on Tuesday. Above discussed with his PCP, Dr. Kraft (Electronically Signed) Piero Goel PA-C [facility] Cardiac Surgery documented in this encounter [...]
--- OUTSIDE RECORDS SUMMARY | ~2019-01-20 | XMS | Clinical Summary ---
Demographics + + + | Address | [address] | | | [place] [address] | + + + | Home Phone | | + + + | Preferred Language | Unknown | + + + | Marital Status | | + + + | Spiritism Affiliation | 1077 | + + + | Race | Unknown | + + + | Ethnic Group | Unknown | + + + Author + + + | Author | [facility] (Historical as of | | | 11-04-18) | + + + | Organization | [facility] (Historical as of | | | 11-04-18) [...] [place] | | | | | [address] | | + + + + + Care Team Providers + +------+ + | Care Biomathematician Name | Role | Phone | + [...] [place] | | | | | | [address] | | | | | | | [...] +------+-------+ + | MEDICARE | MEDICA | [id number] | | | [address] | | | RE | | | | [place] [phone] | | | IP-OP | | | | | + +--------+ +------+-------+ + | AETNA | AETNA | [id number] | | | | | | - [...] | | | scar | | | [address] | [address] | + +--------+ +--------+ + +
--- OUTSIDE RECORDS SUMMARY | ~2019-01-20 | XMS | Encounter Summary ---
Demographics + + + | Address | [address] | | | [place] [address] | + + + | Home Phone | | + + + | Preferred Language | Unknown | + + + | Marital Status | | + + + | Catholic Affiliation | MET | + + [...] [place], [place] | | | | | [address] | | + + + + + | Zoey Marie | ECON | Unknown | | + + + + + | Dionne Alba | ECON | Unknown | | + + + + + Care Team Providers + +------+ + | Care Staffing Operations Manager Name | Role | Phone | [...] | | | | (aortic | [address] | [address] | | | | | valve | [address] | Mailcode: | | | | | replacement) | [address] | [facility] | | | | | Procedures | [place], [place] | for Health | | | | | X-RAY | [address] | and Healing, | | | | | ESOPHAGRAM | Phone: | Building [address], | | | | | | [phone] | 3rd Floor | | | | | | Fax: | [place], [place] | | | | | | [phone] | [address] | | | | | | | Phone: | | | | | | | [phone] | | | | | | | Fax: | | | | | | | [phone] | +--------+--------+ + + + + Encounter Details +--------+ + + + + | Date | Type | Department | Care Team | Description | +--------+ + + + + | 08/13/ | Hospital | Radiology/Imaging | | | | 2010 | Encounter | Lab at [facility] [address] | | | | | | [address] Mailcode: | | | | | | [facility] | | | | | | Health and Healing, | | | | | | Building , [facility] | | | | | | Floor [place], [place] | | | | | | [address] | | | | | | [phone] | | | +--------+ + + + [...]
--- OUTSIDE RECORDS SUMMARY | ~2019-01-20 | XMS | Encounter Summary ---
Demographics + + + | Address | [address] | | | [place] [address] | + + + | Home Phone | | + + + | Preferred Language | Unknown | + + + | Marital Status | | + + + | Zoroastrianism Affiliation | MET | + + + | Race | White | + + + | Ethnic Group | Not or | + + + Author + + + | Author | [facility] | + + + | Organization | [facility] | + + + | Address | Unknown | + + + | Phone | Unavailable | + + + Support + + + + + | Name | Relationship | Address | Phone | + + + + + | Marnie Osorio | ECON | [address] | | | | | [place], [place] | | | | | [address] | | + + + + + | Zoey Marie | ECON | Unknown | | + + + + + | Dionne Alba | ECON | Unknown | | + + + + + Care Team Providers + +------+ + | Care Home Health Travel Ot Name | Role | Phone | + [...] Duodenal | Cortes Henriquez MD | [address] | | | | | ulcer, | | [address] | | | | | unspecified | | [address] [place] | | | | | as acute or | | Mailcode: | | | | | chronic, | | [facility] | | | | | without | | [place] | | | | | hemorrhage, | | [address] | | | | | perforation, | | [place], | | | | | or | | [place] [address] | | | | | obstruction | | Phone: | | | | | Procedures | | [phone] | | | | | CONSULT TO | | Fax: | | | | | GI PROCEDURE | | [phone] | | | | | UNIT: | | | | | | | COLONOSCOPY | | | +--------+--------+ + + + + Encounter Details +--------+ + + + + | Date | Type | Department | Care Team | Description | +--------+ + + + + | 05/06/ | White Work Cleaner | Digestive Health | Cortes Schmitt | Duodenal ulcer | | 2010 | | [place] at [facility] [address] | MD Martinez | (Primary Dx) | | | | [address] | | | | | | Mailcode: [place] | | | | | | [facility] and | | | | | | [facility] [place] [address] | | | | | | [place], [place] | | | | | | [address] | | | | | | [phone] | | | +--------+ + + + [...]
--- OUTSIDE RECORDS SUMMARY | ~2019-01-20 | XMS | Encounter Summary ---
Demographics + + + | Address | [address] | | | [place] [address] | + + + | Home Phone [...] + + + | Author | [facility] | + + + | Organization | [facility] | + + + | Address | Unknown | + + + | Phone | Unavailable | + + + Support + + + + + | Name | Relationship | Address | Phone | + + + + + | Marnie Osorio | ECON | [address] | | | | | [place], [place] | | | | | [address] | | + + + + + | Zoey Mraie | ECON | Unknown | | + + + + + | Dionne Alba | ECON | Unknown | | + + + + + Care Team Providers + +------+ + | Care Magazine Grinder Loader Name | Role | Phone | + +------+ + | Vik Kraft DO | PCP | | + +------+ + Encounter Details +--------+ + + + + | Date | Type | Department | Care Team | Description | +--------+ + + + + | 05/31/ | Results | LAB REFERRED TESTS | Other, Faculty | | | 2011 | Only | [address] [facility] | [phone] | | | | | [address] | | | | | | [place], [place] | | | | | | [address] | | | +--------+ + + + [...] DEPT OF | [address] | [place], [place] | | | CARDIOLOGY | [address] | [address] | | + + + + + documented in this encounter Visit Diagnoses Not on filedocumented in this encounter"
--- OUTSIDE RECORDS SUMMARY | ~2019-01-20 | XMS | Encounter Summary ---
Demographics + + + | Address | [address] | | | [place] [address] | + + + | Home Phone | | + + + | Preferred Language | Unknown | + + + | Marital Status | | + + + | Church Affiliation | MET | + + + | Race | White | + + + | Ethnic Group | Not or | + + + Author + + + | Author | [facility] | + + + | Organization | [facility] | + + + | Address | Unknown | + + + | Phone | Unavailable | + + + Support + + + + + | Name | Relationship | Address | Phone | + + + + + | Marnie Osorio | ECON | [address] | | | | | [place], [place] | | | | | [address] | | + + + + + | Zoey Marie | ECON | Unknown | | + + + + + | Dionne Alba | ECON | Unknown | | + + + + + Care Team Providers + +------+ + | Care Paper Processing Machine Helper Name | Role | Phone | [...] | | | | Transcribed | [address] [facility] | [facility] [address] | | | | | Rd Mailcode: [address] | [place], [place] | | | | | Physician's | [address] | | | | | [place], | [phone] | | | | | [place] [address] | | | | | | [phone] | | | +--------+ + + + [...] Performed At | + + + | [id number] | | | [id number] | | | [facility] [id number] | | | Date: 04/28/2010 Attending Surgeon: | | | Piero Garduno M.D. Hands Parter(s): | | | Darnell Smith M.D. | [...] | | placed, anterior and posterior apical 32-Bahraini and a right angle | | | 32-Bahraini. These were secured to skin with 2-0 nylon stitches. | | | The patient was taken intubated to the ICU. Please note that the | | | 8-Bahraini ET tube was changed back to his [...] M.D. PS / HS | | | [id number] / [id number] / [id number] / | | | | | + + + + + | Procedure Note | + + | Piero Garduno MD - 04/28/2010 12:00 AM [facility] [id number] | | [id number] [facility] | | [id number] Date: 04/28/2010 Attending Surgeon: Piero | | Kelechi Garduno Hands Parter(s): Darnell Smith M.D. | | Giselle Lucio [...] were | | placed, anterior and posteriorapical 32-Bahraini and a right angle 32-Bahraini. These were | | secured to skinwith 2-0 nylon stitches. The patient was taken intubated to the | | ICU.Please note that the 8-Bahraini ET tube was changed back to his [...] | | packing. Piero Garduno M.D.[place] / [id number] / [id number] / [id number] / T: | | 04/29/2010 | |Procedure: [...] were placed, anterior and posterior | |apical 32-Bahraini and a right angle 32-Bahraini. These were secured to skin | |with 2-0 nylon stitches. The patient was taken intubated to the ICU. | |Please note that the 8-Bahraini ET tube was changed back to his [...] Garduno M.D. | |PS / HS | |[id number] / [id number] / [id number] / | | | | | | | | | | | | | | | | | | | | | + + documented in this encounter Visit Diagnoses Not on filedocumented in this encounter"
== END 2019-01-21 00:05 | disposition short-term general hospital (02) ==
LOC: ED 17:47
DX: R04.2 Hemoptysis (principal); Z79.01 Long term (current) use of anticoagulants; I10 Essential (primary) hypertension; I48.91 Unspecified atrial fibrillation; Z79.899 Other long term (current) drug therapy
CPT/HCPCS: 71260; 85025; 85610; 94640; 99285-25; Q9967

== ENCOUNTER 2020-10-17 08:46 | Emergency (ER) | payer MEDICARE, OTHER ==
[~2020-10-17] VITALS: Ht 177.8 cm; Wt 62.1 kg
[~2020-10-17 08:46] MED LIST changes: +ASPIR 8181 MG PO; +ATORVASTATIN CA10 MG PO; -COUMADIN5 MG PO; +METOPROLOL SUCC25 MG PO
== END 2020-10-17 10:22 | disposition home or self-care (01) ==
LOC: ED 08:46
DX: S51.812A Laceration without foreign body of left forearm, initial encounter (principal); R79.1 Abnormal coagulation profile; W22.8XXA Striking against or struck by other objects, initial encounter; I10 Essential (primary) hypertension; I48.91 Unspecified atrial fibrillation; Z79.899 Other long term (current) drug therapy; Z79.01 Long term (current) use of anticoagulants; Z79.82 Long term (current) use of aspirin
CPT/HCPCS: 12001; 85610; 99283-25

== ENCOUNTER 2021-07-18 10:54 | Emergency (ER) | payer MEDICARE, OTHER ==
[~2021-07-18] VITALS: Ht 177.8 cm; Wt 66.2 kg
[2021-07-18] MEDS ORDERED: HYDROCODON-ACE1 EA10 PO (12:27)
== END 2021-07-18 12:38 | disposition home or self-care (01) ==
LOC: ED 10:54
DX: S92.354A Nondisplaced fracture of fifth metatarsal bone, right foot, initial encounter for closed fracture (principal); X50.9XXA Other and unspecified overexertion or strenuous movements or postures, initial encounter; I10 Essential (primary) hypertension; I48.91 Unspecified atrial fibrillation; Z79.899 Other long term (current) drug therapy; Z79.01 Long term (current) use of anticoagulants; Z79.82 Long term (current) use of aspirin
CPT/HCPCS: 73630; 99283-25

== ENCOUNTER 2022-07-20 16:05 | Emergency (ER) | payer MEDICARE, OTHER ==
[~2022-07-20] VITALS: Ht 177.8 cm; Wt 66.2 kg
[~2022-07-20 16:05] MED LIST changes: +ALENDRONATE SOD70 MG PO; +HYDROCODON-ACE1 EA10 PO; +SILDENAFIL CITR50 MG PO
[2022-07-20 21:18] VITALS: BP 139/87
== END 2022-07-20 21:27 | disposition short-term general hospital (02) ==
LOC: ED 16:05
DX: S30.1XXA Contusion of abdominal wall, initial encounter (principal); I10 Essential (primary) hypertension; Z79.899 Other long term (current) drug therapy; Z79.01 Long term (current) use of anticoagulants; Z79.890 Hormone replacement therapy; Z79.82 Long term (current) use of aspirin; X58.XXXA Exposure to other specified factors, initial encounter
CPT/HCPCS: 36415; 80053; 85025; 85610; 86850; 86900; 86901; 87502; C9803; J3430; J7121; U0003

== ENCOUNTER 2023-09-15 04:47 | Emergency (ER) | payer MEDICARE ==
[~2023-09-15] VITALS: Ht 177.8 cm; Wt 67.7 kg
[~2023-09-15 04:47] MED LIST changes: +ENOXAPARIN60 MG/0.6 SUB-Q
[2023-09-15] MEDS ORDERED: MORPHINE SULFATE 4 MG/ML VIAL IV ONE (05:15)
[2023-09-15] MEDS ORDERED: METOPROLOL TARTRATE 50 MG TAB PO ONE (05:15)
[2023-09-15 05:32] LABS: BASOPHILS 0.5 % (0-2); EOSINOPHILS 2.7 % (0-6); HEMATOCRIT 31.3 % (35.0-50.0); HEMOGLOBIN 10.5 g/dL (12.0-18.0); LYMPHOCYTES 3.3 % (24-44); MCHC 33.6 g/dl (30-36); MCV 95.3 fl (81-99); MONOCYTES 4.3 % (0-12); NEUTROPHILS 89.2 % (39-80); PLATELET COUNT 215 K/uL (140-440); RBC 3.28 M/ul (4.3-5.7); RDW 13.7 (10.5-15.0)
[2023-09-15 05:45] LABS: ALBUMIN 3.9 g/dL (3.4-5.0); ALBUMIN/GLOBULIN RATIO 1.44 (1.1-2.4); ANION GAP 13.5 (7-21); BILIRUBIN, TOTAL 0.8 ng/dL (0.2-1.0); BUN/CREATININE RATIO 24.62 (6.0-28.6); CALCIUM 7.9 mg/dL (8.5-10.1); CREATININE, SERUM 1.34 mg/dL (0.70-1.30); POTASSIUM 4.5 mmol/L (3.5-5.1); PROTEIN, TOTAL 6.6 g/dL (6.4-8.2)
[2023-09-15 05:55] LABS: INR 4.1 (0.80-1.30); PROTIME 39.6 Sec (11.2-14.2)
[2023-09-15] MEDS ORDERED: ondansetron HCL 4 MG/2 ML VIAL IV ONE (06:30)
[2023-09-15] MEDS ORDERED: FAMOTIDINE 20 MG/ 2 ML VIAL IV ONE (06:30)
[2023-09-15] MEDS ORDERED: diphenhydrAMINE HCL 50 MG/ML VIAL IV PRN (07:15)
[2023-09-15] MEDS ORDERED: SODIUM CHLORIDE 0.9% 50 ML IV PRN (07:15)
[2023-09-15] MEDS ORDERED: HUMAN PROTHROMBIN COMPLX(PCC) 500 UNIT/20 ML VIAL IV ONE (07:15)
[2023-09-15 07:20] LABS: BILIRUBIN, URINE NEGATIVE (negative); BLOOD/HGB, URINE NEGATIVE (Negative); KETONE, URINE NEGATIVE (Negative); LEUK ESTERASE, URINE NEGATIVE (negative); NITRITE, URINE NEGATIVE (negative)
[2023-09-15] MEDS ORDERED: PHYTONADIONE 10 MG in DEXTROSE 5% 50 ML IV ONE (07:45)
[2023-09-15 08:54] LABS: BASOPHILS 0.2 % (0-2); HEMATOCRIT 28.3 % (35.0-50.0); HEMOGLOBIN 9.5 g/dL (12.0-18.0); LYMPHOCYTES 2.4 % (24-44); MCH 31.9 (27-36); MCHC 33.4 g/dl (30-36); MCV 95.6 fl (81-99); MONOCYTES 4.5 % (0-12); NEUTROPHILS 91.9 % (39-80); PLATELET COUNT 193 K/uL (140-440); RBC 2.96 M/ul (4.3-5.7); RDW 13.6 (10.5-15.0)
[2023-09-15 09:02] LABS: INR 1.52 (0.80-1.30); PROTIME 17.4 Sec (11.2-14.2)
[2023-09-15] MEDS ORDERED: HYDROmorphone HCL 1 MG/ML SYR IV PRN (09:30)
[2023-09-15 10:41] LABS: BASOPHILS 0.2 % (0-2); EOSINOPHILS 0.7 % (0-6); HEMATOCRIT 28.5 % (35.0-50.0); HEMOGLOBIN 9.6 g/dL (12.0-18.0); LYMPHOCYTES 3.3 % (24-44); MCH 32.1 (27-36); MCHC 33.7 g/dl (30-36); MCV 95.2 fl (81-99); MONOCYTES 8.8 % (0-12); PLATELET COUNT 204 K/uL (140-440); RDW 13.7 (10.5-15.0)
[2023-09-15 11:30] VITALS: BP 118/89
--- NOTE | 2023-09-17 23:11 | EKG ---
[facility] [address] [facility] [place] [address] Signed Atrial flutter with variable AV block Nonspecific T wave abnormality Abnormal ECG When compared with ECG of 21-DEC-2021 17:22, Atrial flutter has replaced Sinus rhythm Vent. rate has increased BY 48 BPM Confirmed by Caren Rowe MD () on 09/17/2023 11:11:01 PM Electronically Signed By: CAREN ROWE MD 09/17/23 2311 PATIENT NAME: OJ MORIN Electrocardiogram DATE OF : 47 PHYSICIAN: CAREN ROWE MD REPORT #: [id number] REPORT IS CONFIDENTIAL AND NOT TO BE RELEASED WITHOUT AUTHORIZATION
== END 2023-09-15 12:23 | disposition short-term general hospital (02) ==
LOC: ED 04:47
PROVIDERS: Emergency Medicine; Internal Medicine
DX: M79.81 Nontraumatic hematoma of soft tissue (principal); T45.515A Adverse effect of anticoagulants, initial encounter; I10 Essential (primary) hypertension; I48.91 Unspecified atrial fibrillation; Z79.899 Other long term (current) drug therapy; Z79.82 Long term (current) use of aspirin; Z79.01 Long term (current) use of anticoagulants
CPT/HCPCS: 36415; 74177; 80053; 81003; 85025; 85610; 85730; 86140; 93005; 93010; J1170; J2270; J2405; J3430; J7168; Q9967

== ENCOUNTER 2024-07-16 07:32 | Day surgery (SDC) | payer MEDICARE ==
[~2024-07-16] VITALS: Ht 177.8 cm; Wt 67.7 kg
[~2024-07-16 07:32] MED LIST changes: +AMPICILLIN SOD 2 GM in SODIUM CHLORIDE 0.9% 100 ML IV SCH; +ENOXAPARIN40 MG/0.4 SUB-Q; +GENTAMICIN SULFATE 160 MG in SODIUM CHLORIDE 0.9% 100 ML IV SCH; +IBLOOD GLUCOSE TEST STRIP 1 EA TEST VI PRN; +LACTATED RINGER'S 1,000 ML IV SCH; +LIDOCAINE HCL 1% 5 ML SDV INJ ONE; +MAGNESIUM250 M1 PO; +MIDAZOLAM HCL 5 MG/5 ML VIAL IV PRN; +NUTRISOURCE FI1 EACH PO; +VITAMIN C500 M1 PO; +VITAMIN D325 MCG PO; +fentaNYL citrate 100 MCG/2 ML VIAL IV PRN
--- NOTE | 2024-07-16 07:50 | NUR ---
PT NOT VAILABLE FOR VISIT. PROVIDED PRAYER.
[2024-07-16 07:55] VITALS: BP 138/85
[2024-07-16] MEDS ORDERED: MIDAZOLAM HCL 5 MG/5 ML VIAL ONE (08:16)
[2024-07-16] MEDS ORDERED: fentaNYL citrate 100 MCG/2 ML VIAL ONE (08:16)
--- NOTE | 2024-07-16 09:53 | NUR ---
07/16/24 0953 Vivi Benz 0938 PT ARRIVED IN PACU SLEEPY WITH NO C/O'S. ABD SOFT. 0945 AT BEDSIDE. ALL QUESTIONS ANSWERED.
[2024-07-16 10:05] VITALS: BP 112/69
--- NOTE | 2024-07-18 11:03 | OR ---
[facility] [address] [place], [place] [address] Signed DATE OF OPERATION: 07/16/2024 SURGEON: Delisa Eng MD PREOPERATIVE DIAGNOSES: 1. 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 2. History of aortic and mitral valve replacement and ongoing atrial fibrillation, anticoagulated by Coumadin. POSTOPERATIVE DIAGNOSIS: Three small polyps rectosigmoid excised. PROCEDURE: Total colonoscopy to cecum with cold morcellation polypectomy x3. ANESTHESIA: Intravenous sedation, fentanyl 100 mcg and Versed 4 mg. INDICATION: This 79-year-old white man is patient Dr. Rojas and last underwent colonoscopy in 2005, at which time he had a benign villous adenoma at 15 cm, which was resected. In the meantime, he is now chronically anticoagulated for atrial fibrillation, but has history of aortic and possible mitral valve replacement in the past. He has been initiated on bridge therapy, anticipating colonoscopy and preoperative antibiotic ampicillin and gentamicin has been given as well. He understands the risk of bleeding, infection, and perforation related to colonoscopy and wished to proceed. FINDINGS: The prep was excellent. Complete colonoscopy was undertaken of the cecum with full intubation of the cecum. He had three very small polyps of the rectosigmoid, which were excised with cold morcellation technique. The remaining colon showed a few diverticula. There were no other findings of note. DESCRIPTION OF PROCEDURE: The patient was brought to the endoscopy suite and placed in lateral decubitus position given intravenous sedation to the point of slurred speech and nystagmus. Digital rectal examination was normal. An Olympus video colonoscope was passed in the rectum and manipulated throughout the colon ultimately intubating the cecum itself. The ileocecal valve and appendiceal Electronically Signed By: DELISA ENG MD 07/18/24 1103 PATIENT NAME: OJ MORIN OPERATIVE REPORT DATE OF : 47 REPORT #: [id number] PHYSICIAN: DELISA ENG MD PCP: RUSS ROJAS DO REPORT IS CONFIDENTIAL AND NOT TO BE RELEASED WITHOUT AUTHORIZATION [facility] [address] [place], [place] [address] Signed orifice were normal. The scope was withdrawn from that point and careful inspection throughout showed no sign of abnormality other than diverticula until the rectosigmoid with three very small polyps were noted. Narrow-band imaging confirmed it to be possibly adenomatous. All three were excised completely and passed in the same jar given their proximity. Retroflexed view of the rectum was otherwise normal. Scope was removed. The patient was taken to the recovery room in good condition. CONCLUDING DIAGNOSIS: Small polyps x3. PLAN: Recommend repeat colonoscopy in 7-10 years. He will continue with a bridge therapy plan as outlined, which includes Lovenox daily. He will reinitiate his Coumadin today. He is due to be seen in the Coumadin clinic on Tuesday, which is perfectly acceptable. I would expect him to be re-anticoagulated affectively within the next three days or four days with his Coumadin anyway. It is noted that he did undergo ampicillin and gentamicin prophylactic antibiotic preoperatively. MD FARAZ Greer/KRYSTIAN /[id number] cc: Russ Rojas DO Copies: RUSS ROJAS DO ~ Electronically Signed By: DELISA ENG MD 07/18/24 1103 PATIENT NAME: OJ MORIN OPERATIVE REPORT DATE OF : 47 REPORT #: [id number] PHYSICIAN: DELISA ENG MD PCP: RUSS ROJAS DO REPORT IS CONFIDENTIAL AND NOT TO BE RELEASED WITHOUT AUTHORIZATION
--- NOTE | 2024-07-18 15:07 | PATH ---
[facility] [address] [facility] [place], [place] [address] Signed SPECIMEN(S): A RECTOSIGMOID POLYPS SPECIMEN SOURCE: A. RECTOSIGMOID POLYPS CLINICAL HISTORY: History of polyps FINAL PATHOLOGIC DIAGNOSIS: Rectosigmoid polyps: - Hyperplastic polyps (multiple fragments). JVR:clv MICROSCOPIC EXAMINATION: Histologic sections of all submitted blocks are examined by light microscopy. These findings, together with the gross examination, support the pathologic diagnosis. GROSS DESCRIPTION: The specimen, labeled and designated "Devon rectosigmoid polyps," is received in formalin and consists of five wynne soft tissue fragments, ranging from 0.2-0.5 cm. Entirely submitted in (A1). VB (under the direct supervision of a pathologist) The Gross Description was prepared using a voice recognition system. The report was reviewed for accuracy; however, sound-alike word errors, addition and/or deletions may occur. If there is any question about this report, please contact Client Services. PERFORMING LABORATORY: Technical component was performed by [facility], [address] [place] [address] (CLIA# [id number]). Professional interpretation was performed by [facility], [address] [place] [id number] (CLIA#: [id number]). Diagnostician: Carmine Reinoso MD Pathologist Electronically Signed 07/18/2024 Copies: PATIENT NAME: OJ MORIN PATHOLOGY DATE OF : 47 REPORT #: [id number] PHYSICIAN: ERIN REES PCP: JOSE ROJAS DO REPORT IS CONFIDENTIAL AND NOT TO BE RELEASED WITHOUT AUTHORIZATION [address] [address] Signed ~ PATIENT NAME: OJ MORIN PATHOLOGY DATE OF : 47 REPORT #: [id number] PHYSICIAN: ERIN REES PCP: JOSE ROJAS DO REPORT IS CONFIDENTIAL AND NOT TO BE RELEASED WITHOUT AUTHORIZATION
== END 2024-07-16 10:15 | disposition home or self-care (01) ==
LOC: OPS 07:32 → DS 07:32 → OPS 08:30
PROVIDERS: ATTEND Surgery
PROC: 0DBN8ZZ Excision of Sigmoid Colon, Via Natural or Artificial Opening Endoscopic (ICD-10-PCS; principal; 2024-07-16 08:30)
DX: K63.5 Polyp of colon (principal); I48.20 Chronic atrial fibrillation, unspecified; Z79.01 Long term (current) use of anticoagulants; Z79.899 Other long term (current) drug therapy; Z95.2 Presence of prosthetic heart valve; Z95.4 Presence of other heart-valve replacement
CPT/HCPCS: 88305; 99153; G0500; J0290; J1580; J2250; J3010; J7121